=== PATIENT | female | born 1965 | race Caucasian/White ===

== ENCOUNTER 2022-09-27 08:29 | Outpatient (REF) | payer MEDICARE, SELFPAY ==
--- NOTE | ~2022-09-27 | XR_ITS ---
EXAMINATION: XR SHOULDER, RIGHT CLINICAL INFORMATION: Shoulder pain COMPARISON: None available. TECHNIQUE: Three views of the right shoulder. FINDINGS: Mild osteoarthritic changes acromioclavicular joint. Advanced degenerative changes glenohumeral joint with prominent inferior osteophytes and hypertrophic change. Focal ossific/calcific convexity along the central superior aspect of the humeral head. Degenerative changes in the imaged upper thoracic spine. XR/XR shoulder RT min 2V IMPRESSION: Advanced degenerative changes glenohumeral joint . Focal ossific/calcific convexity along the central superior aspect of the humeral head. Additional imaging with CT scan or MRI should be considered for better visualization as these modalities are much more sensitive for detection of fracture or other underlying pathology.
== END 2022-09-27 08:30 | disposition home or self-care (01) ==
LOC: HO.HOSX 08:29
PROVIDERS: Visit Provider Orthopaedic Surgery
DX: M19.011 Primary osteoarthritis, right shoulder (principal)
CPT/HCPCS: 20610; 73030; 99202; J1100

== ENCOUNTER 2022-09-27 10:41 | Outpatient (AMB) | payer MEDICARE, SELFPAY ==
--- NOTE | 2022-09-27 10:45 | A.OFFVIS_ITS ---
Intake Vital Signs 09/27/22 10:55 Height 5 ft 5.5 in Weight 142 lb BMI 23.3 Intake Visit Reasons: SEVERITY OF ILLNESS COORDINATOR- RT Shoulder pain Intake Note: Marylin is a 57 year old right hand dominant female who presents today as a new patient with complaints of right shoulder pain. Patient reports that she has been having pain in the right shoulder since about April, she is active in working out when she felt a pop while working with kettlebells. She was seen with her pcp, who sent her to physical therapy. She has been working with [facility] in [place] for about 4 sessions with no releif. She feels tingling in the right hand, she finds increased pain with reaching, lifting and while sleeping as she sleeps on the right side. She is taking Meloxicam for her pain which helps mildy. Allergies tramadol [From [facility]] Allergy (Intermediate, Unverified 11/15/19 16:23) RASH FRUIT, SKINS Allergy (Intermediate, Uncoded 11/15/19 16:23) THROAT ITCHES HPI SEVERITY OF ILLNESS COORDINATOR- RT Shoulder pain HPI Details Marylin is a 57 year old woman who complains of ~5 months right shoulder pain. She has pain with reach and lifting activities, worse at night. She says she has difficulty sleeping on her right side. She says she was active and exercising at home when she felt a painful popping in her shoulder while lifting Kettlebells. She has done a few sessions of PT, with no relief. She finds mild relief from meloxicam. She has a hx of left shoulder several years ago at an outside clinic. She says her right shoulder symptoms feel similar. She has a hx of left TKA done by me. She says this is doing well, she has some mild pain but this is tolerable. 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 - Review of Systems Const All systems reviewed & are unremarkable except as noted in HPI and below Physical Exam Vital Signs: BMI result Body Mass Index 23.3 Const General: no acute distress, alert and awake Orientation/consciousness: patient oriented x3 HEENT Head: Yes normocephalic and Yes atraumatic Eyes EOM: EOMs intact bilaterally Resp Effort & Inspection: normal respiratory effort and able to speak in complete sentences Cardio Jugular venous distension: no JVD Skin General skin exam: turgor normal Rashes: no rashes Neuro General: patient oriented x3 Extrem Other: Right Shoulder: Pain at 20 degrees ER Limited ER with abduction - empty can - impingement Psych Appearance: grossly normal Affect: normal affect Attitude: cooperative Office Procedures Joint Injection/Drain Joint Injection/Drain Details: Injected 1 mL of Decadron and 3 mL 1% lidocaine and 3 mL of 0.25% Marcaine. Site was prepped using aseptic technique. Patient tolerated the procedure well. Primary Site: right shoulder (GH joint) Approach Used: posterolateral Coding 40507 - Large joint Procedure code (CPT) selection complete Results Reviewed Results Reviewed: 09/27/22 11:26 BUPivacaine MPF 0.25 % [Sensorcaine-MPF 0.25% 10 ML] 10 ml .ROUTE .STK-MED ONE Lidocaine HCl 2 % MPF [Xylocaine 2 % MPF] 5 ml .ROUTE .STK-MED ONE dexAMETHasone sod phosphate [Decadron] 4 mg .ROUTE .STK-MED ONE I personally reviewed relevant radiographs. Moderate GH OA with inferior osteophytes Assessment & Plan Assessment & Plan (1) Osteoarthritis of right shoulder: Code(s): M19.011 - Primary osteoarthritis, right shoulder Plan: This is a 57 year old woman with right shoulder GH OA. She has pain with daily activity, worse with reaching & lifting activities, ROM, and at night. Her motion is limited and she has found no relief from steroid injections, PT, or NSAIDs. I discussed her diagnosis and treatment options. I injected her right GH joint, which she tolerated well. I recommend NSAIDs & PT. I ordered a new course of PT, she can follow up prn. Plan Scribed for Guilherme Calix MD by Usman Diallo, medical coding manager, on 09/27/22 at 11:20 AM, EST. Orders: Orders XR shoulder RT min 2V 09/27/22 M25.519 - Pain in unspecified shoulder PT Evaluation and Treatment 09/27/22 M19.011 - Primary osteoarthritis, right shoulder Coding Level of Care Code New Pt Level 4 (19142) Diagnoses Osteoarthritis of right shoulder M19.011 CPT Codes Coding - 85721 Large joint: 30271 - Large joint ([id number])
[2022-09-27 10:55] VITALS: BMI 23.3
== END 2022-09-27 11:43 | disposition home or self-care (01) ==
PROVIDERS: PCP Internal Medicine; Visit Provider Orthopaedic Surgery
DX: M19.011 Primary osteoarthritis, right shoulder (principal)
CPT/HCPCS: 20610; 99204

== ENCOUNTER 2022-10-15 13:00 | Outpatient (RCR) | payer MEDICARE, SELFPAY | END 2022-10-15 13:49 | disposition home or self-care (01) | LOC: HO.PTCHIC 13:00 | PROVIDERS: PCP Student in an Organized Health Care Education/Training Program; Visit Provider Physician Assistant Medical | DX: M25.511 Pain in right shoulder (principal) | CPT/HCPCS: 97014; 97110; 97140; 97161 ==

== ENCOUNTER 2024-09-27 08:10 | Outpatient (REF) | payer OTHER, SELFPAY ==
--- NOTE | ~2024-09-27 | XR_ITS ---
EXAMINATION: XR KNEE, LEFT CLINICAL INFORMATION: M25.562 - Pain in left knee COMPARISON: 05/26/2015. TECHNIQUE: Three views of the left knee. FINDINGS: No fracture, dislocation, or suspicious bone lesion. There is normal alignment. There is notable patella catherine. 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 Cannot exclude underlying patellar tracking abnormality. Mild tricompartmental compartment joint space narrowing, with small marginal osteophytic spurs. No significant joint effusion. Normal soft tissues. XR/XR knee LT 3V IMPRESSION: 1. No acute bony abnormalities of the left knee. 2. Mild tricompartmental osteoarthritis. 3. Patella catherine with enthesopathic spurring of the tibial tubercle, possibly on the basis of old Lee-Schlatter disease. This is stable from 2016. Electronically signed by: Aquiles Curtis MD 09/27/2024 01:36 PM EDT
--- OUTSIDE RECORDS SUMMARY | 2024-09-28 08:14 | XMS_ITS | Clinical Summary ---
Author Organization [facility] it Address [address] [place] [address] Care Team Providers Care Hydramatic Specialist Name Role Phone Rena Cunningham MD Primary [...] age to complete this topic Care Teams Hydramatic Specialist Relationship Specialty Start Date End Date Rena Cunningham MD [address] [address] PCP - General Internal Medicine 04/11/17
--- OUTSIDE RECORDS SUMMARY | 2024-09-28 08:14 | XMS_ITS | Clinical Summary ---
Author Organization [facility] Address [address] [place] [address] Care Team Providers Care Bill Peddler Name Role Phone Rena Cunningham MD Primary [...] age to complete this topic Care Teams Bill Peddler Relationship Specialty Start Date End Date Rena Cunningham MD [address] [address] PCP - General Internal Medicine 04/11/17
--- OUTSIDE RECORDS SUMMARY | 2024-09-28 08:14 | XMS_ITS | Patient Health Record ---
Author Organization [facility] Address [address] [place] [address] Care Team Providers Care Warehousing Technician Name Role Phone Julissa Atkinson MD, Rena Preston Primary Care Prov ider Unavailable Angel Marroquin Unavailable [phone] Allergies Allergen (clinical drug ingredient) Drug/Non Drug [...] primary osteoarthritis of the ankle and/or foot ([id number]) Primary osteoarthrit is, left ankle and foot (M19.072) Active confirmed Plan Of Treatment Pending Test Test Name Order Date , [id number]/INJECT, JOINT/BURSA 0 06/26/2019 Insurance Providers Payer Name Payer Address Payer Phone Subscriber Number Group Number Insured Name Patient Relationship to Insured Coverage Start Date Coverage End Date [facility] SCO Claims [address] [place] [phone] [id number] Marylin Moss Self - patient is the insured Medical (General) History Medical History History ICD Code Arthritis Back,Hip,and Knee pain Sciatica Surgical History Surgery Date(Month/Year) right knee osteotomy 06/2014
== END 2024-09-27 08:11 | disposition home or self-care (01) ==
LOC: HO.HOSX 08:10
PROVIDERS: Visit Provider Orthopaedic Surgery
DX: M17.12 Unilateral primary osteoarthritis, left knee (principal); M25.562 Pain in left knee; Z79.899 Other long term (current) drug therapy; Z98.890 Other specified postprocedural states
CPT/HCPCS: 73562; 99212

== ENCOUNTER 2024-09-27 13:19 | Outpatient (AMB) | payer MEDICARE, SELFPAY ==
--- NOTE | 2024-09-27 13:22 | MHC.OFFVIS ---
Intake Visit Reasons: New prob-Lt knee pain Intake Note: Marylin is a 59 year old female who presents today as a new patient for left knee pain. Patient states she had an injury on [facility] [place] day of this year where she twisted her knee. She is a previous patient of Dr. José. She has gone to physical therapy but has not gotten any relief. X rays were updated in the office today and she is currently wearing a brace. The patient states that she had similar pain in her left knee approximately 2 years ago. She was evaluated at [facility] by DANIEL Braun. She was given a cortisone injection into her left knee at that time which gave her minimal relief. She has not had a viscosupplementation injection. She wishes to hold off on surgery if at all possible. She has failed the last 3 months of conservative treatment. At this point her left knee pain is interfering with her activities of daily living and her ability to sleep well through the night. Heel Trimmer Required: No Allergies tramadol (From [facility]) Allergy (Intermediate, Unverified 09/27/24 13:27) RASH FRUIT, SKINS Allergy (Intermediate, Uncoded 09/27/24 13:27) THROAT ITCHES Medication List - Last Reconciled 09/27/24 by Izabella Art RN meloxicam 7.5 mg PO DAILY multivitamin 1 tab PO DAILY PFSH Surgical History (Updated 09/27/24 @ 13:29 by Izabella Art RN) History of right shoulder replacement H/O left knee surgery History of arthroscopy of left shoulder Social History (Updated 09/27/22 @ 10:58 by Jazzy Nash CMA) Patient Tobacco Use Status: Never used Tobacco Current occupational status: employed 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 - Physical Exam Const Other: Well-nourished well-developed very friendly female awake alert and oriented x3 in no acute distress Extrem Other: Bilateral lower extremity examination shows good capillary refill, no skin lesions noted, normal sensation light touch Left knee examination shows a minimal effusion, palpable crepitus with range of motion, pain with range of motion, no instability Results Reviewed Results Reviewed: X-rays of the patient's left knee show moderate to severe patellofemoral joint space narrowing, subchondral sclerosis, no acute bony abnormalities MRI report of the patient's left knee shows no evidence of meniscus tearing, no ligamentous injury, severe patellofemoral joint degenerative changes Assessment & Plan Assessment & Plan (1) Osteoarthritis of left knee: Code(s): M17.12 - Unilateral primary osteoarthritis, left knee Category: Medical Plan Ms. Moss presents with left knee pain due to osteoarthritis. I had a lengthy discussion with the patient regarding the treatment options. She wishes to hold off on surgery for as long as possible. I agree with this plan. I will see if her insurance company will cover a viscosupplementation injection, such as Durolane, for her left knee. I will see her back once the injection is available. Feel free to call me at any time should questions regarding her orthopedic management arise. I spent 22 minutes in reviewing the patient's records and imaging studies, seeing the patient and documenting in the medical record. Orders: Orders XR knee LT 3V Today M25.562 - Pain in left knee Coding Level of Care Code Est Pt Level 3 (81947) Complex EM visit Add On G2211 Diagnoses Osteoarthritis of left knee M17.12
--- OUTSIDE RECORDS SUMMARY | 2024-09-27 13:32 | XMS_ITS | Clinical Summary ---
Author Organization [facility] Address [address] [place] [address] Care Team Providers Care Oyster Picker Name Role Phone Rena Cunningham MD Primary Care Prov ider Allergies Active Allergy Reactions Criticality Noted Date Comments Tramadol 04/19/2017 Medications Medication Sig Dispensed Refills Start Date End Date Status traZODone (DESYREL) 50 MG tablet trazodone 25 mg tablet 0 Active gabapentin (NEURONTIN) 300 MG capsule TAKE 2 CAPSULE(S) EVERY DAY BY BY MOUTH AT BEDTIME FOR 30 DAYS. 1 02/22/2018 Active lamoTRIgine (LaMICtal) 150 MG tablet 0 11/20/2019 Active cyclobenzaprine (FLEXERIL) 5 MG tablet TAKE 1 TABLET BY MOUTH AT BEDTIME NEEDED FOR 30 DAYS 0 04/30/2020 Active meloxicam (MOBIC) 15 MG tablet Take 15 mg by mouth daily. 0 04/30/2020 Active diclofenac (VOLTAREN) 50 MG EC tablet diclofenac sodium 50 mg tablet,delayed release BID 0 06/04/2013 Active ibuprofen 800 MG tablet Take 800 mg by mouth every 8 (eight) hours as needed. for pain 0 06/27/2020 Active oxyCODONE HCl ER (OxyCONTIN) 10 MG T12A controlled release tablet OxyContin 10 mg tablet,crush resistant,extended release 0 Active oxyCODONE-acetaminop hen (PERCOCET) 10-325 MG per tablet oxycodone-acetaminop hen 10 mg-325 mg tablet 0 Active tamsulosin (FLOMAX) 0.4 MG CAPS tamsulosin 0.4 mg capsule 0 Active HYDROmorphone (DILAUDID) 2 MG tablet 0 2021 Active GaviLyte-C 240 g solution TAKE 8 OUNCE BY MOUTH DIRECTED 0 04/06/2021 Active Active Problems Problem Noted Date Diagnosed Date Shoulder stiffness, left 05/06/2021 Tear of ulnar collateral ligament of left elbow 09/26/2019 Tear of medial collateral li gament of elbow, left, subsequent encounter 09/26/2019 Primary osteoarthritis of right knee 01/15/2018 Acute pain of right knee 04/19/2017 Immunizations Name Administration Dates Next Due Covid-19 (Pfizer) Dilution Required 02/12/2021,0 07/06/2020,06/12/2020 Covid-19 (Pfizer) Ready To Use 07/13/2021 Family History Medical History Relation Name Comments Heart disease Brother Hypertension Brother Arthritis Mother Hypertension Mother Arthritis Sister Relation Name Status Comments Brother Mother Sister Social History Tobacco Use Types Packs/Day Years Used Date Smoking Tobacco: Never Smokeless Tobacco: Never Alcohol Use Standard Drinks/Week Comments Yes 2 (1 standard drink = 0.6 oz pur e alcohol) Sex and Gender Information Value Date Recorded Sex Assigned at Female 09/20/2019 10:51 AM EDT Gender Identity Not on file Sexual Orientation Not on file Job Start Date Occupation Industry Not on file Not on file Not on file Last Filed Vital Signs Vital Sign Reading Time Taken Comments Blood Pressure - - Pulse - - Temperature - - Respiratory Rate - - Oxygen Saturation - - Inhaled Oxygen Concentration - - Weight 64.9 kg (143 lb) 05/06/2021 1:19 PM EST Height 165.1 cm (5' 5 ) 05/06/2021 1:19 PM EST Body Mass Index 23.8 05/06/2021 1:19 PM EST Plan of Treatment Health Maintenance Due Date Last Done Comments Hepatitis B Vaccines (1 of 3 - 3-dose series) 1965 Hepatitis C Screening 1965 Depression Screening 1977 BMI Counseling 1983 Preventative Health Evaluation 1983 Cervical Cancer Screening (Pap Smear) 1986 Colon Cancer Screening (Colonoscopy) 2010 Breast Cancer Screening (Mammogram) 2015 Shingrix-Zoster Vaccine (1 of 2) 2015 DTap / Tdap / Td (2 - Td or Tdap) 06/02/2022 06/02/2012 COVID-19 Vaccine ( season) 2023 07/13/2021, 02/12/2021, 07/06/2020, Additional history exists Influenza Vaccine (#1) 2024 Pneumococcal Vaccine Aged Out No long er eligible based on patient's age to complete this topic RSV Ped < 20 months Aged Out No longe r eligible based on patient's age to complete this topic Care Teams Oyster Picker Relationship Specialty Start Date End Date Rena Cunningham MD [address] [address] PCP - General Internal Medicine 04/11/17
--- OUTSIDE RECORDS SUMMARY | 2024-09-27 13:32 | XMS_ITS | Patient Health Record ---
Author Organization [facility] Address [address] [place] [address] Care Team Providers Care Development Assistant Name Role Phone Julissa Atkinson MD, Rena Preston Primary Care Prov ider Unavailable Angel Marroquin Unavailable [phone] Allergies Allergen (clinical drug ingredient) Drug/Non Drug Allergy documented on EMR Reaction Allergy Type Onset Date Status tramadol Ultram rash Drug Allergy Active Reason For Referral No Information Medications Medication SIG (Take, Route, Fr equency, Duration) Notes Start Date End Date Status Meloxicam 15 MG 1 tablet Orally Once a day; Duration: 30 day(s) Active TraZODone HCl ER Act chioma Gabapentin 300 MG 1 capsule Orally Onc e a day; Duration: 30 day(s) Active Social History Tobacco Use: Social History Observation Description Date Details (start date - stop date) Never Smoker NA - NA Tobacco Use/Smoking Question Answer Notes Are you a: nonsmoker Additional Findings: Tobacco Non-User Current no n-smoker Alcohol Screen Question Answer Notes Did you have a drink contain ing alcohol in the past year? Yes How often did you have a dri nk containing alcohol in the past year? 2 to 4 times a month (2 points) Points 2 Interpretation Negative Tobacco use other than smoking: Question Answer Notes Are you an other tobacco user? No Problems Problem Type SNOMED Code ICD Code Onset Dates Problem Status W/U Status Risk Notes Problem Localized, primary osteoarthritis of the ankle and/or foot (916809910) Primary osteoarthrit is, left ankle and foot (M19.072) Active confirmed Plan Of Treatment Pending Test Test Name Order Date , [id number]/INJECT, JOINT/BURSA 0 06/26/2019 Insurance Providers Payer Name Payer Address Payer Phone Subscriber Number Group Number Insured Name Patient Relationship to Insured Coverage Start Date Coverage End Date [facility] SCO Claims [address] [place] [id number] Marylin Moss Self - patient is the insured Medical (General) History Medical History History ICD Code Arthritis Back,Hip,and Knee pain Sciatica Surgical History Surgery Date(Month/Year) right knee osteotomy 06/2014
--- OUTSIDE RECORDS SUMMARY | 2024-09-27 13:32 | XMS_ITS | Clinical Summary ---
Author Organization [facility] it Address [address] [place] [address] Care Team Providers Care Photographic Colorist Name Role Phone Rena Cunningham MD Primary Care Provider Surgical History Surgery Date Site/Laterality Comments KNEE SURGERY PROCEDURE:KNEE SURGERY SHOULDER SURGERY PROCEDURE:SHOULDER SURGERY Medical History Medical History Date Comments Arthritis DX:Arthritis Family History Medical History Relation Name Comments Heart disease Brother Hypertension Brother Arthritis Mother Hypertension Mother Arthritis Sister Relation Name Status Comments Brother Mother Sister Social History Tobacco Use Types Packs/Day Years Used Date Smoking Tobacco: Never Smokeless Tobacco: Never Alcohol Use Standard Drinks/Week Comments Yes 2 (1 standard drink = 0.6 oz pur e alcohol) Comments Unknown Sex and Gender Information Value Date Recorded Sex Assigned at Not on file Legal Sex Female 9:07 AM EST Gender Identity Not on file Sexual Orientation Not on file Obstetrics History Last Filed Vital Signs Vital Sign Reading [...] Health Maintenance Due Date Last Done Comments Breast Cancer Screening 1965 DTaP,Tdap,and Td Vaccines (1 - Tdap) 02/17/1984 Hepatitis B Vaccines (1 of 3 - 19+ 3-dose series) 02/17/1984 Cervical Cancer Screening: Pap Smear 1986 Pneumococcal Vaccine: 50+ Years (1 of 1 - PCV) 2015 Zoster Vaccines (1 of 2) 2015 Colorectal Cancer Screening: Colonoscopy 01/31/2022 HIV Screening 01/31/2022 Hepatitis C Screening 01/31/2022 Social Influencers of Health Screening 01/31/2022 COVID-19 Vaccine ( season) 2023 07/13/2021, 02/12/2021, 07/06/2020, Additional history exists Depression Screening 02/29/2024 Influenza Vaccine (#1) 2024 RSV Immunization Adult Patients (1 - 1-dose 75+ series) 02/17/2040 HIB Vaccines Aged Out No longer eligi ble based on patient's age to complete this topic HPV Vaccines Aged Out No longer eligi ble based on patient's age to complete this topic Hepatitis A Vaccines Aged Out No long er eligible based on patient's age to complete this topic IPV Vaccines Aged Out No longer eligi ble based on patient's age to complete this topic MMR Vaccines Aged Out No longer eligi ble based on patient's age to complete this topic Meningococcal ACWY Vaccine Aged Out N o longer eligible based on patient's age to complete this topic Meningococcal B Vaccine Aged Out No l onger eligible based on patient's age to complete this topic RSV Immunization Patients Under 20 months Aged Out No longer eligible based on patient's age to complete this topic Varicella Vaccines Aged Out No longer eligible based on patient's age to complete this topic Care Teams Photographic Colorist Relationship Specialty Start Date End Date Rena Cunningham MD [address] [address] PCP - General Internal Medicine 04/11/17
== END 2024-09-27 13:48 | disposition home or self-care (01) ==
LOC: HO.HOS 13:19
PROVIDERS: PCP Student in an Organized Health Care Education/Training Program; Visit Provider Orthopaedic Surgery
DX: M17.12 Unilateral primary osteoarthritis, left knee (principal)
CPT/HCPCS: 99213; G2211

== ENCOUNTER → 2024-09-27 13:20 | Outpatient (BNV) | payer MEDICARE, SELFPAY | PROVIDERS: Visit Provider Radiology Diagnostic Radiology | DX: M17.12 Unilateral primary osteoarthritis, left knee (principal) | CPT/HCPCS: 73562 ==

== ENCOUNTER 2024-11-20 14:59 | Outpatient (AMB) | payer OTHER, SELFPAY ==
--- OUTSIDE RECORDS SUMMARY | 2024-11-16 11:00 | XMS_ITS | Encounter Summary ---
Author Organization [employer] Address [address] [place] [address] Care Team Providers Care Ic Design Engineer Name Role Phone Estefanía Neri MD Primary Care Provider [phone] Reason for Visit * Reason Comments Consult Pain localized to el bow but can radiate down extremity intermittently * Consultation (Routine) - Closed Specialty Diagnoses / Procedures Referred By Contac t Referred To Contact Orthopedic Surgery / Orthopaedic Surgery Diagnoses Left elbow pain Left shoulder pain Estefanía Neri MD [address] [address] Phone: tel: fax: Nelly Kenny MD [address] [address] Phone: tel: fax: Referral ID Status Reason Start Date Expiration Date V isits Requested Visits Authorized [id number] Closed Specialty Services Required 10/22/2024 10/22/2025 1 1 Encounter Details Date Type Department Care Team ([facility] st Contact Info) Description 11/16/2024 11:00 AM EDT Consult Orthopedic Surgery - [place] 175 [facility] [address] [place] [address] Nelly Kenny MD 230 [place] [address] Left elbow pain; Left shoulder pain Social History Tobacco Use Types Packs/Day Years Used Date Smoking Tobacco: Never Smokeless Tobacco: Never Alcohol Use Standard Drinks/Week Comments Yes 2 (1 standard drink = 0.6 oz pur e alcohol) Comments Unknown Sex and Gender Information Value Date Recorded Sex Assigned at Not on file Legal Sex Female 9:07 AM EST Gender Identity Not on file Sexual Orientation Not on file documented as of this encounter Last Filed Vital Signs Vital Sign Reading Time Taken Comments Blood Pressure - - Pulse - - Temperature - - Respiratory Rate - - Oxygen Saturation - - Inhaled Oxygen Concentration - - Weight 72.6 kg (160 lb) 11/16/2024 11:09 AM EDT Height 165.1 cm (5' 5 ) 11/16/2024 11:09 AM EDT Body Mass Index 26.63 11/16/2024 11:09 AM EDT documented in this encounter Progress Notes * Nelly Kenny MD - 11/16/2024 11:00 AM EDT [facility] Date: 11/16/24 CHIEF COMPLAINT/REASON FOR VISIT: Left elbow injury SUBJECTIVE: Patient is a 59-year-old female who unfortunately fell about 4 weeks ago. Her knee buckled she missed a step and she fell down landing predominantly on the left side. She did see her PCP. She is sentfor therapy. Things are slowly getting better. She has some lingering pain in the left elbow. She does have a history of shoulder arthritis. She has had shoulder surgery on the right in the past. OBJECTIVE: Visit Vitals Ht 1.651 m (65 ) Wt 72.6 kg (160 lb) BMI 26.63 kg/m?? Smoking Status Never BSA 1.8 m?? On exam patient is able to extend both elbows. The left however is just a few degrees shy of full extension. Also with flexion of the left goes to about 125 and the right goes to 135. She is able to pronate and supinate both forearms. She can gently flex and extend both wrist. On the left side she has tenderness to palpation of the olecranon as well as the lateral epicondyle. There is no radiocapitellar crepitance. Varus and valgus force was applied to the elbow without any instability or apprehension. Biceps tendon was palpable. Shoulder range of motion she can go forward flexion about 90. Pure abduction about 70. And with herarm at her side she can internally rotate and put her arm across to her abdomen and then externallyrotate to about 40. XR Elbow 3+ Views Left AP, lateral, oblique of the left elbow was obtained on 11/16/2024. There is some medial joint space narrowing just starting consistent with early arthritis but otherwise the joint space is maintained. There is some peaking of the olecranon tip as well as the coronoid all consistent with early arthritis. Joint spaces maintained. No obvious fractures or lytic lesions. ASSESSMENT: 1. Left elbow pain Ambulatory referral to Orthopedic Surgery XR Elbow 3+ Views Left 2. Left shoulder pain Ambulatory referral to Orthopedic Surgery I reassured the patient I did not see any evidence of fracture or other significant ligamentous injury. I suspect it was just a bad contusion and she still feeling the effects. She does have some early arthritis in the joint but that was there before the fall as well. She should just finish up withtherapy. I suspect it will still be sore for another month or 2. If there are any lingering symptoms thereafter she will follow-up with me on a as needed basis. PLAN: Follow-up as necessary Nelly Kenny MD has a past medical history of Arthritis. has a past surgical history that includes Knee surgery and Shoulder surgery (Right, 03/2024). Home Medications amLODIPine (NORVASC) 5 mg tablet Take 1 tablet (5 mg total) by mouth 1 (one) time each day. diclofenac (VOLTAREN) 75 mg EC tablet TWO TIMES DAILY for 30 days and then as needed gabapentin (NEURONTIN) 300 mg capsule TAKE 1 CAPSULE(S) in the evening as needed for 30 days meloxicam (MOBIC) 7.5 mg tablet Take 1 tablet (7.5 mg total) by mouth 1 (one) time each day. reports that she has never smoked. She has never used smokeless tobacco. She reports current alcohol use of about 2.0 standard drinks of alcohol per week. She reports that she does not use drugs. documented in this encounter Plan of Treatment Upcoming Encounters Date Type Department Care Team (Late st Contact Info) Description 11/22/2024 2:30 PM EDT Treatment [facility] [address] [address] Kade Pagan, ELEANOR 11/26/2024 5:30 PM EDT Treatment [facility] [address] [address] Joshua Reveles, DELI BAKERY CLERK 11/29/2024 2:45 PM EDT Treatment [facility] [address] [address] Adelina Pritchett, PT documented as of this encounter Results * XR Elbow 3+ Views Left (11/16/2024 11:19 AM EDT) Anatomical Region Laterality Modality Upper Extremities, Elbow Left Compute d Radiography Narrative 11/16/2024 10:18 PM EDT AP, lateral, oblique of the left elbow was obtained on 11/16/2024. There is some medial joint space narrowing just starting consistent with early arthritis but otherwise the joint space is maintained. There is some peaking of the olecranon tip as well as the coronoid all consistent with early arthritis. Joint spaces maintained. No obvious fractures or lytic lesions. Nelly Kenny MD IMG XR PROCEDURES Final Resul t documented in this encounter Visit Diagnoses Diagnosis Left elbow pain Pain in joint, upper arm Left shoulder pain Pain in joint, shoulder region documented in this encounter Historical Medications * This list may reflect changes made after this encounter. meloxicam (MOBIC) 7.5 mg tablet Take 1 tablet (7.5 mg total) by mouth 1 (one) time each day. 02/27/2024 gabapentin (NEURONTIN) 300 mg capsule TAKE 1 CAPSULE(S) in the evening as needed for 30 days 02/22/2018 diclofenac (VOLTAREN) 75 mg EC tablet TWO TIMES DAILY for 30 days and then as needed 10/16/2024 amLODIPine (NORVASC) 5 mg tablet Take 1 tablet (5 mg total) by mouth 1 (one) time each day. 10/16/2024 added in this encounter Orders Outpatient Referral Count Last Ordered Date [facility] st Ordered Date AMB REFERRAL TO ORTHOPEDIC SURGERY 1 2024 documented in this encounter Care Teams Ic Design Engineer Relationship Specialty Start Date End Date Estefanía Neri MD [address] [address] PCP - General Internal Medicine 10/22/24 documented as of this encounter
--- OUTSIDE RECORDS SUMMARY | 2024-11-19 15:30 | XMS_ITS | Encounter Summary ---
Author Organization [facility] Address [address] [place] [address] Care Team Providers Care Heat Treat Worker Name Role Phone Estefanía Neri MD Primary Care Provider [phone] Reason for Visit * Consultation (Routine) - Authorized Specialty Diagnoses / Procedures Referred By Calvin guillen Referred To Contact Physical Therapy Diagnoses Pain in left elbow Estefanía Neri MD 3[address] [facility] [address] [place] [address] Phone: tel: fax: Referral ID Status Reason Start Date Expiration Date Visits Requested Visits Authorized [id number] Authorized Specialty Services Required 10/24/2024 10/24/2025 21 21 Encounter Details Date Type Department Care Team (Late st Contact Info) Description 11/19/2024 3:30 PM EDT Treatment [facility] 175 [facility] [address] [place] [phone] Geovanny Pritchett PTA Pain in left elbow (Primary Dx) Social History Tobacco Use Types Packs/Day Years [...] on file documented as of this encounter Progress Notes * Geovanny Pritchett PTA - 11/19/2024 3:30 PM EDT [facility] - Outpatient PHYSICAL THERAPY DAILY TREATMENT NOTE - OP Date: 11/19/2024 Visit Number: [id number] Patient Name: Marylin Moss : 1965 Age: 59 y.o. Gender: female Diagnosis: No diagnosis found. Date of Onset/Surgery: 10/05/2024 Referring Provider: Estefanía Neri MD Insurance: Payor: [facility] MEDICARE / Plan: [employer] ONE CARE / Product Type: *No Product type* / Patient Identified by: Geovanny Pritchett PTA Language: Speaks and understands Bengali as preferred language with no non garment sewing machine operator required Medications: Current Outpatient Medications on File Prior to Visit Medication Sig Dispense Refill amLODIPine (NORVASC) 5 mg tablet Take 1 [...] by mouth 1 (one) time each day. No current facility-administered medications on file prior to visit. Allergies: is allergic to tramadol. Precautions: History of R shoulder replacement. Fall risk: No SUBJECTIVE Subjective Report: doing better but still has some pain Chart Reviewed: Yes Pain: 5/10 left elbow TREATMENT INTERVENTION: Ube 6 Shldr pulleys flexion and abdx 20 Wall slides x10 10 sec holds (L) Pec stretching x3 in true T-band rows and ext x30 blue Open books x30 green Arom left arm flex and ext with sup and pronation Manual over-pressure supination and pronation ASSESSMENT/Response to Treatment Good- some soreness at end range of motion Patient Education: Education provided: hep Education Provided To: Patient utilizing Explanation mode(s) of education Response to Education: Applied Knowledge PLAN POC Development/Review: No Change in the Plan of Care; Participants: Patient Interventions Time Entry: Modalities: Therapeutic procedures: Total Treatment Time: 30 Documentation completed by Geovanny Pritchett PTA documented in this encounter Plan of Treatment Upcoming Encounters Date Type Department Care Team (Late st Contact Info) Description 11/22/2024 2:30 PM EDT Treatment [address] [address] Kade Pagan, FIELD ARTILLERY OPERATIONS MAN 11/26/2024 5:30 PM EDT Treatment [address] [address] Joshua Reveles, FIELD ARTILLERY OPERATIONS MAN 11/29/2024 2:45 PM EDT Treatment [address] [address] Adelina Pritchett, PT documented as of this encounter Visit Diagnoses Diagnosis Pain in left elbow- Primary Pain in joint, upper arm documented in this encounter Care Teams Heat Treat Worker Relationship Specialty Start Date End Date Estefanía Neri MD [address] [address] PCP - General Internal Medicine 10/22/24 documented as of this encounter
--- NOTE | 2024-11-20 15:07 | A.OFFVIS_ITS ---
Vital Signs 11/20/24 15:11 Height 5 ft 5 in Weight 160 lb BMI 26.6 Intake Visit Reasons: Inj- Left Knee Durolane Intake Note: Marylin is a 59 year old female who presents with complaints of progressively worsening left knee pain. She describes her pain as sharp in nature. She has failed the last 3 months of conservative treatment which has included Tylenol, meloxicam, a home exercise program and physical therapy exercises. She does wear a knee brace which gives her only mild relief. She wishes to hold off on total knee replacement surgery if at all possible. She has had cortisone injections in the past which gave her minimal relief. Allergies tramadol (From [facility]) Allergy (Intermediate, Verified 11/20/24 15:12) RASH FRUIT, SKINS Allergy (Intermediate, Uncoded 09/27/24 13:27) THROAT ITCHES Medication List - Last Reconciled 11/20/24 by Ramo José MD acetaminophen 1,000 mg PO TID meloxicam 7.5 mg PO DAILY multivitamin 1 tab PO DAILY PFSH Surgical History (Updated 09/27/24 @ 13:29 by Izabella Art RN) History of right shoulder replacement H/O left knee surgery History of arthroscopy of left shoulder Social History (Updated 09/27/22 @ 10:58 by Jazzy Nash CMA) Patient Tobacco Use Status: Never used Tobacco Current occupational status: employed 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 - Physical Exam Vital Signs: BMI result Body Mass Index 26.6 Const Other: Well-nourished well-developed very friendly female awake alert and oriented x3 in no acute distress Extrem Other: Left knee examination shows a minimal effusion, palpable crepitus with range of motion, pain with range of motion, no instability Office Procedures AMB Joint Injection/Aspiration Joint Injection/Aspiration Primary Site: left knee Prep: site was prepped using aseptic technique Injected: 60 mg of (Durolane viscosupplementation) and 1% plain lidocaine Procedure: The patient tolerated the procedure well Coding 43411 - Large joint Procedure code (CPT) selection complete Results Reviewed Results Reviewed: X-rays of the patient's left knee taken previously show joint space narrowing, subchondral sclerosis, no acute bony abnormalities Assessment & Plan Assessment & Plan (1) Osteoarthritis of left knee: Code(s): M17.12 - Unilateral primary osteoarthritis, left knee Category: Medical Plan Ms. Moss presents with left knee pain due to osteoarthritis. The risks benefits of a left knee Durolane viscosupplementation injection were discussed at length with the patient. The patient wished to proceed. She tolerated the injection well. She will continue with her home exercise program. She will contact me prior to her follow-up appointment in 2-3 months should any questions or concerns arise. Feel free to call me at any time should questions regarding her orthopedic management arise. I spent 21 minutes in reviewing the patient's records and imaging studies, seeing the patient and documenting in the medical record. Orders: Orders AMB Joint Injection/Aspiration Today M17.12 - Unilateral primary osteoarthritis, left knee Coding Level of Care Code Est Pt Level 3 (21728) Complex EM visit Add On G2211 Diagnoses Osteoarthritis of left knee M17.12 CPT Codes Coding - 55284 Large joint: 74465 - Large joint ([id number])
[2024-11-20 15:11] VITALS: BMI 26.6
--- OUTSIDE RECORDS SUMMARY | 2024-11-20 18:02 | XMS_ITS | Clinical Summary ---
Author Organization [facility] Address [address] [place] [address] Care Team Providers Care Enterprise Analyst Name Role Phone Rena Cunningham MD Primary [...] Tdap) 06/02/2022 06/02/2012 COVID-19 Vaccine ( season) 2024 07/13/2021, 02/12/2021, 07/06/2020, Additional history exists Influenza Vaccine (#1) 2024 Pneumococcal Vaccine Aged Out No long er eligible based on patient's age to complete this topic RSV Ped < 20 months Aged Out No longe r eligible based on patient's age to complete this topic Care Teams Enterprise Analyst Relationship Specialty Start Date End Date Rena Cunningham MD [address] [address] PCP - General Internal Medicine 04/11/17
--- OUTSIDE RECORDS SUMMARY | 2024-11-20 18:02 | XMS_ITS | Clinical Summary ---
Author Organization 175 [facility] Address [address] [place] [address] Phone Care Team Providers Care Pmp Certified Project Manager Name Role Phone Estefanía Neri MD Primary Care Provider [phone] Allergies Active Allergy Reactions Criticality Noted Date Comments Tramadol Rash 06/04/2013 Medications amLODIPine (NORVASC) 5 mg tablet Take 1 tablet (5 mg total) by mouth 1 (one) time each day. 10/16/2024 Active diclofenac (VOLTAREN) 75 mg EC tablet TWO TIMES DAILY for 30 days and then as needed 10/16/2024 Active gabapentin (NEURONTIN) 300 mg capsule TAKE 1 CAPSULE(S) in the evening as needed for 30 days 02/22/2018 Active meloxicam (MOBIC) 7.5 mg tablet Take 1 tablet (7.5 mg total) by mouth 1 (one) time each day. 02/27/2024 Active Active Problems Problem Noted Date Diagnosed Date Bipolar disorder ([facility] V24, [facility] V28) 10/29 Cervical radiculopathy 11/16/2024 Degeneration of lumbar intervertebral disc 11/16 Disorder of sacroiliac joint 11/16/2024 Hydronephrosis 11/16/2024 Left elbow pain 11/16/2024 Left shoulder pain 11/16/2024 Cubital tunnel syndrome on right 2022 Acute pain of right knee 04/19/2017 Brachial neuritis 06/04/2013 Overview (11/16/2024): IMPRESSION: PT IS GETTING PT AT [facility], WILL SEE DR FAJARDO AFTER AND MAY NEED INJECITON, PAIN THER KRYSTA ND OFF FOR 2 YEARS.; RECORDED 06/04/2013 2:19PM BY JUANITA MURILLO MD, OFFICE VISIT Depressive disorder 06/04/2013 Overview (11/16/2024): RECORDED 06/04/2013 1:32PM BY EDWIGE COX, OFFICE VISIT Encounters Date Type Department Care Team Description 11/19/2024 3:30 PM EDT Treatment [address] [address] Geovanny Pritchett, QUALITY REVIEW TRAINER Pain in left elbow (Primary Dx) 11/16/2024 11:00 AM EDT Consult Orthopedic Surgery [address] [address] Nelly Kenny MD Left elbow pain; Left shoulder pain 11/12/2024 4:30 PM EDT Treatment [address] [address] Joshua Reveles, QUALITY REVIEW TRAINER Pain in left elbow (Primary Dx) 11/08/2024 1:00 PM EDT Treatment [address] [address] Joshua Reveles, QUALITY REVIEW TRAINER Pain in left elbow (Primary Dx) 11/05/2024 4:30 PM EDT Treatment [address] [address] Joshua Reveles, QUALITY REVIEW TRAINER Pain in left elbow (Primary Dx) 11/02/2024 8:30 AM EDT Evaluation [address] [phone] Adelina Pritchett, PT Pain in left elbow (Primary Dx) from Last 3 Months Surgical History Surgery Date Site/Laterality Comments KNEE SURGERY PROCEDURE:KNEE SURGERY SHOULDER SURGERY 03/31/2024 - 04/27/2024 Right PROCEDURE:SHOULDER SURGERY Medical History Medical History Date [...] Mass Index 26.63 11/16/2024 11:09 AM EDT Plan of Treatment Upcoming Encounters Date Type Department Care Team (Late st Contact Info) Description 11/22/2024 2:30 PM EDT Treatment [facility] [address] [address] Kade Pagan, ELEANOR 11/26/2024 5:30 PM EDT Treatment [address] [address] Joshua Reveles, QUALITY REVIEW TRAINER 11/29/2024 2:45 PM EDT Treatment [address] [address] Adelina Pritchett, PT Health Maintenance Due Date Last Done Comments Hepatitis A Vaccines (1 of 2 - Risk 2-dose series) 02/17/1984 Hepatitis B Vaccines (1 of 3 - 19+ 3-dose series) 02/17/1984 Cervical Cancer Screening: Pap Smear 1986 Pneumococcal Vaccine: 50+ Years (1 of 1 - PCV) 2015 Breast Cancer Screening 01/30/2022 01/31/2020 Cholesterol Screening (Lipid Panel) 01/31/2022 Colorectal Cancer Screening: Colonoscopy 01/31/2022 HIV Screening 01/31/2022 Hepatitis C Screening 01/31/2022 Medicare Annual Wellness Visit 01/31/2022 Social Influencers of Health Screening 01/31/2022 DTaP,Tdap,and Td Vaccines (2 - Td or Tdap) 06/02/2022 06/02/2012 Depression Screening 02/29/2024 Hypertension/CHF/CAD Annual BMP Blood Test 10/20/2024 COVID-19 Vaccine (5 - season) 2024 07/13/2021, 02/12/2021, 07/06/2020, Additional history exists Influenza Vaccine (#1) 2024 RSV Immunization Adult Patients (1 - 1-dose 75+ series) 02/17/2040 Zoster Vaccines Completed 09/22/2024, 06/26/2024 HIB Vaccines Aged Out No longer eligi [...] on patient's age to complete this topic Procedures Procedure Name Priority Date/Time Associated Diagnosis Comments XR ELBOW 3+ VIEWS LEFT Routine 11/16/2024 11:19 AM EDT Left elbow pain from Last 3 Months Results * XR Elbow 3+ Views Left [...] MD IMG XR PROCEDURES Final Resul t from Last 3 Months Insurance [employer] MEDICARE Member Subscriber Plan / Payer (Ef fective 2023-Present) Name:MARYLIN MOSS Relation to Subscriber:Self Name:Marylin Moss Payer ID:[id number] Group ID:[id number] Type:Not on file Address: [facility] [address] [address] Care Teams Pmp Certified Project Manager Relationship Specialty Start Date End Date Estefanía Neri MD [address] [address] PCP - General Internal Medicine 10/22/24
--- OUTSIDE RECORDS SUMMARY | 2024-11-20 18:02 | XMS_ITS | Patient Health Record ---
Author Organization [facility] Address [address] [place] [address] Care Team Providers Care Top Precipitator Operator Helper Name Role Phone Julissa Atkinson MD, Rena Preston Primary Care Prov ider Unavailable Angel Marroquin Unavailable [phone] Allergies Allergen (clinical drug ingredient) Drug/Non Drug [...] primary osteoarthritis of the ankle and/or foot ([id number]) Primary osteoarthrit is, left ankle and foot (M19.072) Active confirmed Plan Of Treatment Pending Test Test Name Order Date , [id number]/INJECT, JOINT/BURSA 0 06/26/2019 Insurance Providers Payer Name Payer Address Payer Phone Subscriber Number Group Number Insured Name Patient Relationship to Insured Coverage Start Date Coverage End Date [facility] [employer] Claims [address] [place] [id number] Marylin Moss Self - patient is the insured Medical (General) History Medical History History ICD Code Arthritis Back,Hip,and Knee pain Sciatica Surgical History Surgery Date(Month/Year) right knee osteotomy 06/2014
== END 2024-11-20 15:33 | disposition home or self-care (01) ==
LOC: HO.HOS 14:59
PROVIDERS: Visit Provider Orthopaedic Surgery
DX: M17.12 Unilateral primary osteoarthritis, left knee (principal)
CPT/HCPCS: 20610; 99213

== ENCOUNTER → 2024-11-20 14:59 | Outpatient (BNVA) | payer OTHER, SELFPAY | PROVIDERS: Visit Provider Orthopaedic Surgery | DX: M17.12 Unilateral primary osteoarthritis, left knee (principal) | CPT/HCPCS: 20610; 99212; J2003; J7318 ==

== ENCOUNTER 2025-01-07 12:36 | Outpatient (AMB) | payer OTHER, SELFPAY ==
--- NOTE | 2025-01-07 11:02 | A.SPINEOV_ITS ---
Vital Signs 01/07/25 13:02 Height 5 ft 5 in Weight 160 lb BMI 26.6 Intake Visit Reasons: LBP Intake Note: Mr. Moss is here today c/o Low back pain. 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 She reports this has been ongoing for about 1 month after moving some heavy boxes between storage units. She does report a history of previous back issues treated by Dr. Goodwin before he retired. She states that the last time she had a significant flare-up of her back pain back in 2016 she had an epidural injection by Dr. Goodwin that sounds like it was able to manage her symptoms up until recently. When describing her pain she states that it starts in her low back shoots into her right posterior buttocks, and then terminates about senior care down her right lateral thigh. She does report some numbness/tingling that will accompany the pain with severe flare-ups. She states that increased physical activity such as house chores and grocery shopping exacerbate her pain up to about a 7/10. She is able to mitigate her symptoms fairly well by resting or sitting down. In addition to rest, she states that she utilizes Tylenol, tramadol, and gabapentin to help control her pain during flare ups. She has been doing physical therapy exercises at home and has been to physical therapy multiple times in the past for this issue. She reports that she has an upcoming appointment with our colleagues in pain management this coming Tuesday. PMH: Hypertension, osteoarthritis. Right shoulder surgery March 2024. Social hx: The patient does not smoke, reports no substance use. Medications: Tylenol, amlodipine, diclofenac, and gabapentin. Allergies: Tramadol, Fruit. Physical exam: On examination the patient has full 5/5 strength of her upper and lower extremities. She does elicit pain to full strength testing of her lower extremities, however is able to do so without much issue. She ambulates well with a non spastic nonantalgic gait. She rises from a seated position without much difficulty, and gets up onto the examination table without issue. Her reflexes are 2+ intact diffusely. (-) bilateral straight leg raise. (-) Conti's. (-) clonus. 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 Mild instability / lithesis at L3-4, L4-5 which would be better evaluated with XR imaging. Radiology report states this is stable and unchanged from MRI done in 2016. Impression: Marylin is a pleasant 59-year-old female comes in today for evaluation of low back pain and shooting pain into her right lower extremity. I believe her pain is most likely result of the micro instability in her lumbar spine secondary to the mild instability seen at L3-4, L4-5. Given this, I do not believe that the mild instability we see on MRI imaging warrants surgical intervention for fixation of the segments. I believe the patient would be much better off being evaluated by our colleagues in pain management to see if they can identify what type of injection she previously had, and manage her conservatively for the time being. She was encouraged to make an appointment for follow up in the future if her symptoms significantly worsen or are not managed well conservatively. Thank you for allowing us to care for your patient. The total time spent with this visit with this patient was 45 minutes reviewing history, physical exam, MRI imaging review, and implementation of treatment plan or further diagnostic testing Bryan Giron MD,PhD [facility] Coding Level of Care Code New Pt Level 4 (20326) Diagnoses Lumbago of lumbar region with sciatica M54.40
[2025-01-07 13:02] VITALS: BMI 26.6
--- OUTSIDE RECORDS SUMMARY | 2025-01-07 14:44 | XMS_ITS | Data Portability ---
Author Organization [facility], Main Office Address [address] [facility] [address] [place] [address] Care Team Providers Care Railway Yard Assistant Name Role Phone RICH FRITZ Seat Installer LESTER RIOS Orthopedic Surgeon WALTER MACHADO Urologist FAIZAN RAYO Orthopedic Surgeon ESTEFANÍA NERI Primary Care Provider SAMI GRIMALDO Orthopedic Surgeon GWEN KENNY Referring Provider [phone] Assessment Encounter Date Assessment Date Assessment LastModified by Organization Details LastModified Time 12/05/2023 12/05/2023 Discussed with patient the signs/symptom s warranted for a return to office visit and/or an ER visit. Patient understood and agreed with the plan. Not available 12/05/2023 11:53:16 12/17/2024 12/17/2024 Discussed with patient the signs/symptom s warranted for a return to office visit and/or an ER visit. Patient understood and agreed with the plan. Not available 12/17/2024 11:43:12 Plan of Treatment Reminders Order Date Submit Date Provider Last Modified By Organization Details Last Modified Time Details Appointments FOLL OW UP 2024 02:45P Chino NERI MD Not available Not available Not available Lab cult ure, urin e 2024 025 ABRIL [facility] (Centralized Electronic Ordering - All Locations), Patient Can Go To The Location Of Their Choice, [id number] 12/18/2024 16:06:56 urin dejah is comp lete , refl ex cult ure 2024 025 ABRIL [facility], [address], [place], [address], 06/28/2024 12:07:13 lipi d lissette l, seru m 2023 024 ABIRL [facility], [address], [place], [address], 06/26/2024 10:07:48 CBC w/ auto diff 2023 024 ABRIL [facility], [address], [place], [address], 06/26/2024 10:07:44 BMP, seru m or plas ma 2023 024 ABRIL [facility], [address], [place], [address], 06/26/2024 10:07:46 TSH, ultr a-se nsit chioma, seru m 2023 024 ABRIL [facility], [address], [place], [address], 06/26/2024 10:07:50 HIV 1 + 2, mean ingf ul use set 2023 024 [facility]), Patient Can Go To The Location Of Their Choice, [id number] 06/26/2024 10:07:49 Referral pain honey geme nt refe rral - >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 Most rece ntly had a flar e up of wors enin g low back pain with bila pastor l scia mary . 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 Rece nt flar e up trig gere d by lift ing heav y boxe s. was gett ing inje ctio ns year s ago and advi sed surg enma back in 2016 , decl ined then . Pt look ing to see spec iali st for surg ical cons ult. 2024 025 [email or web address] [facility], [address], [place], [address], 12/17/2024 12:45:09 orth oped ic surg travis refe rral 2024 025 [email or web address] Kali Meredith MD, [address] [facility], [address], [place], [address], 10/23/2024 15:48:13 orth oped ic surg travis refe rral 2024 025 [email or web address] Kenny MD, [address], [address], [place], [address], 10/17/2024 08:45:34 orth oped ic surg travis refe rral - plea se prin t for cheyanne ent 2024 025 [email or web address] [facility], [address], [address], [place], [address], 06/25/2024 10:34:03 phys ical ther apis t refe rral 2024 025 [email or web address] Not available 06/22/2024 14:14:46 gyne colo gist refe rral 2023 024 [email or web address] Not available 08/22/2024 10:40:19 phys ical ther apis t refe rral - DX: Righ t shou lder pain , ? RTC stra in/t ear eval & any t 2-3x /wk x 4 wks 2023 024 [email or web address] [facility] , [address] [place] [address] , [address], [place], [address], 06/04/2024 09:27:31 orth oped ic surg travis refe rral - hx of melissa re arth riti s. saw [facility] 09/27 3 for same cc. 2023 024 [email or web address] [facility] ([facility]), [address] [place], [address], 01/13/2024 10:32:31 Procedures colo nosc opy scre enin g (PRO C) 2023 024 [email or web address] [facility], [address] [place], [address], 08/27/2024 10:50:04 Surgeries None apple rded . 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 last a MRI in 2015 . note of any wors enin g disc abno rmal itie s. 2024 025 [facility] ([facility]), [address], [place], [address], 12/18/2024 15:08:46 XR, shou lder , 2 or more view - left side 2024 025 ABRIL Not available 10/16/2024 17:03:53 XR, elbo w, 3 or more view - left 2024 025 ABRIL Not available 10/17/2024 18:15:58 XR, cerv ical spin e, 2 or 3 view 2024 025 [email or web address] Not available 11/01/2024 12:53:35 XR, shou lder , 2 or more view - righ t shou lder pain 2023 024 [facility], [address] [place], [address], 12/05/2023 12:52:08 MRI, radhau lder , w/o cont rast - righ t suzi cisneroser . hx of arth riti s. xray reve aled Lar ge bony exos tosi s vers us loos e body in the axil allan port ion of the shou lder 2023 024 [email or web address] [facility], [address] [place], [address], 12/20/2023 08:38:36 Medication Orders taryn pent in 300 mg caps ule 2024 025 [id number], [address] [place], [address], 12/17/2024 14:04:18 dicl ofen ac sodi um 75 mg tabl et,d elay ed rele ase 2024 025 [facility], [address] [place], [address], 10/16/2024 15:56:09 taryn pent in 300 mg caps ule 2024 025 [facility], [address] [place], [address], 10/16/2024 15:56:10 amlo dipi ne 5 mg tabl et 2024 025 [facility], [address] [place], [address], 10/16/2024 15:56:09 dicl ofen ac sodi um 75 mg tabl et,d elay ed rele ase 2024 025 [facility], [address] [place], [address], 10/16/2024 15:33:10 new xica m 7.5 mg tabl et 2023 024 [id number], [address] [facility], [place], [address], 06/22/2024 13:46:10 Patient TargetsNo targets recorded. Patient Instructions Encounter Date Encounter Id Patient Instructions Last Modified By Organization Details Last Modified Time 12/05/2023 [id number] shoulder pain: care instructions Not available 12/05/2023 11:58:51 A healthy lifestyle: care instructions Not available 12/05/2023 11:58:51 rotator cuff injury: care instructions Not available 12/05/2023 11:58:51 rotator cuff: exercises Not available 12/05/2023 11:58:51 shoulder stretches: exercises Not available 12/05/2023 11:58:51 02/24/2024 [id number] bipolar disorder : care instructions Not available 02/24/2024 11:27:13 learning about mood disorders Not available 02/24/2024 11:27:14 HIV testing: car e instructions Not available 02/24/2024 11:27:13 06/22/2024 [id number] bipolar disorder : care instructions Not available 06/22/2024 13:48:51 learning about mood disorders Not available 06/22/2024 13:48:51 10/16/2024 [id number] high blood pressure: care instructions Not available 10/16/2024 15:56:06 learning about high blood pressure Not available 10/16/2024 15:56:06 12/17/2024 [id number] painful urinatio n (dysuria): care instructions Not available 12/17/2024 11:39:21 Reason for Referral Physical Therapist Referral for Pain of right shoulder joint DX: Right shoulder pain, ? RTC strain/tear eval & treat 2-3x/wk x 4 wks Referring Physician: Tiki Bond, Family Medicine, Encounter Date: 12/05/2023 Orthopedic Surgeon Referral for Pain of right shoulder joint hx of severe arthritis. saw [facility] 09/27/2022 for same cc. 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 Referring Physician: Estefanía Neri [facility] Blayne, Encounter Date: 02/24/2024 Orthopedic Surgeon Referral for Pain of knee region please print for patient Referring Physician: Family Blayne Sewell, Encounter Date: 06/22/2024 Physical Therapist Referral for Pain of knee region Referring Physician: Estefanía Neri [facility] Blayne, Encounter Date: 06/22/2024 Orthopedic Surgeon Referral for Pain of knee region Referring Physician: Estefanía Neri [facility] Blayne, Encounter Date: 10/16/2024 Orthopedic Surgeon Referral for Pain of elbow region Referring Physician: Estefanía Neri [facility] Blayne, Encounter Date: 10/16/2024 Pain Management Referral for Chronic low back pain >10years of chronic back pain. Most recently had a flare up of worsening low back pain with bilateral sciatica. Referring Physician: Family Blayne Montelongo, Encounter Date: 12/17/2024 Orthopedic Spine Surgeon Ref erral for Chronic low back pain chronic low back pain x10 years. Recent flare up triggered by lifting heavy boxes. was getting injections years ago and advised surgery back in 2015, declined then. Pt looking to see specialist for surgical consult. Referring Physician: Tiki Bond [facility] Blayne, Encounter Date: 12/17/2024 Results Created Date Observation Date Name Description Value Unit Range Abnormal Flag Note LastModifiedBy Organization Detail LastModifiedTime 06/26/1906/25/2024 CBC WITH DIFFE RENTI AL/PL ATELE T WBC 7.4 x10e3 /uL 3.4-10 .8 normal Not Available [facility] ([facility]) [address] [facility], [place], [address], 06/26/2024 10:07:44 06/26/1906/25/2024 CBC WITH DIFFE RENTI AL/PL ATELE T RBC 4.51 x10e6 /uL 3.77-5 .28 normal Not Available [facility] ([facility]) [address] [place], [address], 06/26/2024 10:07:44 06/26/19 25 06/25/2024 CBC WITH DIFFE RENTI AL/PL ATELE T hemoglobin 14.3 g/dL 11.1-1 5.9 normal Not Available [facility] ([facility]) [address] [place], [address], 06/26/2024 10:07:44 06/26/1906/25/2024 CBC WITH DIFFE RENTI AL/PL ATELE T hematocrit 42.8 % 34.0-4 6.6 normal Not Available [facility] ([facility]) [address] [place], [address], 06/26/2024 10:07:44 06/26/19 25 06/25/2024 CBC WITH DIFFE RENTI AL/PL ATELE T MCV 95 fL 79-97 normal Not Available [facility] ([facility]) [address] [place], [address], 06/26/2024 10:07:44 06/26/19 25 06/25/2024 CBC WITH DIFFE RENTI AL/PL ATELE T MCH 31.7 pg 26.6-3 3.0 normal Not Available [facility] ([facility]) [address] [place], [address], 06/26/2024 10:07:44 06/26/19 25 06/25/2024 CBC WITH DIFFE RENTI AL/PL ATELE T MCHC 33.4 g/dL 31.5-3 5.7 normal Not Available [facility] ([facility]) [address] [place], [address], 06/26/2024 10:07:44 06/26/19 25 06/25/2024 CBC WITH DIFFE RENTI AL/PL ATELE T RDW 12.0 % 11.7-1 5.4 Not Available [facility] ([facility]) [address] [facility], [place], [address], 06/26/2024 10:07:44 06/26/19 25 06/25/2024 CBC WITH DIFFE RENTI AL/PL ATELE T platelets 292 x10e3 /uL 150-45 0 normal Not Available [facility] ([facility]) [address] [facility], [place], [address], 06/26/2024 10:07:44 06/26/19 25 06/25/2024 CBC WITH DIFFE RENTI AL/PL ATELE T neutrophils 56 % not estab. normal Not Available [facility] ([facility]) [address] [facility], [place], [address], 06/26/2024 10:07:44 06/26/19 25 06/25/2024 CBC WITH DIFFE RENTI AL/PL ATELE T lymphs 32 % not estab. normal Not Available [facility] ([facility]) [address] [facility], [place], [address], 06/26/2024 10:07:44 06/26/19 25 06/25/2024 CBC WITH DIFFE RENTI AL/PL ATELE T monocytes 9 % not estab. normal Not Available [facility] ([facility]) [address] [facility], [place], [address], 06/26/2024 10:07:44 06/26/19 25 06/25/2024 CBC WITH DIFFE RENTI AL/PL ATELE T eos 2 % not estab. normal Not Available [facility] ([facility]) [address] [facility], [place], [address], 06/26/2024 10:07:44 06/26/19 25 06/25/2024 CBC WITH DIFFE RENTI AL/PL ATELE T basos 1 % not estab. normal Not Available [facility] ([facility]) [address] [place], [address], 06/26/2024 10:07:44 06/26/19 25 06/25/2024 CBC WITH DIFFE RENTI AL/PL ATELE T immature cells LACEMAKER Not Available [facility] ([facility]) [address] [facility], [place], [address], 06/26/2024 10:07:44 06/26/19 25 06/25/2024 CBC WITH DIFFE RENTI AL/PL ATELE T neutrophils (absolute) 4.2 x10e3 /uL 1.4-7. 0 normal Not Available [facility] ([facility]) [address] [facility], [place], [address], 06/26/2024 10:07:44 06/26/19 25 06/25/2024 CBC WITH DIFFE RENTI AL/PL ATELE T lymphs (absolute) 2.3 x10e3 /uL 0.7-3. 1 normal Not Available [facility] ([facility]) [address] [place], [address], 06/26/2024 10:07:44 06/26/19 25 06/25/2024 CBC WITH DIFFE RENTI AL/PL ATELE T monocytes(ab solute) 0.7 x10e3 /uL 0.1-0. 9 normal Not Available [facility] ([facility]) [address] [place], [address], 06/26/2024 10:07:44 06/26/19 25 06/25/2024 CBC WITH DIFFE RENTI AL/PL ATELE T eos (absolute) 0.1 x10e3 /uL 0.0-0. 4 normal Not Available [facility] ([facility]) [address] [place], [address], 06/26/2024 10:07:44 06/26/19 25 06/25/2024 CBC WITH DIFFE RENTI AL/PL ATELE T baso (absolute) 0.1 x10e3 /uL 0.0-0. 2 normal Not Available [facility] ([facility]) [address] [place], [address], 06/26/2024 10:07:44 06/26/19 25 06/25/2024 CBC WITH DIFFE RENTI AL/PL ATELE T immature granulocytes 0 % not estab. Not Available [facility] ([facility]) [address] [facility], [place], [address], 06/26/2024 10:07:44 06/26/19 25 06/25/2024 CBC WITH DIFFE RENTI AL/PL ATELE T immature grans (abs) 0.0 x10e3 /uL 0.0-0. 1 Not Available [facility] ([facility]) [address] [place], [address], 06/26/2024 10:07:44 06/26/19 25 06/25/2024 CBC WITH DIFFE RENTI AL/PL ATELE T NRBC LACEMAKER Not Available [facility] ([facility]) [address] [place], [address], 06/26/2024 10:07:44 06/26/19 25 06/25/2024 CBC WITH DIFFE RENTI AL/PL ATELE T hematology comments: LACEMAKER Not Available [facility] ([facility]) [address] [place], [address], 06/26/2024 10:07:44 06/26/19 25 06/26/2024 BASIC METAB OLIC PANEL (8) glucose 88 mg/dL 70-99 normal Not Available [facility] ([facility]) [address] [place], [address], 06/26/2024 10:07:46 06/26/19 25 06/26/2024 BASIC METAB OLIC PANEL (8) BUN 18 mg/dL 6-24 normal Not Available [facility] ([facility]) [address] [place], [address], 06/26/2024 10:07:46 06/26/19 25 06/26/2024 BASIC METAB OLIC PANEL (8) creatinine 0.96 mg/dL 0.57-1 .00 normal Not Available [facility] ([facility]) [address] [place], [address], 06/26/2024 10:07:46 06/26/19 25 06/26/2024 BASIC METAB OLIC PANEL (8) eGFR 68 mL/mi n/1.7 3 >59 normal Not Available [facility] ([facility]) [address] [facility] [place], [address], 06/26/2024 10:07:46 06/26/19 25 06/26/2024 BASIC METAB OLIC PANEL (8) BUN/creatini ne ratio 19 9-23 normal Not Available [facility] ([facility]) [address] [facility] [place], [address], 06/26/2024 10:07:46 06/26/19 25 06/26/2024 BASIC METAB OLIC PANEL (8) sodium 139 mmol/ L 134-14 4 normal Not Available [facility] ([facility]) [address] [facility] [place], [address], 06/26/2024 10:07:46 06/26/19 25 06/26/2024 BASIC METAB OLIC PANEL (8) potassium 4.4 mmol/ L 3.5-5. 2 normal Not Available [facility] ([facility]) [address] [facility] [place], [address], 06/26/2024 10:07:46 06/26/19 25 06/26/2024 BASIC METAB OLIC PANEL (8) chloride 100 mmol/ L 96-106 normal Not Available [facility] ([facility]) [address] [facility] [place], [address], 06/26/2024 10:07:46 06/26/19 25 06/26/2024 BASIC METAB OLIC PANEL (8) carbon dioxide, total 20 mmol/ L 20-29 normal Not Available [facility] ([facility]) [address] [place], [address], 06/26/2024 10:07:46 06/26/19 25 06/26/2024 BASIC METAB OLIC PANEL (8) calcium 9.8 mg/dL 8.7-10 .2 normal Not Available [facility] ([facility]) [address] [place], [address], 06/26/2024 10:07:46 06/26/19 25 06/26/2024 LIPID PANEL cholesterol, total 261 mg/dL 100-19 9 above high normal Not Available [facility] ([facility]) [address] [place], [address], 06/26/2024 10:07:48 06/26/19 25 06/26/2024 LIPID PANEL triglyceride s 117 mg/dL 0-149 normal Not Available [facility] ([facility]) [address] [place], [address], 06/26/2024 10:07:48 06/26/19 25 06/26/2024 LIPID PANEL HDL cholesterol 69 mg/dL >39 normal Not Available [facility]) [address] [place], [address], 06/26/2024 10:07:48 06/26/19 25 06/26/2024 LIPID PANEL VLDL cholesterol ankur 20 mg/dL 5-40 Not Available [facility] ([facility]) [address] [place], [address], 06/26/2024 10:07:48 06/26/19 25 06/26/2024 LIPID PANEL LDL chol calc ([facility]) 172 mg/dL 0-99 above high normal Not Available [facility] ([facility]) [address] [place], [address], 06/26/2024 10:07:48 06/26/19 25 06/26/2024 LIPID PANEL LDL calc comment: LACEMAKER Not Available [facility] ([facility]) [address] [facility], [place], [address], 06/26/2024 10:07:48 06/26/19 25 06/26/2024 HIV AB/P2 4 AG WITH REFLE X HIV Ab/P24 Ag screen Non Reacti ve non reacti ve HIV-1 /HIV- 2 antib odies and HIV-1 p24 antig en were NOT detec michael. There is no labor atory evide nce of HIV infec tion. HIV Negat chioma Not Available [facility] ([facility]) [address] [place], [address], 06/26/2024 10:07:49 06/26/19 25 06/26/2024 TSH RFX ON ABNOR MAL TO FREE T4 TSH 2.120 uIU/m L 0.450- 4.500 normal Not Available [facility] ([facility]) [address] [place], [address], 06/26/2024 10:07:50 06/26/19 25 06/27/2024 QUANT IFERO N-TB GOLD PLUS quantiferon incubation Incuba tion perfor med. Not Available [facility] ([facility]) [address] [place], [address], 06/28/2024 08:12:07 06/26/19 25 06/27/2024 QUANT IFERO N-TB GOLD PLUS quantiferon criteria Commen t Quant iFERO N-TB Gold Plus is a quali tativ e indir ect test for M tuber culos is infec tion (incl uding disea se) and is inten ded for use in conju nctio n with risk asses sment , radio graph y, and other medic al and diagn ostic evalu ation s. The Quant iFERO N-TB Gold Plus resul t is deter mined by subtr actin g the Nil value from eithe r TB antig en (Ag) value . The Mitog en tube serve s as a contr ol for the test. Not Available [facility] ([facility]) [address] [place], [address], 06/28/2024 08:12:07 06/26/19 25 06/28/2024 QUANT IFERO N-TB GOLD PLUS quantiferon TB1 Ag value 0.06 IU/mL Not Available [facility]) [address] [place], [address], 06/28/2024 08:12:07 06/26/1906/28/2024 QUANT IFERO N-TB GOLD PLUS quantiferon TB2 Ag value 0.04 IU/mL Not Available [facility]) [address] [place], [address], 06/28/2024 08:12:07 06/26/19 25 06/28/2024 QUANT IFERO N-TB GOLD PLUS quantiferon nil value 0.03 IU/mL Not Available [facility] ([facility]) [address] [place], [address], 06/28/2024 08:12:07 06/26/19 25 06/28/2024 QUANT IFERO N-TB GOLD PLUS quantiferon mitogen value >10.00 IU/mL Not Available [facility] ([facility]) [address] [place], [address], 06/28/2024 08:12:07 06/26/19 25 06/28/2024 QUANT IFERO N-TB GOLD PLUS quantiferon- TB gold plus Negati ve negati ve No respo nse to M tuber culos is antig ens detec michael. Infec tion with M tuber culos is is unlik tamir, but high risk indiv idual s shoul d be consi dered for addit ional testi ng (ATS/ IDSA/ CDC Clini ankur Pract ice Guide lines , 2017) . The refer ence range is an Antig en minus Nil resul t of <0.35 IU/mL . Chemi lumin escen ce immun oassa y metho dolog y Not Available [facility] ([facility]) [address] [facility], [place], [address], 06/28/2024 08:12:07 06/26/19 25 06/25/2024 UA WITH CULTU RE REFLE X specific gravity 1.017 1.005- 1.030 normal Not Available [facility] ([facility]) [address] [facility], [place], [address], 06/28/2024 12:07:13 06/26/19 25 06/25/2024 UA WITH CULTU RE REFLE X pH 6.0 5.0-7. 5 normal Not Available [facility] ([facility]) [address] [facility], [place], [address], 06/28/2024 12:07:13 06/26/19 25 06/25/2024 UA WITH CULTU RE REFLE X urine-color Yellow yellow Not Available [facility] ([facility]) [address] [place], [address], 06/28/2024 12:07:13 06/26/19 25 06/25/2024 UA WITH CULTU RE REFLE X appearance Cloudy clear abnormal Not Available [facility] ([facility]) [address] [place], [address], 06/28/2024 12:07:13 06/26/19 25 06/25/2024 UA WITH CULTU RE REFLE X WBC esterase 3+ negati ve abnormal Not Available [facility] ([facility]) [address] [place], [address], 06/28/2024 12:07:13 06/26/19 25 06/25/2024 UA WITH CULTU RE REFLE X protein Trace negati ve/tra ce Not Available [facility] ([facility]) [address] [facility], [place], [address], 06/28/2024 12:07:13 06/26/19 25 06/25/2024 UA WITH CULTU RE REFLE X glucose Negati ve negati ve Not Available [facility] ([facility]) [address] [facility], [place], [address], 06/28/2024 12:07:13 06/26/19 25 06/25/2024 UA WITH CULTU RE REFLE X ketones Negati ve negati ve Not Available [facility] ([facility]) [address] [place], [address], 06/28/2024 12:07:13 06/26/19 25 06/25/2024 UA WITH CULTU RE REFLE X occult blood Trace negati ve abnormal Not Available [facility] ([facility]) [address] [place], [address], 06/28/2024 12:07:13 06/26/19 25 06/25/2024 UA WITH CULTU RE REFLE X bilirubin Negati ve negati ve Not Available [facility] ([facility]) [address] [place], [address], 06/28/2024 12:07:13 06/26/19 25 06/25/2024 UA WITH CULTU RE REFLE X urobilinogen ,semi-qn 0.2 mg/dL 0.2-1. 0 normal Not Available [facility] ([facility]) [address] [place], [address], 06/28/2024 12:07:13 06/26/19 25 06/25/2024 UA WITH CULTU RE REFLE X nitrite, urine Negati ve negati ve Not Available [facility] ([facility]) [address] [place], [address], 06/28/2024 12:07:13 06/26/19 25 06/25/2024 UA WITH CULTU RE REFLE X microscopic examination See below: Micro scopi c was indic ated and was perfo rmed. Not Available [facility] ([facility]) [address] [facility], [place], [address], 06/28/2024 12:07:13 06/26/19 25 06/26/2024 UA WITH CULTU RE REFLE X WBC >30 /hpf 0 - 5 abnormal Not Available [facility] ([facility]) [address] [facility], [place], [address], 06/28/2024 12:07:13 06/26/19 25 06/26/2024 UA WITH CULTU RE REFLE X RBC 0-2 /hpf 0 - 2 Not Available [facility] ([facility]) [address] [facility], [place], [address], 06/28/2024 12:07:13 06/26/19 25 06/26/2024 UA WITH CULTU RE REFLE X epithelial cells (non renal) None seen /hpf 0 - 10 Not Available [facility] ([facility]) [address] [facility], [place], [address], 06/28/2024 12:07:13 06/26/19 25 06/26/2024 UA WITH CULTU RE REFLE X epithelial cells (renal) LACEMAKER Not Available [facility] ([facility]) [address] [place], [address], 06/28/2024 12:07:13 06/26/19 25 06/26/2024 UA WITH CULTU RE REFLE X casts None seen /lpf none seen Not Available [facility] ([facility]) [address] [place], [address], 06/28/2024 12:07:13 06/26/19 25 06/26/2024 UA WITH CULTU RE REFLE X cast type LACEMAKER Not Available [facility] ([facility]) [address] [place], [address], 06/28/2024 12:07:13 06/26/19 25 06/26/2024 UA WITH CULTU RE REFLE X crystals LACEMAKER Not Available [facility] ([facility]) [address], [place], [address], 06/28/2024 12:07:13 06/26/19 25 06/26/2024 UA WITH CULTU RE REFLE X crystal type LACEMAKER Not Available [facility] ([facility]) [address], [place], [address], 06/28/2024 12:07:13 06/26/19 25 06/26/2024 UA WITH CULTU RE REFLE X mucus threads LACEMAKER Not Available [facility] ([facility]) [address], [place], [address], 06/28/2024 12:07:13 06/26/19 25 06/26/2024 UA WITH CULTU RE REFLE X bacteria None seen none seen/f ew Not Available [facility] ([facility]) [address], [place], [address], 06/28/2024 12:07:13 06/26/19 25 06/26/2024 UA WITH CULTU RE REFLE X yeast LACEMAKER Not Available [facility] ([facility]) [address], [place], [address], 06/28/2024 12:07:13 06/26/19 25 06/26/2024 UA WITH CULTU RE REFLE X trichomonas LACEMAKER Not Available [facility] ([facility]) [address], [place], [address], 06/28/2024 12:07:13 06/26/19 25 06/26/2024 UA WITH CULTU RE REFLE X comment LACEMAKER Not Available [facility] ([facility]) [address], [place], [address], 06/28/2024 12:07:13 06/26/19 25 06/26/2024 UA WITH CULTU RE REFLE X urinalysis reflex Commen t This speci men has refle xed to a Urine Cultu re. Not Available [facility] ([facility]) [address] [facility], [place], [address], 06/28/2024 12:07:13 06/26/19 25 06/28/2024 UA WITH CULTU RE REFLE X urine culture, routine Final report abnormal Not Available [facility] ([facility]) [address] [facility], [place], [address], 06/28/2024 12:07:13 06/26/19 25 06/28/2024 UA WITH CULTU RE REFLE X result 1 Escher ichia coli abnormal Cefaz chidi with an ANJUM <=16 predi cts susce ptibi lity to the oral agent s cefac verena, cefdi bubba, cefpo doxim e, cefpr ozil, cefur oxime , cepha lexin , and lorac arbef when used for thera py of uncom plica michael urina ry tract infec tions due to E. coli, Klebs iella pneum oniae , and Prote us mirab ilis. 10,00 0-25, 000 colon y formi ng units per mL Not Available [facility] ([facility]) [address] [facility], [place], [address], 06/28/2024 12:07:13 06/26/19 25 06/28/2024 UA WITH CULTU RE REFLE X antimicrobia l susceptibili ty Commen t S = Susce ptibl e; I = Inter media te; R = Resis tant P = Posit chioma; N = Negat chioma MICS are expre ssed in micro grams per mL Antib iotic RSLT# 1 RSLT# 2 RSLT# 3 RSLT# 4 Amoxi cilli n/Cla vulan ic Acid S Ampic illin S Cefaz chidi S Cefep tori S Cefox itin S Cefpo doxim e S Ceftr iaxon e S Cipro floxa julia S Ertap enem S Genta micin S Levof loxac in S Merop enem S Nitro furan toin S Piper acill in/Ta zobac baldwin S Tetra cycli ne S Tobra mycin S Trime thopr im/Grover lfa S Not Available [facility] ([facility]) [address] [facility], [place], [address], 06/28/2024 12:07:13 12/18/19 25 12/18/2024 URINE CULTU RE, ROUTI NE urine culture, routine Final report Not Available [facility] ([facility]) [address] [facility], [place], [address], 12/18/2024 16:06:56 12/18/19 25 12/18/2024 URINE CULTU RE, ROUTI NE result 1 COMMEN T Cultu re shows less than 10,00 0 colon y formi ng units of bacte zoya per rock liter of urine . This colon y count is not gener ally consi dered to be clini aracelis signi fican t. Not Available [facility] ([facility]) [address] [facility], [place], [address], 12/18/2024 16:06:56 12/02/19 24 12/02/2023 MAMMO , scree qi, digit al, bilat eral PROCED URE: MM Digita l Mammo Screen ing INDICA TION: Screen ing for breast cancer . No known palpab le abnorm alitie s. COMPAR MARGOTH: Prior mammog sai most recent ly dated 022. TECHNI QUE: Full-f ield digita l CC and MLO 3D tomosy nthesi s images of both breast s were acquir ed. Comput er-aid ed detect ion (CAD) was utiliz ed in the interp retati on of this study. DENSIT Y: The breast tissue is hetero geneou sly dense, which may obscur e small masses . FINDIN GS: No suspic ious masses , suspic ious microc alcifi cation s, or areas of keshawn ectura l distor tion are seen in either breast to sugges t malign amilcar. IMPRES LUDIN: No mammog raphic eviden ce of malign amilcar. RECOMM ENDATI ON: Annual mammog raphic screen ing BI-RAD S: 1 (Negat chioma) Lay letter mailed to kay guillen WSN: [id number] Orderi ng Physic benoit: Willy ta, Taiwo ie Dictat ed By: Bee Zuleta MD Dictat ed Date/T tori: 4:00 pm Review ed By: Bee Zuleta MD Signed By: Bee Zuleta MD Signed Date/T tori: 4:00 pm Transc ribed By: CSB Transc riptio n Date/T tori: 3:59 pm Birads : Kay guillen Class: Outpat ient [email or web address] [facility] (Outpt Imaging) [address], [place], [address], 12/05/2023 09:40:09 12/02/19 24 12/02/2023 MAMMO , scree qi, digit al, bilat eral No observ ation record ed. [facility] [address], [place], [address], 12/02/2023 18:21:45 12/05/19 24 12/05/2023 XR, shoul shannon, 2 or more view Right should er, 2 views Reason : pain. No trauma . COMPAR MARGOTH: None. FINDIN GS: No fractu re or disloc ation. There is a large focus of ossifi cation in the axilla ry portio n of the should er joint that could be a loose body or may be contig uous with the medial humeru s. Normal AC joint and portio ns of the clavic le includ ed on the exam. No calcif icatio n of the rotato r cuff. IMPRES LUDIN: Large bony exosto sis versus loose body in the axilla ry portio n of the should er. Recomm end CT or MRI for furthe r invest igatio n. An action able mandie ware (Claude w) has been commun icated via the [employer] system on 024 12:48 PM, Mandie ware ID [id number]. WSN: [id number] Orderi ng Physic benoit: Tiki Bond Y Dictat ed By: Donell gunn MD, Narayan pineda Dictat ed Date/T tori: 12:48 p Review ed By: Donell gunn MD, Narayan pineda Signed By: Donell gunn MD, Narayan pineda Signed Date/T tori: 12:48 pm Transc ribed By: BERNARDO Transc ribed Date/T tori: 12:47 pm Patien t Class: Outpat ient [facility] (Outpt Imaging) [address] [place], [address], 12/05/2023 15:20:09 12/05/19 24 12/05/2023 XR, shoul shannon, 2 or more view No observ ation record ed. [email or web address] [facility] [address] [place], [address], 12/06/2023 08:35:55 12/27/19 24 12/25/2023 MRI, shoul shannon, w/o contr ast No observ ation record ed. ABRIL Quiles [address] [facility], [place], [address], 12/29/2023 20:33:10 10/17/19 25 10/16/2024 XR, shoul shannon, 2 or more view Left should er, 3 views Reason : acute pain of left should er COMPAR MARGOTH: None. FINDIN GS: No fractu re or disloc ation. Mild glenoh umeral joint space narrow ing and margin al spurri ng. Modera te degene rative change s of the AC joint. The portio n of the clavic le includ ed on the exam is intact . No calcif icatio n of the rotato r cuff. IMPRES LUDIN: Modera te degene rative change s left should er withou t acute fractu re or disloc ation seen. WSN: [id number] Orderi ng Physic benoit: Taiwo Santoyo ie Dictat ed By: Dar Gil MD, V Dictat ed Date/T tori: 5:00 pm Review ed By: Dar Gil MD, V Signed By: Dar Gil MD, V Signed Date/T tori: 5:00 pm Transc ribed By: DICKB Transc ribed Date/T tori: 5:00 pm Patien t Class: Outpat ient [facility] (Outpt Imaging) [address] [place], [address], 10/18/2024 10:26:00 10/18/19 25 10/16/2024 XR, elbow , 3 or more view Elbow Min 3 Views Left, 3 views Reason : pain in left elbow COMPAR MARGOTH: None. FINDIN GS: There is no eviden ce of acute fractu re or disloc ation. Mild osteoa rthrit ic change s with spurri ng. No joint effusi on. IMPRES LUDIN: Mild osteoa rthrit ic change s withou t eviden ce of acute fractu re or disloc ation. WSN: [id number] Orderi ng Physic benoit: Taiwo Santoyo Dictat ed By: Bee Zuleta MD Dictat ed Date/T tori: 6:12 pm Review ed By: Bee Zuleta MD Signed By: Bee Zuleta MD Signed Date/T tori: 6:12 pm Transc ribed By: BERNARDO Transc ribed Date/T tori: 6:11 pm Patien t Class: Outpat ient [facility] (Outpt Imaging) [address] [place], [address], 10/18/2024 10:26:01 10/19/19 25 10/16/2024 XR, cervi ankur spine Cervic al Spine 3 Views or Less Reason : numbne ss and tingli ng of upper extrem ity COMPAR MARGOTH: None. FINDIN GS: No bone lesion s or fractu res. Normal odonto id and C1/2 relati onship . Normal alignm ent with mild disc space narrow ing and margin al osteop hyte format ion at C5-C6, perhap s some mild disc space narrow ing at C6-C7. Sexual Assault Counsellor ior elemen ts are intact and align satisf actori ly. Normal prever tebral soft tissue s and clear lung apices . IMPRES LUDIN: No acute findin gs. Mild cervic al spondy losis C5-C6. WSN: [id number] Orderi ng Physic benoit: Taiwo Santoyo Dictat ed By: Vijaya pineda MD, Loan Boogie Dictat ed Date/T tori: 9:53 am Review ed By: Vijaya pineda MD, Loan Boogie Signed By: Loan Parkinson MD Signed Date/T tori: 9:53 am Transc ribed By: BERNARDO Transc ribed Date/T tori: 9:50 am Patieh t Class: Outpat [facility] (Outpt Imaging) [address] [facility], [place], [address], 10/18/2024 11:37:16 11/17/19 25 11/16/2024 XR, elbow , 3 or more view See Note [facility] , a member of [employer] [facility] Patien t Name: ROSALIE MOSS Date of : 1964 Reason for Exam: LT ELBOW PAIN Exam Date: 2024 [id number] EST Report Status : Final Orderi ng Provid er: HIPOLITO KENNY PCP: TAIWO BELTRAN AP, latera l, obliqu e of the left elbow was obtain ed on 025. There is some medial joint space narrow ing just starti ng consis tent with early arthri tis but otherw ise the joint space is mainta ined. There is some peakin g of the olecra non tip as well as the corono id all consis tent with early arthri tis. Joint spaces mainta ined. No obviou s fractu res or lytic lesion s. [facility] [address] [place], [address], 11/18/2024 07:03:05 12/31/19 25 12/28/2024 MRI, lumba r spine , w/o contr ast No observ ation record ed. [facility] [place] [address] [place], [address], 12/30/2024 20:00:41 Result Notes Documentation Provider Name and Address Organization Details Recorded Time Xr, Shoulder, 2 Or More View : Right shoulder, 2 views Reason: pain. No trauma. COMPARISON: None. FINDINGS: No fracture or dislocation. There is a large focus of ossification in the axillary portion of the shoulder joint that could be a loose body or may be contiguous with the medial humerus. Normal AC joint and portions of the clavicle included on the exam. No calcification of the rotator cuff. IMPRESSION: Large bony exostosis versus loose body in the axillary portion of the shoulder. Recommend CT or MRI for further investigation. An actionable message (Yellow) has been communicated via the [employer] system on 12/05/2023 12:48 PM, Message ID [id number]. WSN: [id number] Ordering Physician: Tiki Bond Dictated By: Jt Martin MD Dictated Date/Time: 12/05/23 12:48 p Reviewed By: Jt Martin MD Signed By: Jt Martin MD Signed Date/Time: 12/05/23 12:48 pm Transcribed By: BERNARDO Transcribed Date/Time: 12/05/23 12:47 pm Patient Class: Outpatient DANIEL MONTELONGO [address] [facility] [address], [place], [address], [facility] 12/05/2023 15:20:09 Xr, Shoulder, 2 Or More View : Left shoulder, 3 views Reason: acute pain of left shoulder COMPARISON: None. FINDINGS: No fracture or dislocation. Mild glenohumeral joint space narrowing and marginal spurring. Moderate degenerative changes of the AC joint. The portion of the clavicle included on the exam is intact. No calcification of the rotator cuff. IMPRESSION: Moderate degenerative changes left shoulder without acute fracture or dislocation seen. WSN: [id number] Ordering Physician: Estefanía Neri Dictated By: Dar Ryan MD, V Dictated Date/Time: 10/16/24 5:00 pm Reviewed By: Dar Ryan MD, V Signed By: Dar Ryan MD, V Signed Date/Time: 10/16/24 5:00 pm Transcribed By: BERNARDO Transcribed Date/Time: 10/16/24 5:00 pm Patient Class: Outpatient ESTEFANÍA NERI MD [address], [address], [facility] 10/17/2024 19:19:39 Xr, Elbow, 3 Or More View : Elbow Min 3 Views Left, 3 views Reason: pain in left elbow COMPARISON: None. FINDINGS: There is no evidence of acute fracture or dislocation. Mild osteoarthritic changes with spurring. No joint effusion. IMPRESSION: Mild osteoarthritic changes without evidence of acute fracture or dislocation. WSN: [id number] Ordering Physician: Estefanía Neri Dictated By: Mildred Zuleta MD Dictated Date/Time: 10/17/24 6:12 pm Reviewed By: Mildred Zuleta MD Signed By: Mildred Zuleta MD Signed Date/Time: 10/17/24 6:12 pm Transcribed By: BERNARDO Transcribed Date/Time: 10/17/24 6:11 pm Patient Class: Outpatient ESTEFANÍA NERI MD [address], [address], [facility] 10/17/2024 19:20:09 Xr, Cervical Spine : Cervical Spine 3 Views or Less Reason: numbness and tingling of upper extremity COMPARISON: None. FINDINGS: No bone lesions or fractures. Normal odontoid and C1/2 relationship. Normal alignment with mild disc space narrowing and marginal osteophyte formation at C5-C6, perhaps some mild disc space narrowing at C6-C7. Posterior elements are intact and align satisfactorily. Normal prevertebral soft tissues and clear lung apices. IMPRESSION: No acute findings. Mild cervical spondylosis C5-C6. WSN: [id number] Ordering Physician: Estefanía Neri Dictated By: Juan Huang MD Dictated Date/Time: 10/18/24 9:53 am Reviewed By: Juan Huang MD Signed By: Juan Huang MD Signed Date/Time: 10/18/24 9:53 am Transcribed By: BERNARDO Transcribed Date/Time: 10/18/24 9:50 am Patient Class: Outpatient ESTEFANÍA NERI MD [address] [address], [place], [address], [facility] 10/18/2024 10:53:50 Xr, Elbow, 3 Or More View : See Note [facility], a member of [facility] Patient Name: JEAN MOSS Date of : 1965 Reason for Exam: LT ELBOW PAIN Exam Date: 11/16/2024 [id number] EST Report Status: Final Ordering Provider: GWEN KENNY PCP: ESTEFANÍA NERI AP, lateral, oblique of the left elbow was obtained on 11/16/2024. There is some medial joint space narrowing just starting consistent with early arthritis but otherwise the joint space is maintained. There is some peaking of the olecranon tip as well as the coronoid all consistent with early arthritis. Joint spaces maintained. No obvious fractures or lytic lesions. ESTEFANÍA NERI MD [address] [address], [place], [address], [facility] 11/18/2024 07:03:05 Problems Name Problem SNOMED Code Status Onset Date Resolution Date Notes Provider Name and Address Organization Details Recorded Time Sacroili ac disorder 502560713 Completed 07/16/2016 Juanita adhikari [facility] 7 13:52:57 Neoplasm of uncertai n behavior of skin 02538582 Completed 07/16/2016 Juanita adhikari [facility] 7 13:52:54 Elevated blood-pr essure reading without diagnosi s of hyperten ludin 112249135 Completed 07/16/2016 Juanita adhikari [facility] 7 13:52:29 Neck pain 18569780 Completed 07/16/2016 Juanita Costa-Sridhar adhikari [facility] 7 13:52:48 Cervical radiculo gume 71794651 Completed 07/16/2016 Juanita Costa-Sridhar mcraenrahul adhikari [facility] 7 13:52:42 Fatigue 28829464 Completed 07/16/2016 Juanita mcraenrahul adhikari [facility] 7 13:52:51 Lumbar sprain 492886771 Completed 07/16/2016 Juanita dahikari [facility] 7 13:51:58 Lumbago with sciatica 192993288 Completed 07/16/2016 ESTEFANÍA NERI MD [address] [address], [place], [address] [place] [address] 4 11:20:35 Arthropa thy of lumbar facet joint 360655581 Completed 07/16/2016 Juanita Costa-Sridhar mcraenrahul adhikari [facility] 7 13:52:33 Degenera tion of lumbar interver tebral disc 05387357 Completed 07/16/2016 Juanita Costa-Sridhar mcraenrahul adhikari [facility] 7 13:52:22 Neoplasm of liver 635665123 Completed 07/16/2016 Juanita Costa-Sridhar centenoorenrahul adhikari [facility] 7 13:53:05 Dysuria 66769861 Completed 07/16/2016 Juanita Costa-Sridhar mcraenrahul adhikari [facility] 7 13:52:40 Chest discomfo rt 637977518 Completed 07/16/2016 Juanita Costa-Sridhar centenoorenrahul adhikari [facility] 7 13:52:19 Abdomina l pain 11669396 Completed 07/16/2016 Juanita Costa-D ilorenzo null, [facility] 7 13:51:55 Hydronep hrosis 66701004 Completed 07/16/2016 Juanita Costa-Sridhar centenoorenzo null, [facility] 7 13:52:35 Impacted cerumen 69218841 Completed 07/16/2016 Juanita Costa-D tarynorenzo null, [facility] 7 13:53:09 Ultrasou nd scan abnormal 951007994 Completed 07/16/2016 Juanita Costa-D tarynorenzo null, [facility] 7 13:51:52 Acute cervical sprain 054210104 Completed 07/16/2016 Juanita Costa-D tarynorenzo null, [facility] 7 13:52:37 Low back pain 332969044 Completed 07/16/2016 Juanita Costa-Sridhar centenoorenzo null, [facility] 7 13:52:10 Bipolar disorder 82655484 Active Juanitadolores Costa-D tarynorenzo null, [facility] 6 17:29:06 Knee pain Completed 07/16/2016 Juanita Costa-D ilorenzo null, [facility] 7 13:52:17 Lumbosac ral radiculo gume 4624735 Completed 07/16/2016 Juanita Costa-D ilorenzo null, [facility] 7 13:52:02 Screenin g for malignan t neoplasm of breast Completed 201009/11/2013 RECORDED 08/29/19 11 2:23PM BY PETRONA COX, OFFICE VISIT Cindy Stanley PA-C [address] [address], [place], [address] [place] [address] 6 12:49:54 Screenin g for malignan t neoplasm of breast Completed 201010/04/2013 RECORDED 08/29/19 11 2:23PM BY PETRONA COX, OFFICE VISIT Cindy Getable-C [address], [facility] [place], [address], [facility] 6 12:49:54 Screenin g for malignan t neoplasm of breast Completed 201010/05/2013 RECORDED 08/29/19 11 2:23PM BY PETRONA COX, OFFICE VISIT Cindy Stanley MN-C [address], [facility] [place], [address], [facility] 6 12:49:54 Screenin g for malignan t neoplasm of colon Completed 201109/11/2013 RECORDED 11/15/19 12 9:48AM BY SARAH GUSTAFSON ON/ADDEN DUM Cindy Blaze.ioC [address], [place], [address], [facility] 6 12:49:54 Low back pain 992790711 Completed 201109/11/2013 IMPRESSI ON: BETTER BUT STILL BOTHERSO ME, PT TO USE MEDS, HEAT SEE PSSP; RECORDED 11/15/19 12 9:48AM BY SARAH GUSTAFSON ON/ADDEN DUM [facility] 7 13:52:10 Nausea [id number] Completed 201109/11/2013 RECORDED 11/15/19 12 9:48AM BY SARAH GUSTAFSON ON/ADDEN DUM Cindy Blaze.ioC [address], [facility] [place], [address], [facility] 6 12:49:54 Enthesop athy [id number] Completed 201109/11/2013 IMPRESSI ON: LEFT ELBOW, ICE HAD RECENT INJECITO N; RECORDED 11/15/19 12 9:48AM BY SARAH GUSTAFSON ON/ADDEN DUM Cindy Stanley MNA [facility] Sleep[facility] [address], [place], [address], [facility] 6 12:49:54 Epidemic vertigo 077348387 Completed 201109/11/2013 IMPRESSI ON: MOST LIKELY CAUSE OF HER DIZZINES S GIVEN THAT SHE HAS A VIRAL URI RIGHT NOW. IF THIS PERSISTS I WOULD CONSIDER CERVICAL DIZZINES S CAUSE WITH HER RECENT NECK ISSUES.; RECORDED 11/15/19 12 9:48AM BY SARAH GUSTAFSON ON/ADDEN DUM Cindy Stanley PA-C [address], [place], [address], [facility] 6 12:49:54 Screenin g for malignan t neoplasm of colon Completed 201110/04/2013 RECORDED 11/15/19 12 9:48AM BY SAARH GUSTAFSON ON/ADDEN DUM Cindy Stanley PA-C [address], [place], [address], [facility] 6 12:49:54 Low back pain 855411085 Completed 201110/04/2013 IMPRESSI ON: BETTER BUT STILL BOTHERSO ME, PT TO USE MEDS, HEAT SEE PSSP; RECORDED 11/15/19 12 9:48AM BY SARAH GUSTAFSON ON/ADDEN DUM [facility] 7 13:52:10 Nausea [id number] Completed 201110/04/2013 RECORDED 11/15/19 12 9:48AM BY KWAN GUSTAFSONATI ON/ADDEN DUM Cindy Stanley PA-C [address], [place], [address], [facility] 6 12:49:54 Enthesop athy [id number] Completed 201110/04/2013 IMPRESSI ON: LEFT ELBOW, ICE HAD RECENT INJECITO N; RECORDED 11/15/19 12 9:48AM BY SARAH GUSTAFSON ON/ADDEN DUM Cindy [employer] PA-C [address], [place], [address], [facility] 6 12:49:54 Epidemic vertigo 428715758 Completed 201110/04/2013 IMPRESSI ON: MOST LIKELY CAUSE OF HER DIZZINES S GIVEN THAT SHE HAS A VIRAL URI RIGHT NOW. IF THIS PERSISTS I WOULD CONSIDER CERVICAL DIZZINES S CAUSE WITH HER RECENT NECK ISSUES.; RECORDED 11/15/19 12 9:48AM BY SARAH GUSTAFSON ON/ADDEN DUM Cindy [employer] PA-C [address], [place], [address], [facility] 6 12:49:54 Screenin g for malignan t neoplasm of colon Completed 201110/05/2013 RECORDED 11/15/19 12 9:48AM BY SARAH GUSTAFSON ON/ADDEN DUM Cindy Getable-C [address], [place], [address], [facility] 6 12:49:54 Low back pain 574366745 Completed 201110/05/2013 IMPRESSI ON: BETTER BUT STILL BOTHERSO ME, PT TO USE MEDS, HEAT SEE PSSP; RECORDED 11/15/19 12 9:48AM BY SARAH GUSTAFSON ON/ADDEN DUM [facility] 7 13:52:10 Nausea [id number] Completed 201110/05/2013 RECORDED 11/15/19 12 9:48AM BY SARAH GUSTAFSON ON/ADDEN DUM Cindy [employer] PA-C [address], [place], [address], [facility] 6 12:49:54 Enthesop athy [id number] Completed 201110/05/2013 IMPRESSI ON: LEFT ELBOW, ICE HAD RECENT INJECITO N; RECORDED 11/15/19 12 9:48AM BY SARAH GUSTAFSON ON/ADDEN DUM Cindy Stanley PA-C [address], [place], [address], [facility] 6 12:49:54 Epidemic vertigo 514638997 Completed 201110/05/2013 IMPRESSI ON: MOST LIKELY CAUSE OF HER DIZZINES S GIVEN THAT SHE HAS A VIRAL URI RIGHT NOW. IF THIS PERSISTS I WOULD CONSIDER CERVICAL DIZZINES S CAUSE WITH HER RECENT NECK ISSUES.; RECORDED 11/15/19 12 9:48AM BY SARAH GUSTAFSON ON/ADDEN DUM Cindy Stanley PA-C [address], [place], [address], [facility] 6 12:49:54 Acute pharyngi tis 643851598 Completed 201109/11/2013 RECORDED 01/14/20 12 2:39PM BY SARAH GUSTAFSON ON/ADDEN DUM Cindy Stanley PA-C [address] [facility] [address], [place], [address], [facility] 6 12:49:54 Acute upper respirat ory infectio n 23271263 Completed 201109/11/2013 RECORDED 01/14/20 12 2:39PM BY SARAH GUSTAFSON ON/ADDEN DUM Cindy Stanley PA-C [address], [place], [address], [facility] 6 12:49:54 Acute pharyngi tis 770176997 Completed 201110/04/2013 RECORDED 01/14/20 12 2:39PM BY SARAH GUSTAFSON ON/ADDEN DUM Cindy Stanley PA-C [address], [place], [address], [facility] 6 12:49:54 Acute upper respirat ory infectio n 66903901 Completed 201110/04/2013 RECORDED 01/14/20 12 2:39PM BY KWAN GUSTAFSONATI ON/ADDEN DUM Cindy Stanley PA-C [address], [place], [address], [facility] 6 12:49:54 Acute pharyngi tis [id number] Completed 201110/05/2013 RECORDED 01/14/20 12 2:39PM BY KWAN GUSTAFSONATI ON/ADDEN DUM Cindy Stanley PA-C [address], [place], [address], [facility] 6 12:49:54 Acute upper respirat ory infectio n [id number] Completed 201110/05/2013 RECORDED 01/14/20 12 2:39PM BY SARAH GUSTAFSON ON/ADDEN DUM Cindy Stanley PA-C [address], [place], [address], [facility] 6 12:49:54 Adult health examinat ion Completed 201209/11/2013 IMPRESSI ON: PAP IS DUE BUT DOES NOT WANT TODAY, WILL DO AT FOLLOWUP 11/10, IS EXERCISI GN EATING BETTER LOST WEIGHT; RECORDED 07/05/19 13 11:00AM BY KARINA HOLLAND MA, SARAH ON/ADDEN DUM Cindy Stanley PA-C [address], [place], [address], [facility] 6 12:49:54 Screenin g for malignan t neoplasm of cervix Completed 201209/11/2013 RECORDED 07/05/19 13 11:00AM BY KARINA HOLLAND MA, ANNOTATI ON/ADDEN DUM Cindy Stanley PA-C [address], [place], [address], [facility] 6 12:49:54 Menopaus al symptom [id number] Completed 201209/11/2013 IMPRESSI ON: MOST LIKELY PERIMENO PASUAL, CHECK LABS; RECORDED 07/05/19 13 11:00AM BY KARINA HOLLAND MA, SARAH ON/ADDEN DUM Cindy Stanley PA-C [address], [place], [address], [facility] 6 12:49:54 Administ ration of diphther ia and tetanus vaccine Completed 201209/11/2013 RECORDED 07/05/19 13 11:00AM BY KARINA HOLLAND MA, SARAH ON/ADDEN DUM Cindybarbara Stanley PA-C [address], [place], [address], [facility] 6 12:49:54 Adult health examinat ion Completed 201210/04/2013 IMPRESSI ON: PAP IS DUE BUT DOES NOT WANT TODAY, WILL DO AT FOLLOWUP 11/10, IS EXERCISI GN EATING BETTER LOST WEIGHT; RECORDED 07/05/19 13 11:00AM BY KARINA HOLLAND MA, SARAH ON/ADDEN DUM Cindybarbara Stanley PA-C [address], [place], [address], [facility] 6 12:49:54 Screenin g for malignan t neoplasm of cervix Completed 201210/04/2013 RECORDED 07/05/19 13 11:00AM BY KARINA HOLLAND MA, KWANATI ON/ADDEN DUM Cindy Jaden PA-C [address], [place], [address], [facility] 6 12:49:54 Menopaus al symptom [id number] Completed 201210/04/2013 IMPRESSI ON: MOST LIKELY PERIMENO PASUAL, CHECK LABS; RECORDED 07/05/19 13 11:00AM BY KARINA HOLLAND MA, ANNOTATI ON/ADDEN DUM Cindy Jaden PA-C [address], [place], [address], [facility] 6 12:49:54 Administ ration of diphther ia and tetanus vaccine Completed 201210/04/2013 RECORDED 07/05/19 13 11:00AM BY KARINA HOLLAND MA, ANNOTATI ON/ADDEN DUM Cindy Jaden PA-C [address], [place], [address], [facility] 6 12:49:54 Adult health examinat ion Completed 201210/05/2013 IMPRESSI ON: PAP IS DUE BUT DOES NOT WANT TODAY, WILL DO AT FOLLOWUP 11/10, IS EXERCISI GN EATING BETTER LOST WEIGHT; RECORDED 07/05/19 13 11:00AM BY KARINA HOLLAND MA, SARAH ON/ADDEN DUM Cindy Jaden PA-C [address], [place], [address], [facility] 6 12:49:54 Screenin g for malignan t neoplasm of cervix Completed 201210/05/2013 RECORDED 07/05/19 13 11:00AM BY KARINA HOLLAND MA, SARAH ON/ADDEN DUM Cindy Jaden SANCHEZ-C [address], [place], [address], [facility] 6 12:49:54 Menopaus al symptom [id number] Completed 201210/05/2013 IMPRESSI ON: MOST LIKELY PERIMENO PASUAL, CHECK LABS; RECORDED 07/05/19 13 11:00AM BY KARINA HOLLAND MA, ANNOTMIGUEL ON/ADDEN DUM Cindy Jaden SANCHEZ-C [address], [place], [address], [facility] 6 12:49:54 Administ ration of diphther ia and tetanus vaccine Completed 201210/05/2013 RECORDED 07/05/19 13 11:00AM BY KARINA HOLLAND MA, ANNOTATI ON/DEQUAN TAYLA Cindybarbara Stanley PA-C [address] [facility] [address], [place], [address], [facility] 6 12:49:54 Generali zed anxiety disorder [id number] Completed 201307/16/2016 RECORDED 06/05/19 14 1:32PM BY PETRONA COX, OFFICE VISIT Juanita adhikari [facility] 7 13:53:13 Backache [id number] Completed 201309/05/2019 IMPRESSI ON: ACUTE L LOWER BACK PAIN STARTING APPROX 3 WEEKS AGO, ? LUMBAR STRAIN VS SACROILI ITIS LIKELY SECONDAR Y TO SNOW SHOVELIN G AND WORK DUTIES (FREQ LIFTING) . PROVIDED WITH PT INFO FROM [facility] RE SACROILI ITIS. ADVISED RE ACTIVITY MODIFICA TION, INTERMIT TENT HEAT/ICE , CONTINUE NSAID AND PRN PAIN MED AND MUSCLE RELAXER. SHE IS AWARE OF POSSIBLE S/E INCLUDIN G SEDATION , GI EFFECTS AND DEPENDEN CE. REQ SHE CALL IN TWO WEEKS WITH UPDATE, IF LITTLE IMPROVEM ENT MAY SEND FOR COURSE OF PT.; RECORDED 06/05/19 14 1:44PM BY PETRONA COX, OFFICE VISIT Juanita adhikari [facility] 0 14:07:31 Depressi ve disorder [id number] Completed 201307/16/2016 RECORDED 06/05/19 14 1:32PM BY PETRONA COX, OFFICE VISIT Juanita adhikari [facility] 7 13:52:27 Pure hypercho lesterol emia [id number] Completed 201307/16/2016 RECORDED 06/05/19 14 1:32PM BY PETRONA COX, OFFICE VISIT Juanita adhikari, [facility] 7 13:52:06 Muscle, ligament and fascia disorder s 991191384 Completed 201307/16/2016 IMPRESSI ON: NEW PROBLEM PT TO SET UP PT; RECORDED 06/05/19 14 1:32PM BY PETRONA COX, OFFICE VISIT Juanita adhikari [facility] 7 13:52:13 Single major depressi ve episode Completed 201307/16/2016 RECORDED 06/05/19 14 1:32PM BY PETRONA COX, OFFICE VISIT Juanita adhikari [facility] 7 13:52:24 Osteoart hritis [id number] Completed 201302/24/2024 ESTEFANÍA NERI MD [address] [facility] [address], [facility] [place], [address], [facility] 4 11:20:39 Brachial neuritis [id number] Completed 201307/16/2016 IMPRESSI ON: PT IS GETTING PT AT [facility], WILL SEE DR FAJARDO AFTER AND MAY NEED INJECITO N, PAIN THER KRYSTA ND OFF FOR 2 YEARS.; RECORDED 06/05/19 14 2:19PM BY JUANITA Nelson MD, OFFICE VISIT Juanita adhikari [facility] 7 13:52:45 Costal chondrit is [id number] Completed 201607/16/2016 Juanita adhikari [facility] 7 13:53:03 Chronic neck pain 42863625493 07 Active 2017 currentl y stable ESTEFANÍA NERI MD [address], [facility] [place], [address], [facility] 4 11:20:07 Polyp of colon 12446211 Active 2017 Juanita adhikari [facility] 8 14:35:49 SARS-CoV -2 Completed 202010/31/2020 Juanita Renan thormiriamrahul null, [facility] 1 11:18:53 History of calculus of kidney 910380534 Active 2020 Juanita LawChuy thormiriamrahul null, [facility] 1 14:59:31 Pain of left shoulder joint 58802799305 659185 Completed 202002/24/2024 ESTEFANÍA NERI MD [address], [place], [address], [facility] 4 11:19:18 Lumbago with sciatica 094163919 Completed 202102/24/2024 ESTEFANÍA NERI MD [address], [place], [address], [facility] 4 11:20:35 Pain of right shoulder joint 97909645138 233948 Active 2022 Girma Stanley PA-C [address] [facility] [address], [place], [address], [facility] 3 14:42:12 Problem Notes None recorded. Procedures Surgical History Date Name Laterality Status Provider Name and Address Organization Details Recorded Time 12/02/19 24 Most Recent Mammogram completed Shannon Dwyer [facility] 12/05/2023 09:40:07 02/17/20 21 acromioplasty of shoulder completed Yeimy Rinaldi [facility] 02/24/2021 15:32:40 01/31/20 20 Mammogram screening completed Yeimy Rinaldi [facility] 02/08/2020 15:19:42 08/31/19 19 Mini-Cog Test completed Petrona Cox MA [facility] 08/30/2018 13:08:31 08/27/19 18 Orthopedic Surgery completed Loretta Hidalgo [facility] 09/06/2017 15:17:27 09/25/19 17 Date of Last Colonoscopy completed Petrona Cox MA [facility] 07/18/2017 14:10:30 09/25/19 17 Colonoscopy completed Marcela Alberto CHLOE [facility] 09/29/2016 15:16:39 06/29/19 16 Orthopedic Surgery completed Petrona Cox MA [facility] 07/16/2015 10:54:21 Dxa bone density farhan vrt fx completed Karina jansen MA [facility] 07/16/2016 13:38:15 Orthopedic Surgery completed Petrona Cox MA [facility] 12/24/2021 10:28:24 Imaging Results None recorded. Procedure Notes None recorded. Medical Equipment None Reported. Allergies Allergen ID Allergen Name Allergen Category Reaction Reaction Severity Criticality Documentation Date Start Date Code Code System Note Provider Name and Address Organization Details Recorded Time 3570 Ultram medicatio n rash Not available Not available 09/11/20132013 09853 6 RxNorm CHLOE Alvarez [facility] 5 11:37:48 Medications Name Sig Start Date Stop Date Status Note LastModified by Organization Details LastModified Time carisopro dol 350 mg tablet Take 1 tablet twice a day by oral route as directed for 30 days. active Not Available Not Available No t Available cyclobenz aprine 10 mg tablet TAKE 1 TABLET BY MOUTH EVERY DAY NEEDED FOR SPASM, CAUTION DROWSINE SS FOR 8 DAYS. 12/24 completed Not Available Not Available Not Available lamotrigi ne 150 mg tablet TAKE 1 TABLET BY MOUTH EVERY DAY AT NIGHT 10/31 completed Not Available Not Available Not Available prednison e 10 mg tablet Take 5 tablets every day by oral route for 12 days. 05/30 completed Not Available Not Available Not Available tizanidin e 2 mg tablet Take 1 tablet every 8 hours by oral route as needed for 30 days. 07/18 completed Not Available Not Available Not Available trazodone 50 mg tablet Take 0.5 tablets every day by oral route for 18 days. 10/13 completed Not Available Not Available Not Available aspirin 325 mg tablet TAKE 1 TABLET BY MOUTH EVERY DAY FOR 14 DAYS 06/22 completed Not Available Not Available Not Available ibuprofen 800 mg tablet TAKE 1 TABLET BY MOUTH EVERY 8 HOURS NEEDED FOR PAIN 10/31 completed Not Available Not Available Not Available valacyclo vir 1 gram tablet TAKE 1 TABLET EVERY 8 HOURS BY ORAL ROUTE WITH MEALS FOR 7 DAYS. 08/19 completed Not Available Not Available Not Available meloxicam 15 mg tablet TAKE 1 TABLET BY MOUTH EVERY DAY 10/31 completed Not Available Not Available Not Available naltrexon e 50 mg tablet 07/14 completed Not Available Not Available Not Available prednison e 20 mg tablet TAKE 2 TABLETS BY MOUTH EVERY DAY IN THE MORNING FOR 5 DAYS 04/05 completed Not Available Not Available Not Available Tubersol 5 tub. unit/0.1 mL intraderm al injection solution Inject 0.1 mL every day by intrader mal route for 1 day. 03/30 completed Not Available Not Available Not Available gabapenti n 400 mg capsule Take 1 capsule twice a day by oral route as directed for 30 days. 05/26 completed Girma, ryan increase d pt's med to 400mg in a.m. and afternoo n, (then 600mg @ bedtime, on separate script) Ins will only 6 tabs daily. Not Available Not Available Not Available olanzapin e 5 mg tablet Take 1 tablet every day by oral route as directed for 30 days. 08/30 completed Not Available Not Available Not Available olanzapin e 10 mg tablet 06/08 completed Not Available Not Available Not Available meclizine 12.5 mg tablet THREE TIMES DAILY, NEEDED 06/27 completed RECORDED 07/05/19 12 4:01PM BY DANIEL NIEVES, MEDICATI ON AUTO-GABRIEL CTIVATIO N;CAUTIO N DROWSINE SS Not Available Not Available Not Available amlodipin e 5 mg tablet TAKE 1 TABLET BY MOUTH EVERY DAY active Not Available Not Available No t Available sulfameth oxazole 800 mg-trimet hoprim 160 mg tablet Take 1 tablet twice a day by oral route for 7 days. 07/12 completed Not Available Not Available Not Available olanzapin e 2.5 mg tablet Take 1 tablet every day by oral route as directed for 30 days. 11/27 completed Not Available Not Available Not Available olanzapin e 7.5 mg tablet 06/08 completed Not Available Not Available Not Available acetamino phen 500 mg tablet TAKE 2 TABLETS BY MOUTH 3 TIMES A DAY active Not Available Not Available No t Available amoxicill in 500 mg tablet TAKE 1 TABLET BY MOUTH EVERY 8 HOURS WITH FOOD 10/31 completed Not Available Not Available Not Available lamotrigi ne 25 mg tablet Take 1 tablet twice a day by oral route. 03/30 completed Not Available Not Available Not Available meloxicam 7.5 mg tablet TAKE 1 TABLET BY MOUTH EVERY DAY 06/22 completed Not Available Not Available Not Available oxycodone -acetamin ophen 5 mg-325 mg tablet Take 2 tablets every day by oral route as directed for 5 days. 05/26 completed Not Available Not Available Not Available hydromorp yumiko 2 mg tablet Take by oral route for 5 days. 05/06 completed Not Available Not Available Not Available oxycodone -acetamin ophen 10 mg-325 mg tablet active Not Available Not Available Not Available tamsulosi n 0.4 mg capsule active Not Available Not Available Not Available trazodone 100 mg tablet Take 1 tablet every day by oral route at bedtime. 11/11 completed Not Available Not Available Not Available naproxen sodium 550 mg tablet Take 1 tablet twice a day by oral route as directed for 10 days. 05/26 completed Not Available Not Available Not Available dexametha sone 4 mg tablet Take 1 tablet by oral route for 4 days. 03/10 completed Not Available Not Available Not Available buspirone 10 mg tablet 1 po qd 05/26 completed Not Available Not Available Not Available docusate sodium 100 mg capsule TAKE 1 CAPSULE BY MOUTH EVERY DAY NEEDED 06/22 completed Not Available Not Available Not Available gabapenti n 300 mg capsule TAKE 1 CAPSULE( S) in the evening as needed for 30 days 2024 active Not Available Not Available Not Avai lable diclofena c sodium 75 mg tablet,de layed release TAKE 1 TABLET TWO TIMES DAILY FOR 30 DAYS AND THEN NEEDED active Not Available Not Available No t Available hydroxyzi ne HCl 25 mg tablet TAKE 1 TABLET BY MOUTH EVERY DAY AT BEDTIME FOR 5 DAYS 08/19 completed Not Available Not Available Not Available codeine 10 mg-guaife nesin 100 mg/5 mL oral liquid Take 10 mL every 4 hours by oral route as needed. 08/30 completed Not Available Not Available Not Available diclofena c sodium 50 mg tablet,de layed release BID 2013 active RECORDED 06/05/19 14 2:08PM BY JUANITA Nelson MD, OFFICE VISIT; Not Available Not Available Not Available gabapenti n 100 mg capsule TAKE 1 CAPSULE BY MOUTH EVERYDAY AT BEDTIME active Not Available Not Available No t Available ibuprofen 600 mg tablet TAKE 1 TABLET BY MOUTH 3 TIMES DAILY (WITH MEALS) FOR 20 DAYS. 08/19 completed Not Available Not Available Not Available methylpre dnisolone 4 mg tablets in a dose pack TAKE 6 TABLETS ON DAY 1 DIRECTED ON PACKAGE AND DECREASE BY 1 TAB EACH DAY FOR A TOTAL OF 6 DAYS 10/16 completed Not Available Not Available Not Available albuterol sulfate HFA 90 mcg/actua tion aerosol inhaler Inhale 2 puffs every 4 hours by inhalati on route as needed. 09/04 completed Not Available Not Available Not Available lamotrigi ne 100 mg tablet Take 1 mg every day by oral route as directed for 30 days. 03/10 completed Not Available Not Available Not Available naproxen 500 mg tablet Take 1 tablet twice a day by oral route for 15 days. 07/16 completed Not Available Not Available Not Available oxycodone 5 mg tablet TAKE 1 TABLET BY MOUTH EVERY 4 HOURS NEEDED 06/22 completed Not Available Not Available Not Available Benadryl 25 mg capsule Take 1 capsule by oral route. 09/04 completed Not Available Not Available Not Available codeine-g uaifenesi n oral syrup Q 4 HOURS PRN 11/22 completed RECORDED 01/14/20 12 2:39PM BY DANIEL NIEVES, MEDICATI ON AUTO-GABRIEL CTIVATIO N; Not Available Not Available Not Available cyclobenz aprine 5 mg tablet TAKE 1 TABLET BY MOUTH AT BEDTIME NEEDED FOR 30 DAYS 10/31 completed Not Available Not Available Not Available nitrofura ntoin monohydra te/macroc rystals 100 mg capsule TAKE 1 CAPSULE BY MOUTH EVERY 12 HOURS FOR 7 DAYS 04/30 completed Not Available Not Available Not Available calcium 1 tablet daily active Not Available Not Available No t Available naproxen sodium TWO TIMES DAILY, NEEDED 03/17 completed RECORDED 03/17/19 13 1:11PM BY MARGARITA JIMENEZ MA, OFFICE VISIT; Not Available Not Available Not Available multivita min 1 tablet daily GNC total active Not Available Not Available No t Available Soma 250 mg tablet Take 1 tablet as needed by oral route at bedtime for 30 days. 06/08 completed Not Available Not Available Not Available GaviLyte- N 420 gram oral solution 11/11 completed Not Available Not Available Not Available Gavilyte- C 240 gram-22.7 2 gram-6.72 gram-5.84 gram oral solution TAKE 8 OUNCE BY MOUTH DIRECTED 05/06 completed Not Available Not Available Not Available OxyContin 10 mg tablet,cr ush resistant ,extended release active Not Available Not Available Not Available Vitals Date Recorded Body height Body mass index (BMI) Body weight Heart rate Oxygen saturation Oxygen saturation in Arterial blood by Pulse oximetry Respiratory rate Body temperature Systolic And Diastolic Systolic And Diastolic Provider Name and Address Organization Details Last Updated DateTime 5 165.74 cm 26.4 kg/m2 00375.7 8 g 91 /min 99 % 99 % 18 /min 98.2 [degF] 142/82 mm[Hg] 142/81 mm[Hg] ESTEFANÍA NERI MD [address] [facility] [address], [facility] [place], [address], [facility] 5 13:51:30 Date Recorded Body height Body mass index (BMI) Body weight Oxygen saturation Oxygen saturation in Arterial blood by Pulse oximetry Heart rate Body temperature Systolic And Diastolic Systolic And Diastolic Provider Name and Address Organization Details Last Updated DateTime 5 165.74 cm 27.3 kg/m2 97837.4 4 g 99 % 99 % 93 /min 98.5 [degF] 143/89 mm[Hg] 164/87 mm[Hg] Petrona Cox MA [facility] 5 15:32:43 Date Recorded Pain severity - 0-10 verbal numeric rating [Score] - Reported Body temperature Body height Body mass index (BMI) Body weight Heart rate Oxygen saturation Oxygen saturation in Arterial blood by Pulse oximetry Systolic And Diastolic Provider Name and Address Organization Details Last Updated DateTime 4 6 97.6 [degF] 165.74 cm 26.6 kg/m2 58324.3 7 g 81 /min 98 % 98 % 158/83 mm[Hg] Karina hernandez MA [facility] 4 11:33:10 Date Recorded Body height Body mass index (BMI) Body weight Heart rate Oxygen saturation Oxygen saturation in Arterial blood by Pulse oximetry Body temperature Systolic And Diastolic Provider Name and Address Organization Details Last Updated DateTime 5 165.74 cm 26.9 kg/m2 15801.5 6 g 107 /min 97 % 97 % 98 [degF] 120/72 mm[Hg] El[facility]ohn[facility] 5 11:10:54 Date Recorded Systolic And Diastolic Provider Name and Address Organization Details Last Updated DateTime 02/24/2024 130/82 mm[Hg] ESTEFANÍA NERI MD [address], [place], [address], [facility] 02/24/2024 11:29:19 Date Recorded Body height Body mass index (BMI) Body weight Heart rate Oxygen saturation Oxygen saturation in Arterial blood by Pulse oximetry Body temperature Systolic And Diastolic Provider Name and Address Organization Details Last Updated DateTime 4 165.74 cm 26.8 kg/m2 50351.9 6 g 100 /min 98 % 98 % 97.6 [degF] 136/83 mm[Hg] Mere Bass MA [facility] 4 11:04:08 Social History Question Answer Notes LastModified by Organizat ion Details LastModified Time Tobacco Smoking Status Never Smoker Marcela adhikari [facility] 02/08/2014 15:06:40 Do You Have An Advance Directive? Yes HCP Signed On 07/16/16 [email or web address] Information not available 12/24/2021 Is Blood Transfusion Acceptable In An Emergency? Yes Information not available 04/18/2015 What Is Your Level Of Caffeine Consumption? Occasional [place] Information not available 02/24/2024 How Much Tobacco Do You Chew? None Information not available 07/16/2016 In The 14 Days Before Symptom Onset, Have You Had Close Contact With A Person Who Is Under Investigation For COVID-19 While That Person Was Ill? No [email or web address] Information not available 12/24/2021 What Type Of Diet Are You Following? REGULAR Information not available 07/16/2016 Which Illicit Or Recreational Drugs Have You Used? None Information not available 07/16/2016 Live Alone Or With Others? Alone Information not available 02/24/2024 Do You Take Precautions To Prevent Distracted Driving? Yes [email or web address] Information not available 04/18/2015 How Often Do You Need To Have Someone Help You When You Read Instructions, Pamphlets, Or Other Written Material From Your Doctor Or Pharmacy? Never Information not available 12/24/2021 Have You Served In The ? No Information not available 07/16/2016 Have You Or Anyone In Your Household Had Any Of The Following Symptoms In The Last 14 Days: Sore Throat, Cough, Chills, Body Aches For Unknown Reasons, Shortness Of Breath For Unknown Reasons, Loss Of Smell, Loss Of Taste, Fever At Or Greater Than 100 Degrees Fahrenheit? No Information not available 09/05/2019 Are You Or Anyone In Your Household A Health Care Provider Or Emergency Responder? No [email or web address] Information not available 09/05/2019 To The Best Of Your Knowledge Have You Been In Close Proximity To Any Individual Who Tested Positive For COVID-19? No [email or web address] Information not available 09/05/2019 Have You Recently Traveled To A COVID-19 High Risk Area Or Gathering In The Last 10 Days? No [email or web address] Information not available 03/10/2020 What Was The Date Of Your Most Recent Tobacco Screening? 02/24/2024 Information not available 02/24/2024 How Many Children Do You Have? 0 [email or web address] Information not available 12/24/2021 Do You Use Protection During Sex? No Information not available 07/16/2016 What Is Your Relationship Status? [email or web address] Information not available 12/24/2021 Do You Use Your Seat Belt Or Car Seat Routinely? Yes [email or web address] Information not available 12/24/2021 Seat Belts Used Routinely Yes [email or web address] Information not available 12/24/2021 Are You Sexually Active? No [email or web address] Information not available 12/24/2021 Smoke Alarm In Home Yes [email or web address] Information not available 12/24/2021 Do You Have Smoke And Carbon Monoxide Detectors In Your Home? Yes [email or web address] Information not available 12/24/2021 At What Age Did You Start Smoking Tobacco? 0 Information not available 07/16/2016 Are You Passively Exposed To Smoke? No Information not available 07/16/2016 How Much Tobacco Do You Smoke? No Information not available 07/16/2016 Do You Use Sunscreen Routinely? No [email or web address] Information not available 12/24/2021 How Many Years Have You Smoked Tobacco? 0 Information not available 07/16/2016 Sex: Unknown Functional Status Question Answer Note LastModified by Organizat ion Details LastModified Time Do you use any illicit or recreational drugs? No Information not available 12/05/2023 Do you or have you ever used any other forms of tobacco or nicotine? No [email or web address] Information not available 12/24/2021 What is your level of alcohol consumption? Moderate [email or web address] Information not available 12/24/2021 Do you or have you ever used smokeless tobacco? Never used smokeless tobacco [email or web address] Information not available 09/05/2019 Are you currently employed? No Unemployed Information not available 02/24/2024 Are you able to walk independently without assistance or assistive devices? YESWOREST [email or web address] Information not available 12/24/2021 Are you able to care for yourself independently? Yes Information not available 03/29/2014 Do you or have you ever used e-cigarettes or vape? Never used electronic cigarettes Information not available 12/24/2021 What is your exercise level? Occasional Information not available 02/24/2024 Mental Status None recorded. Family History Relationship Description Onset Age of this Age Resolved Age Notes LastModified by Organization Details LastModified Time Mother Dementia [email or web address] Not avail able 05/23/2015 11:00:02 Mother Hypertensive disorder [email or web address] Not available 11:00:02 Mother Polyp of colon [email or web address] Not available 12/24 10:17:26 Mother Osteoporosis [email or web address] Not a vailable 05/23/2015 11:00:02 Mother Hypercholest erolemia [email or web address] Not available 11:00:02 Father Dementia duniaaheem Not avail able 05/23/2015 11:00:02 Medical History Condition Response Arthritis Y Allergies Y Gynecological History Statement/Question Response Colposcopy Date of Last Pap Smear Date of Last Colonoscopy 09/24/2016 Most Recent Mammogram 12/02/2023 Obstetrics History GPAL:G 0 P 0 0 0 0 Immunizations Vaccine Type Date Status Note Provider Nam e and Address Organization Details Recorded Time COVID-19, mRNA, LNP-S, PF, 30 mcg/0.3 mL dose 06/13/19 21 completed CHLOE Cash [facility] 10/31/2020 11:05:38 COVID-19, mRNA, LNP-S, PF, 30 mcg/0.3 mL dose 07/07/19 21 completed [facility]LOE Cash [facility] 10/31/2020 11:06:30 COVID-19, mRNA, LNP-S, PF, 30 mcg/0.3 mL dose 02/13/20 21 completed [facility]LOE Arnett [facility] 10/13/2021 09:30:50 COVID-19, mRNA, LNP-S, PF, 30 mcg/0.3 mL dose, cathie-sucrose 07/14/19 22 completed CHLOE Cash [facility] 12/24/2021 10:18:01 zoster recombinant 06/27/19 25 completed Not Available [facility] 12/17/2024 10:58:19 zoster recombinant 09/23/19 25 completed Not Available [facility] 12/17/2024 10:58:19 Influenza, split virus, quadrivalent, PF 07/17/19 17 cancelled patient objection Not Available [facility] 03/17/2019 02:22:07 Tdap 06/03/19 13 completed Not Available [facility] 09/11/2013 13:42:23 Past Encounters Encounter ID Performer Location Encounter Start Date Encounter Closed Date Diagnosis/Indication Diagnosis SNOMED-CT Code Diagnosis ICD10 Code Diagnosis IMO Codes Diagnosis Note [id number] [facility] [address] [place] [address] 08/28/2010 00:00:00 [id number] [facility] [facility] [address] [place] [address] 03/12/2011 00:00:00 [id number] [facility] [facility] [address] [place] [address] 04/09/2011 00:00:00 [id number] [facility] [facility] [address] [place] [address] 06/18/2011 00:00:00 [id number] [facility] [facility] [address] [place] [address] 11/15/2011 00:00:00 [id number] [facility] [facility] [address] [place] [address] 01/14/2012 00:00:00 [id number] [facility] [facility] [address] [place] [address] 03/17/2012 00:00:00 [id number] [facility] [facility] [address] [place] [address] 06/02/2012 00:00:00 [id number] [facility] [facility] [address] [place] [address] 08/04/2012 00:00:00 [id number] [facility] [facility] [address] [place] [address] 04/24/2013 00:00:00 [id number] [facility] [facility] [address] [facility] [place] [address] 06/04/2013 00:00:00 [id number] Christiano Carlos [facility] Main Office [address] [facility] [address] [place] [address] 02/08/2014 14:44:31 02/08/2014 15:37:35 Sacroiliac disorder [id number] if not improving she will contact [facility] who she has seen before [id number] Ender Zaman [facility] Main Office [address] [address] [place] [address] 03/29/2014 12:57:07 03/29/2014 13:31:15 Neoplasm of uncertain behavior of skin 82974745 Developed new skin lesion 7 months ago, she keeps picking at it and it bleeds then scabs. She is becoming concerned as it is getting larger. Will refer to derm for further eval. Osteoarthritis 728896103 P atient with hx bilateral knee surgeries, having some right knee pain, she requests referral to orthopedic s. Elevated blood-pressure reading without diagnosis of hypertension 081363866 Repeat BP WNL, will have this rechecked at her PE in May [id number] Juanita hogan MD Main Office [address] [place] [address] [place] [address] 01/03/2015 14:00:29 01/03/2015 15:07:07 Neck pain 72004564 M54.2 pain is quite disruptive , and she is taking way too much motrin, limit motrin to 600mg at a time for for n ot take a break from it and try meds below, stop lifting heavy boxes Cervical radiculopathy 46265910 M54.12 Fatigue 53277010 R53.83 [id number] Cindy Stanley PA-C Main Office [address] [address] [place] [address] 02/07/2015 13:27:05 02/07/2015 14:18:31 Lumbar sprain 668338723 S33.9XXA Lumbago with sciatica 20 8523080 M54.40 New onset low back issues. Pt. has knee and neck degenerati ve problems. Will do lumbar spine XRAys ./ PT. has catracho with PSS in February. Treat with Medrol dosepack and after with Naprosym BID. Pt. still has muscle relaxants at home. [id number] Cindy Stanley PA-C Main Office [address] [facility] [address] [place] [address] 03/12/2015 13:53:19 03/12/2015 14:54:01 Arthropathy of lumbar facet joint 766833057 M46.96 Degenerati on of lumbar intervertebral disc 17582399 M51.36 Pt. has catracho next week with Dr. Maxwell. Schedule MRI at [facility]. Ibuprofen 800 mg TID with food . Oxycodone 5-325 mg PRN. MOist heat applicatio ns. Note for work to release her until next week. [id number] Juanita hogan MD Main Office [address] [facility] [address] [place] [address] 04/18/2015 13:15:52 04/18/2015 14:44:15 Adult health examination 442852116 Z00.00 Dysuria 87897099 R30.0 Screening for malignant neoplasm of colon 262978915 Z12.11 Chest discomfort 8036141 09 R07.89 Abdominal pain 17164953 R10.9 pt with a lot fo discomfort , bilateral flanks but diffuse, referred pain, hx fo chills and low grade fever here, normal urine dip, ? intraabdom inal infectious process needs eval and CT of abdomena nd pelvis for clarificat ion today, to ER. [id number] Juanita hogan MD Main Office [address] [facility] [address] [place] [address] 05/01/2015 08:44:24 05/01/2015 10:03:28 Backache 307284250 M54.9 on meds and in care Hydronephrosis 58113952 N13.30 seen on bedside US in ER, will repeat to look for resolution , they thought a kidney stone had passed Impacted cerumen 1549452 6 H61.23 cleaned out without problems Screening procedure 2012 5006 Z13.9 [id number] Cindy Stanley PA-C Main Office [address] [facility] [address] [place] [address] 05/23/2015 10:51:47 05/23/2015 11:46:03 Acute cervical sprain 828512596 S13.4XXA Acute neck sprain due to fall. Tension headache. Start Ibuprofen 800 mg TID with food, Cyclobenza tomi 10 mg BID for 5-7 days, moist heat and massage. Referral to PT at [facility] for 4 weeks. F/u as needed. [id number] Juanita hogan MD Main Office [address] [facility] [address] [place] [address] 07/16/2015 10:43:39 07/16/2015 11:29:32 Neck pain 84858499 M54.2 a bit better after PT, she needs more since still with neck pain, she will setup when she can afford the copay, pt is currently on crutches for recent knee surgerya dn has chronic back pain, unable to work due to these issues. 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 it includes a lot of lifting, twisting, bending. Bipolar disorder 7169005 4 F31.9 pt is depressed, many health issues, she needs to see a prescriber for ehr meds for depression due to bipolar diagnosis, I will ask Amanda the therapist who owrks out of our office to help with this, pts therapist said she could not get her seen for meds before 11/13. [id number] Juanita hogan MD Main Office [address] [facility] [address] [place] [address] 08/25/2015 15:06:17 08/25/2015 15:40:26 Bipolar disorder 65113396 F31.9 just saw psychiatry today and was placed on lamictal, she will taper upward. Knee pain 78199132 M25.[address] Calix, he removed a screw and has had pain since, not a new issue, there for weeks Low back pain 651656243 M54.5 injections helped but cannot get for awhile now [id number] Cindy Stanley PA-C Main Office [address] [address] [place] [address] 10/22/2015 10:45:53 10/22/2015 11:41:14 Lumbosacral radiculopathy 0804821 M54.17 Acute flare of lumbar radiculopa thy . Will start Prednisone taper and muscle relaxants. Followed by a week or so of NSAIDs, F/u with Dr. Maxwell. Elevated blood-pressure reading without diagnosis of hypertension 581560616 R03.0 Discontinu e or significan tly lower caffeine intake. Lower sodium. Test BP at home and returnin 10 days for f/u. [id number] Cindy Stanley PA-C Main Office [address] [address] [place] [address] 11/04/2015 13:33:14 11/04/2015 14:49:08 Elevated blood-pressure reading without diagnosis of hypertension 389044400 R03.0 Continue no caffeine and low sodium diet. test BP at home daily and return as scheduled at the end of the month with PCP with BP readings to determine if medication addition is needed. [id number] Juanita hogan MD Main Office [address] [address] [place] [address] 11/28/2015 14:53:54 11/28/2015 15:43:10 Low back pain 064158545 M54.5 injections helped but cannot get one in 01/[address] Goodwin she will call Dr Goodwin and ask if she can do PT. refilled soma today [id number] Cindy Stanley PA-C Main Office [address] [address] [place] [address] 06/08/2016 10:56:39 06/08/2016 11:26:40 Bipolar disorder 48890984 F31.9 Generalize d anxiety disorder 69141513 F41.1 Insomnia 476469071 G47.0 0 INsomnia secondary to uncontroll ed bipolar d/o and discontinu ation of all the meds. Pt. is advised to immediatel y reinitiate all her meds including sleeping aids/Trazo done and schedule sooner catracho for this or next week with psych. [id number] Juanitadolores hogan MD Main Office [address] [facility] [address] [facility] [address] 07/16/2016 13:19:39 07/16/2016 14:16:48 Adult health examination 022361952 Z00.00 pt is very overdue for pap, will consider doing it here next time. Immunization refused 275 739149 Z28.21 does not want flu shot Screening for malignant neoplasm of colon 554716515 Z12.11 needs first one pt will arrange Bipolar disorder 8444936 4 F31.9 sees psychiatry and she tok herself off meds for now, feels well for a month, will discuss with them Fatigue 57693509 R53.83 refer to sleep medicine for sleep apnea eval [id number] Juanita hogan MD Main Office [address] [place] [address] 11/11/2016 13:49:16 11/11/2016 14:33:34 Neck pain 00514538 M54.2 flare of neck pain, very uncomforta ble, did PT in the past, will tx as below with gabapentin , muscle relaxer and refer to pain management , ? candidate for TENS unit ro injection? Cervical radiculopathy 64141235 M54.12 see above [id number] Juanita hogan MD Main Office [address] [facility] 207 [place] [address] 03/24/2017 13:38:56 03/24/2017 14:33:13 Backache 109080690 M54.9 fell last night on ice, tender to palpation, will xray to rule out compressio n fracture Bipolar disorder 8553084 4 F31.9 not on meds Neck pain 46863830 M54.2 acute n chronic, heat, muscle relaxers, will see pain management back, argenis sk if needs a neurosurge on, is so will refer to Dr Narvaez [id number] Juanita hogan MD Main Office [address] [place] [address] 03/30/2017 13:28:12 03/30/2017 13:47:37 Tuberculosis screening 578694202 Z11.1 [id number] Juanita hogan MD Main Office [address] [facility] [address] [place] [address] 03/31/2017 14:08:44 03/31/2017 14:37:08 Cervical radiculopathy 70674423 M54.12 much worse after fall, left arm pain, no weakness, treat with prednisone , continue gabapentin adn muscle relaxer Bipolar disorder 8117132 4 F31.9 on meds by psychiatry [id number] Juanita hogan MD Main Office [address] [facility] [address] [place] [address] 04/01/2017 13:01:57 04/01/2017 13:36:43 [id number] Cindy Stanley PA-C Main Office [address] [facility] [address] [place] [address] 04/08/2017 09:50:29 04/08/2017 10:59:01 Neck pain 81875220 M54.2 acute on chronic neck pain exacerbate d by fall 2 weeks ago. Pain is radiating to the L. arm now. POssibly some nerve impingemen t. Pt. is seeing [facility] pain management on . In the mean time I asked her to try to increase Gabapentin 100 mg 4 po in am from 3 , 3 po at lunch and supper. She was given Tinazidine to take at HS by PCP on Mar 24. I will start her on prednisone taper and have xrays done. If pain persists , she might need to have MRI of the neck. Pain in right knee 10744 29470 97003 M25.561 secondary to fall. XRay to r/o fracture. recommend to apply ice 10 minutes every 2-4 hrs today. TID patrick. XRAy ordered. Fall due t o slipping on ice or snow 570655756 W00.0XXD [id number] Cindy Stanley PA-C Main Office [address] [facility] [address] [place] [address] 05/30/2017 14:34:35 05/30/2017 15:23:31 Hand pain 73105291 M79.642 Cervical radiculopathy 76390267 M54.12 [facility] results of the C-spine MRI. In the mean time , will start Prednisone and after will take Meloxicam 15 mg daily. Will try to increase Gabapentin to 500 mg total per day in 2 divided doses and if tolerated in 1 week go to 300 mg BID. [id number] Girma Stanley PA-C Main Office [address] [address] [place] [address] 07/14/2017 11:28:05 07/14/2017 12:18:09 Pain of right ankle joint 5594222517 7817713 M25.571 and edema - ? sprain vs fx - check xray - if + will send to ortho, meanwhile - will give aircast and send to PT - also rec prn tyl, cont rice, rec alphabet stretch [id number] Juanita hogan MD Main Office [address] [address] [place] [address] 07/18/2017 14:03:45 07/18/2017 14:40:31 Adult health examination 417696552 Z00.00 pr refuses pap, she does not want one here either, rest of screening is utd Chronic neck pain 850635 7807 107 M54.2 better, gabapentin helps, Sprain of ankle 71315369 S93.411S right ankle sprain, start PT continue using it, ROM Bipolar disorder 9659448 4 F31.9 on meds by psychiatry , continue [id number] Juanita hogan MD Main Office [address] [address] [place] [address] 10/12/2017 08:39:12 10/12/2017 19:16:17 [id number] Girma Stanley PA-C Main Office [address] [place] [address] [place] [address] 10/18/2017 12:56:56 10/18/2017 13:55:41 Backache 270990183 M54.10 seen at ER then C - rev note will add PT - she was in PT for her knee, advised her to go to same place - maybe do both advised pt to hold anaprox while on pred - is high risk for gi ulcer (no gi upset curr) - rather take tyl 500mg 2 tabs 3x/day - when pred is done, then can resume anaprox rec. increase gabapentin to 400mg am, 400mg afternoon, 600mg hs (was 300 prior) Dr. Goodwin retired - had epidural injxns in past - pending see Dr. Oglesby 10.4 Knee pain 63139851 M25.5 61 G89.29 s/p R knee arthroscop y by Dr. Rayo - but he does not do partial knee replacemen t - so has pending eval c neos (Dr. Gómez) 10.30 Chronic neck pain 434185 1542 107 M54.2 last seen by [facility] 4.18 - was d/c'd - better [id number] Junaita hogan MD Main Office [address] [facility] 207 [place] [address] 05/26/2018 15:10:48 05/26/2018 15:59:17 Pain in left knee 9957275407 62877 M25.562 secondary to injury , ? dislocatio n. Pt. will have XRay done. Compressio n, ice and antiinflam matory.If continues with swelling and pain , will refer to ortho for complete eval. Sprain of interphalangeal joint of finger 81192728 S63.630A Ice, immobilize and take NSAIDs as discussed. [id number] Wali Champagne MD Main Office [address] [address] 08/21/2018 16:12:51 08/21/2018 16:48:33 Acute bronchitis 19901137 J20.9 Cough 45435166 R05 [id number] Juanita hogan MD Main Office [address] [address] 08/30/2018 12:55:25 08/30/2018 13:42:37 Adult health examination 600818945 Z00.00 pr refuses pap, she does not want one here either, rest of screening to be done, will set up mammogram Screening for malignant neoplasm of breast 606370279 Z12.39 pt will arrange Hypercholesterolemia 136 28991 E78.00 Hand pain 15271766 M79.6 42 left first finger with tender lump, came on suddenly when she opened a jar Backache 317738320 M54.9 john gabapentin as needed [id number] Maik Goldman MD Main Office [address] [facility] [address] [place] [address] 03/27/2019 13:18:02 03/27/2019 13:28:51 Tuberculosis screening 121899672 Z11.1 [id number] Juanita hogan MD Main Office [address] [facility] [address] [place] [address] 03/30/2019 12:35:47 03/30/2019 13:32:06 Injury of great toe 326776471 S99.922A needs xrays, 10 weeks ago, minimal flexion Unintentio nal weight loss 649091231 R63.4 initially from stress from loss of , now eating better, maintainin g Pain of joint of hand 20 1331579 M25.542 better after OT Accidental ly struck by or against person or object in sports 404610550 W22.8XXA [id number] Maik Goldman MD [facility] [address] [address] [place] [address] 08/23/2019 13:14:26 08/23/2019 15:31:25 Cough 66652267 R05 cont otc meds (prn tyl, robitussin ) as dir, cont self-isola tion - reviewed guidelines and advised pt to check our website and will send to portal advised pt only to go to ER if significan t sob where may need to be admitted, o/w avoid going to hospital if at all possible Dyspnea 346705870 R06.00 rec prn alb Counseling 780632754 Z71 .9 Health advice, education or counseling done for COVID 19 Exposure t o viral disease 8635302977 99503 Z03.818 Diarrhea 67832632 R19.7 rec stay hydrated, rec brat diet [id number] Juanita hogan MD Main Office [address] [facility] [address] [place] [address] 09/05/2019 13:25:41 09/05/2019 14:32:49 Adult health examination 902687792 Z00.00 pr refuses pap, she does not want one here either, rest of screening to be done, pt to set upset up mammogram Bipolar disorder 6817950 4 F31.9 on meds by psychiatry , continue, mood doing pretty well despite loss of mother in law who lived with her Chronic neck pain 550028 9151 107 M54.2 better, gabapentin helps, Inadequate immune status 829186454 Z28.3 check labs for new job Disorder o f tendon of biceps 529523166 M67.929 concern for tear or rupture of left biceps tendon. pt has ortho appt next week with doc below, ice, [id number] Juanita hogan MD Telehe[facility] h [address] [facility] 207 [facility] [address] 03/10/2020 13:00:32 03/11/2020 13:25:43 Dysuria 65007034 R30.0 pt with dysuria, hx of kidney stones, I will have pt give a clean catch urine sample today and start empiric abx today, call if any fever, vomiting or worsening and pt will see urology for eval to see if recurrent kidney stone Blood in urine 00485593 R31.9 uti vs kidney stone, treat for UTI and refer to urology SARS-CoV-2 599708679 U07 .1 dx in 02/16, over 14 days and feels better, no fever, will get pt a return to work note, no repeat covid test needed and explained to pt, cleared for work History of calculus of kidney 402632032 Z87.442 ? recurrence , has seen urology in our building in the past [id number] Maik Goldman MD Main Office [address] [place] [address] 04/30/2020 15:20:52 04/30/2020 16:39:36 Myofascial pain 740104634 M79.10 rec. meloxicam qd, could use prn tyl, rec. moist heat prn, gentle stretching /massage (lee inside L shoulder blade), and prn m relaxer hs Pain of le ft shoulder joint 6995031249 8590855 M25.512 believe d/t combinatio n of both myofascial pain/spasm as well as RTC strain - will get ortho eval, see below [id number] Juanita hogan MD Main Office [address] [facility] [address] [facility] [place] [address] 10/31/2020 10:51:00 10/31/2020 11:44:19 Adult health examination 686250207 Z00.00 pr refuses pap, mammogram is utd overdue for colonoscop y she will arrange. 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 Screening for malignant neoplasm of colon 545300208 Z12.11 due for repeat due to polyps pt will arrange Osteoarthritis 857936961 M19.90 Bipolar disorder 5413941 4 F31.9 off of meds and she feels her mood is quite stable. PT is not followed by a counselor or psychiatri , feels stable and feels she does not need it. She had been in therapy at [facility] but her therapist changed over about 5 times, doing well without, knows to restart therapy and med provider if any early signs that her mood is not doing well. 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 Insomnia 674707206 G47.0 0 [id number] Juanita hogan MD Main Office [address] [facility] [address] [facility] [place] [address] 05/06/2021 09:35:17 05/06/2021 10:14:32 Insomnia 576042413 G47.00 trazodone work, uses as needed and doing meditation as well Pain of le ft shoulder joint 1150346536 9003461 M25.512 surgery 02/17, she is in PT gaining ROM Glenoid labrum tear 2022 05365 S43.432D surgery as above Bipolar disorder 3252270 4 F31.9 not on meds, mood is stable, doing meditation and spiritual work, able to work when she returns in 06/19 [id number] Joana Perales MD Main Office [address] [facility] [address] [facility] [place] [address] 10/13/2021 09:29:28 10/13/2021 10:10:50 Lumbago with sciatica 294567555 M54.40 Begin medrol dose pack as directed , muscle relaxants at HS, heat applicatio ns 10 minutes 2-3 times daily, back stretches BID. PT referral if pain persists. 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 no concerns, able to drive. refuses flu shot gets covid boosters. Osteoarthritis 402375173 M19.90 achy at times, tylenol Screening for malignant neoplasm of colon 314224245 Z12.11 due for repeat due to polyps pt will arrange Pain of ri ght shoulder joint 0862575539 5008820 M25.511 does not interfere with driving, will see ortho if not improving [id number] ESTEFANÍA NERI MD Main Office [address] [facility] [address] [place] [address] 04/05/2022 10:26:09 04/05/2022 11:00:33 Post-herpetic polyneuropathy 67944963 B02.23 - resent shingles infection treated however patient is still having a lot pain- started on gabapentin for 7 days- RTC if no improvemen t Herpes zoster 2216837 B0 2.9 - no new vesicles present- pt counselled on getting the vaccinatio n once the rash resolves- pt treated with valacyclov ir and prednisone [id number] Maik Goldman MD Main Office [address] [facility] 207 [place] [address] 08/19/2022 13:41:33 08/19/2022 14:41:36 Pain of right shoulder joint 5204685581 4654343 M25.511 suspicious for RTC strain/tea r - will get PT at pt request, pending see ortho 7.17.23 - no need for referral, pt declines xray at this time, trial of meloxicam - could use prn tyl as well [id number] Maik Goldman MD Main Office [address] [facility] [address] [place] [address] 10/13/2022 11:22:59 10/13/2022 13:12:15 Pain of right shoulder joint 7013725567 2256486 M25.511 suspicious for RTC strain/tea r - will get PT at pt request, pending see ortho 7.17.23 - no need for referral, pt declines xray at this time, trial of meloxicam - could use prn tyl as well 8.23 - seen by ortho - no sig help c benjamin injxn, had 7 sessions of PT, and also had xray that rec mri for further eval --- so will get mri to help coordinate her care / which will assist her in getting a new ortho in [place] - will attempt to get PT notes to help get mri get covered by her ins co [id number] Wali Champagne MD Main Office [address] [place] [address] 12/05/2023 11:08:06 12/05/2023 12:00:34 Influenza vaccination declined [id number] Z28.21 Pain of ri ght shoulder joint [id number] 4753964 M25.511 x2 months-wor sening right shoulder pain after moving furniture- limited ROM, localized sharp/burn ing pain-suspi cious for RTC strain/tea r-was following with [facility]; looking to see [facility]-xray was ordered which rec. MRI [id number] ESTEFANÍA NERI MD Main Office [address] [place] [address] 02/24/2024 10:47:09 02/24/2024 11:49:34 Adult health examination [id number] Z00.00 Health Maintenanc e FemaleA) Patient was counseled on healthy diet, exercise and nutrition due to BMI 26.8 B) ScreeningL ast Mammogram: start at age 50 stop at 74Date: 12/02/2023 Result: BIRADS-1Ne xt: 11/2024 Last Pap smear: start at age 21 to age 65Date: Results : ???Next: declines Last Colonoscop y: start at age 45-75Date: 7/20/2017R esult: tubular adenomaNex t: 3 years Last DEXA scan:Date: due at 65Result: ??? C) Vaccines:I nfluenza: declinesTd AP: 06/02/2012 -> orderedZos ter: orderedPCV 20: orderedCOV ID: 06/12/2020, 07/06/2020, 02/12/2021 , 07/13/2021 D) Routine blood work orderedE) Updated patient's history RTC in one year for annual exam or sooner if any acute complaints Bipolar disorder [id number] 4 F31.9 - pt did have treatment in the past however is not currently following anyone Screening for malignant neoplasm of cervix 952176217 Z12.4 - pt refuses Screening for malignant neoplasm of colon 859044896 Z12.11 Fatigue 00126474 R53.83 Hyperlipidemia 68638640 E78.5 HIV screening 917149971 Z11.4 Requires a tetanus booster 275949744 Z28.39 Administra tion of pneumococcal vaccine 01328927 Z23 Varicella vaccination 68 526313 Z23 Influenza vaccination declined 018181832 Z28.21 Pain of ri ght shoulder joint 1120772494 6903138 M25.511 - for shoulder replacemen t- c/w meloxicam 7.5mg QD as needed Numbness o f upper limb 227907982 R20.0 - located on the rigth wrist medial side -> ulnar distributi on (palm face up)- pt does have a history of cervical radiculopa thy therefore symptoms could be coming from there- pt would like to wait until she shoulder surgery before exploring possible cause in the neck- for next visit: EMG and x-ray of cervical spine Elevated blood-pressure reading without diagnosis of hypertension 018104025 R03.0 - BP today is 136/83 and on repeat 130/82- pt blood pressure could be elevated due to pain- RTC in 4 months for a recheck [id number] ESTEFANÍA NERI MD Main Office [address] [facility] [address] [facility] [place] [address] 06/22/2024 13:26:09 06/22/2024 13:56:56 Bipolar disorder 04687667 F31.9 - pt did have treatment in the past however is not currently following anyone Pain of ri ght shoulder joint [id number] 2466477 M25.511 - s/p shoulder replacemen t Elevated blood-pressure reading without diagnosis of hypertension 735858901 R03.0 - this is patient second visit elevated BP but she remains in pain- pt was told that at next visit if her BP is high we will need to start medicine- BP today is 142/82 and on repeat 142/81 Pain of knee region 1003 998293 M25.562 57158793 - started in April after patient twisted her knee- pt does have an appoitment with [facility] on July 19 therefore will hold imaging- concerned that there may be a tear- ordered diclofenac 75mg BID for 14 days an then as needed> pt advised to take medication with food- pt referred to physical therapy Cloudy urine 6392928 R82 .90 9010715 - will check UA [id number] ESTEFANÍA NERI MD Main Office [address] [place] [address] 10/16/2024 15:17:08 10/16/2024 15:59:18 Pain of knee region 5355599866 M25.562 62935947 - pt has been following with ortho -> last seen on 08/09, recommende d conservati ve treatment and physical therapy, no surgery at this time- started patient back on diclofenac 75mg BID as needed> pt advised to take medication with food> pt aware not to take any other NSAIDs- referred patient for a second opinion- has completed physical therapy Essential hypertension 62343705 I10 72125 - elevated- BP today was 164/87 and on repeat 143*89- patient is in pain therefore likely reason for elevated BP- however that being said patient as now had a total of 3 visits with elevated BP therefore will treat- started patient on amlodipine 5mg> did not chose FLORENTIN/ARB as patient is currently NSAIDs for pain- RTC in 3 months Pt counselled on:-Dietar y Approaches to Stop Hypertensi on (DASH) is an eating plan rich in fruits, vegetables , whole grains, fish, poultry, nuts, legumes, and low-fat dairy. These foods are high in rodrigues nutrients such as potassium, magnesium, calcium, fiber, and protein.-A dvised continued adherence to medication s and low salt diet - extensive counsellin g done regarding dietary habits.-En couraged regular aerobic exercise 30 min for 4-5 x week.-BP monitoring at home advised to bring log at every visit-Side -effects of high BP can cause Stroke, Heart attack and even d/w pt-D/w pt when to call 911 or reach out to Health care provider:> Think you are having a reaction to a medicine you are taking.>Huang ve headaches that keep coming back (recurring ).>Feel dizzy.>Hav e swelling in your ankles.>Huang ve trouble with your vision. Pain of elbow region 743 99185 M25.522 276242 - pain occurred after fall- also affected shoulder- decreased ROM- ordered x-ray of the elbow- patient referred to orthopedic s surgeon requested- for pain patient given diclofenac 75mg BID as needed and gabapentin 300mg as needed nightly> pt advised to take medication with food> pt aware not to take any other NSAIDs> pt aware not to take tylenol PM with gabapentin Pain of le ft shoulder region 1236551893 M25.512 11099375 - pain occurred after fall- also affected elbow- decreased ROM- ordered x-ray of the left shoulder- patient referred to orthopedic s surgeon requested- for pain patient given diclofenac 75mg BID as needed and gabapentin 300mg as needed nightly> pt advised to take medication with food> pt aware not to take any other NSAIDs> pt aware not to take tylenol PM with gabapentin Paresthesi a of upper limb 29561154 R20.0 R20.2 0679610023 - due to dull like pain going from shoulder all the way to wrist considerin g possibly that patient may injury higher at the level of the cervical neck> possible inflammati on of nerve causing radiating pain down the left arm- ordered x-ray of cervical pain- for pain patient given gabapentin 300mg as needed nightly> pt aware not to take tylenol PM with gabapentin History of fall 80673693 9 Z91.81 5565588 - affecting left shoulder, elbow and wrist> however pain worse at the shoulder and elbow [id number] Wali Champagne MD Main Office [address] [address] 12/17/2024 10:55:22 12/17/2024 11:43:34 Dysuria 31570276 R30.0 74111 pt notes of dysuria since this morning-no fever, chills, hematuria, pelvic pain-denie s of any associated symptoms-w ill order urine culture Chronic low back pain 27 8050593 M54.42 M54.41 G89.29 50745701 x10 years-was seeing [facility] and getting epidural injections for relief 10yrs ago>was advised by surgeon to have surgery, at the time pt declined-o n 12/01, pt was moving heavy boxes and a flare up of her low back pain reoccurred -with radiating neuropathy down bilateral legs-no red flag symptoms-h as been taking gabapentin for relief-sterling l refer to pain management per pt request-wi ll get an updated MRI of the lumbar spine and refer back to ortho Health Concerns Section Related Observation LastModified by Organization Detai ls LastModified Time None Recorded Concern Status LastModified by Organization Details LastModified Time None Recorded Advance Directives Directive Y: HCP signed on 07/16/16 Payers Insurance Date Sequence Insurance Name Policy Number Policy Rain Covered Member ID Rain Member ID Guarantor Name 06/22/2024 1 [employer] [facility] - DOS PRIOR TO 2022 - DUAL ELIGIBLE (MEDICARE REPLACEMENT/A DVANTAGE - HMO) Jean Moss [id number] Jean Moss 12/17/2024 2 [place] [employer] Jean Moss [id number] Jean Moss 01/03/2025 1 [facility] - DOS ON OR AFTER 2022 - DUAL ELIGIBLE - SNF OPTIONS AND ONE CARE (MEDICARE REPLACEMENT/A DVANTAGE - HMO) Jean Moss [id number] Jean Moss 06/22/2024 2 [place] [id number] Jean Moss [id number] Jean Moss 06/22/2024 1 [place] [employer] Jean Moss [id number] Jean Moss 06/22/2024 1 [place] [employer] [facility] [employer] (HMO) [id number] Jean Moss [id number] Jean Moss 01/03/2025 1 [place] Jean Moss [id number] Jean Moss Notes Date Note Type Note Provider Name and Address Organization Details Recorded Time 12/05/19 24 text/htm l Musculoskeletal PainReported by PatientHPIFor quality, patient reportsachingandsharp. For severity, patient reportsworsening. For location, patient reportspain is not radiating. For duration, patient reportspresent for 1-6 months. For timing, patient reportsintermittent. For context, patient reportsoveruseandunusual activity. For aggravating factors, patient reportsmovement/positioning. For associated symptoms, patient reportsno fever,no weak limbs,no tingling, andno numbness of the legs/feet.ROS as noted in the HPI Jean is a 58yr old F who presents for right shoulder pain x2 months. Reports she was seeing [facility] last year. 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 Reports of having increased right shoulder pain after moving furniture in her home about 2 months ago. Has limited ROM in the right shoulder and a sharp/burning sensation localized to the shoulder. Denies of any radiating pain, tingling, or muscle weakness. Has tried OTC ibuprofen, tylenol, ice, and lidocaine patches. DANIEL MONTELONGO [address] [address], [place], [address], [facility] 12/06/2023 20:18:06 02/24/20 24 text/htm l Generic HPI TemplateReported by Patient Jean Moss is a 59 year old F who presented to the clinic for the annual exam. Pt denies any emergency room visits or hospitalization during this time. Will be having shoulder replacement in Mar 2024. Complaints: right sided shoulder pain and numbness on the right wrist medial side Is not using ASA.OTC/Herbal supplements use: MMV and calcium Gynecologic HistoryPatient's last menstrual period was around 51No spottingSexually active: noContraception: menopauseDenies cyst, stds, fibroids, abnormal pap smears Obstetric HistoryGravida: 0Para: 0AB: 0Complications: Drug use: neverEtoh use: occasionaltobacco use: neverspf/derm: Dental: has been over a yearEye: does not see but reports no problems (has the start of cataract)Diet: regularActivity: none ESTEFANÍA NERI MD [address] [facility] [address], [place], [address], [facility] 02/24/2024 12:24:44 06/23/19 25 text/htm l Musculoskeletal PainReported by PatientHPIFor quality, patient reportsaching. For location, patient reportsleft knee. For severity, patient reportssame. For duration, patient reportspresent for 1-6 months. For timing, patient reportsconstant. For context, patient reportsunusual activity. For associated symptoms, patient reportsno fever,no weak limbs,no tingling, andno numbness of the legs/feet. For adl (activities of daily living), patient reportsimprove with medication. Jean Moss is a 59 year old F who presented to the clinic for follow-up on her chronic condition. Pt recently underwent right sided shoulder surgery. Pt is having left sided knee pain. Patient reports this is a chronic issue, present for one month. Pt mentions that on May 14 she was walking when she twisted her knee. - Swelling. Worse going up and down stairs, getting up from prolonged sitting. Has been taking OTC pain meds, mild relief. Previous PT. No previous injections.Doesn't use assisted devices. ESTEFANÍA NERI MD [address], [address], [facility] 06/22/2024 15:02:27 10/17/19 25 text/htm l Musculoskeletal PainReported by PatientHPIFor quality, patient reportsaching. For location, patient reportsleft knee. For severity, patient reportssame. For duration, patient reportspresent for 1-6 months. For timing, patient reportsconstant. For context, patient reportsunusual activity. For associated symptoms, patient reportsno fever,no weak limbs,no tingling, andno numbness of the legs/feet. For adl (activities of daily living), patient reportsimprove with medication.Pt is having left sided knee pain. Patient reports this is a chronic issue, present for two months. Pt mentions that on May 14 she was walking when she twisted her knee. - Swelling. Worse going up and down stairs, getting up from prolonged sitting. Has been taking OTC pain meds, mild relief. Previous PT. No previous injections. Patient does buckle over and has fallen due to her left knee. Doesn't use assisted devices. Jean Moss is a 59 year old F who presented to the clinic for follow-up on her blood pressure. Patient today is continues to complain of left sided knee pain and new left shoulder and elbow pain. Left shoulder and elbow pain: Patient tripped down two stairs on October 05 and her left shoulder, elbow and wrist. Most pain located at the elbow however has decreased ROM in shoulder and elbow. Pain radiates all the way to the wrist and dull in quality. Certain movements will cause sharp pain when rotating/twisting the arm. Has been taking tylenol PM and aleve 200mg TID. Used to see Dr. Kenny for her elbow in the past and is requesting to see them again. ESTEFANÍA NERI MD [address] [address], [place], [address], [facility] 10/16/2024 17:01:21 12/18/19 25 text/htm l Musculoskeletal PainReported by PatientHPIFor location, patient reportspain radiating to the legs bilateral. For quality, patient reportsachingandsharp. For associated symptoms, patient reportstinglingandnumbness of the legs/feetbut reportsno feverandno weak limbs. For severity, patient reportssame. For timing, patient reportsintermittent. For context, patient reportsoveruse. For alleviating factors, patient reportsrest. For aggravating factors, patient reportsmovement/positioning,be nding over, andtwisting. For adl (activities of daily living), patient reportsimprove with medication. For duration, (3 weeks).ROS as noted in the HPI Jean is a 59yr old F who presents for bilateral low back pain. Hx of lumbar pain. Pt reports she was moving heavy boxes on 12/01 and immediately noticed bilateral low back pain with radiating neuropathy to bilateral legs. Pt reports she has a hx of chronic lumbar pain, was seeing ortho and getting epidural injections 10yrs ago. Was advised to get surgery for a bulging disc- at the time pt declined. Has been taking gabapentin for relief. DANIEL MONTELONGO [address] [facility] [address], [place], [address], [facility] 12/17/2024 12:20:50 OBGyn Episode No OBEpisode recorded.
--- OUTSIDE RECORDS SUMMARY | 2025-01-07 14:44 | XMS_ITS | Data Portability ---
Author Organization DANIEL Weber [facility] Address [address] [place] [address] Care Team Providers Care Form Setter Steel Forms Name Role Phone RORYNATALIE CONTEHE Primary Care Provider Assessment No assessment recorded. Plan of Treatment Reminders Order Date Submit Date Provider Last Modified By Organization Details Last Modified Time Details Appointments None recorded. Lab None recorded. Referral None recorded. Procedures None recorded. Surgeries None recorded. Imaging None recorded. Medication Orders valacyclovi r 1 gram tablet 2022 023 [email or web address] [facility]/Pharmacy #[id number], [address] [place], [address], 17:51:26 prednisone 20 mg tablet 2022 023 ABRIL [facility]/Pharmacy #[id number], [address] [place], [address], 17:51:23 Patient TargetsNo targets recorded. Patient Instructions Encounter Date Encounter Id Patient Instructions Last Modified By Organization Details Last Modified Time 03/19/2022 [id number] hives: care instructions [email or web address] Not available 03/19/2022 17:51:21 Shingles (herpes zoster) causes pain and a blistered rash. The rash can appear anywhere on the body but will be on only one side of the body, the left or right. It will be in a band, a strip, or a small area. The pain can be very severe. Shingles can also cause tingling or itching in the area of the rash. The blisters scab over after a few days and heal in 2 to 4 weeks. Medicines can help you feel better and may help prevent more serious problems caused by shingles. Shingles is caused by the same virus that causes chickenpox. When you have chickenpox, the virus gets into your nerve roots and stays there (becomes dormant) long after you get over the chickenpox. If the virus becomes active again, it can cause shingles. How can you care for yourself at home? Take your medicines exactly as prescribed. Call your doctor or nurse advice line if you think you are having a problem with your medicine. Antiviral medicine helps you get better faster and may help prevent later problems. Try not to scratch or pick at the blisters. They will crust over and fall off on their own if you leave them alone. Put cool, wet cloths on the area to relieve pain and itching. You can also use calamine lotion. Try not to use so much lotion that it cakes and is hard to get off. Put cornstarch or baking soda on the sores to help dry them out so they heal faster. Do not use thick ointment, such as petroleum jelly, on the sores. This will keep them from drying and healing. To help remove loose crusts, soak them in tap water. This can help decrease oozing, and dry and soothe the skin. Take an tigm-hqu-qbkgfjy pain medicine, such as acetaminophen (Tylenol), ibuprofen (Advil, Motrin), or naproxen (Aleve). Read and follow all instructions on the label. Avoid close contact with people until the blisters have healed. It is very important for you to avoid contact with anyone who has never had chickenpox or the chickenpox vaccine. Young babies and anyone who is or has a hard time fighting infection (such as someone with HIV, diabetes, or cancer) is especially at risk. [email or web address] Not available 03/19/2022 17:51:20 Reason for Referral None Reported. Problems Name Problem SNOMED Code Status Onset Date Resolution Date Notes Provider Name and Address Organization Details Recorded Time Arthritis 7923163 Active 023 DANIEL Broussard [facility] 03/19/2022 17:18:28 Problem Notes None recorded. Procedures Surgical History Date Name Laterality Status Provider Name and Address Organization Details Recorded Time Shoulder joint surgery completed Lisa [facility] 03/19/2022 17:18:55 operative procedure on knee completed Lisa Cotto PA - [facility] 03/19/2022 17:19:05 Imaging Results None recorded. Procedure Notes None recorded. Medical Equipment None Reported. Allergies Allergen ID Allergen Name Allergen Category Reaction Reaction Severity Criticality Documentation Date Start Date Code Code System Note Provider Name and Address Organization Details Recorded Time 759928 tramadol medicatio n rash Not available low 03/19/2022 54252 RxNorm Lisa adhikari PA - [facility] 3 17:17:34 Medications Name Sig Start Date Stop Date Status Note LastModified by Organization Details LastModified Time cyclobenzap rine 10 mg tablet TAKE 1 TABLET BY MOUTH EVERY DAY NEEDED FOR SPASM, CAUTION DROWSINES S FOR 8 DAYS. 03/19 completed Not Available Not Available Not Available valacyclovi r 1 gram tablet Take 1 tablet every 8 hours by oral route with meals for 7 days. 2022 active Not Available Not Available Not Avai lable prednisone 20 mg tablet Take 2 tablets every day by oral route in the morning for 5 days. 2022 active Not Available Not Available Not Avai lable ibuprofen 600 mg tablet TAKE 1 TABLET BY MOUTH 3 TIMES DAILY (WITH MEALS) FOR 20 DAYS. active Not Available Not Available No t Available methylpredn isolone 4 mg tablets in a dose pack TAKE 6 TABLETS ON DAY 1 DIRECTED ON PACKAGE AND DECREASE BY 1 TAB EACH DAY FOR A TOTAL OF 6 DAYS 03/19 completed Not Available Not Available Not Available Tylenol active Not Available Not Avail able Not Available Gavilyte-C 240 gram-22.72 gram-6.72 gram-5.84 gram oral solution TAKE 8 OUNCE BY MOUTH DIRECTED 03/19 completed Not Available Not Available Not Available Vitals Date Recorded Body height Body mass index (BMI) Body weight Oxygen saturation Oxygen saturation in Arterial blood by Pulse oximetry Heart rate Respiratory rate Body temperature Systolic And Diastolic Provider Name and Address Organization Details Last Updated DateTime 3 165.1 cm 24.6 kg/m2 96651.6 7 g 99 % 99 % 94 /min 20 /min 98.6 [degF] 166/83 mm[Hg] Lisa Cotto PA - [facility] 17:20:01 Social History Question Answer Notes LastModified by [employer] Details LastModified Time Tobacco Smoking Status Never Smoker Lisa Kirti null, PA - [facility] 03/19/2022 17:18:38 Have You Had Direct Contact, Or Contact During Intimacy, With Monkeypox Rash, Scabs, Or Body Fluids From A Person With Monkeypox? No Information not available 03/19/2022 Have You Recently Traveled Abroad? No Information not available 03/19/2022 Sex: Unknown Functional Status Question Answer Note LastModified by [employer] Details LastModified Time How many times per week do you consume alcohol? 1-2 times per week Information not available 03/19/2022 Do you use any illicit or recreational drugs? No Information not available 03/19/2022 Do you or have you ever used any other forms of tobacco or nicotine? No Information not available 03/19/2022 What is your level of alcohol consumption? Occasional Information not available 03/19/2022 Mental Status None recorded. Family History Relationship Description Onset Age of this Age Resolved Age Notes LastModified by Organization Details LastModified Time Father No current problems or disability Not available 03/19 17:18:31 Mother No current problems or disability Not available 03/19 17:18:31 Medical History No medical history recorded. Gynecological HistoryNo gynecological history recorded. Obstetrics History GPAL:G 0 P 0 0 0 0 Immunizations Vaccine Type Date Status Note Provider Nam e and Address Organization Details Recorded Time COVID-19, mRNA, LNP-S, PF, 30 mcg/0.3 mL dose 02/12/2021 completed Lisa [place] null, PA - [facility] 03/19/2022 17:17:25 COVID-19, mRNA, LNP-S, PF, 30 mcg/0.3 mL dose 07/06/2020 completed Lisa [place] null, PA - [facility] 03/19/2022 17:17:25 COVID-19, mRNA, LNP-S, PF, 30 mcg/0.3 mL dose 06/12/2020 completed Lisa [place] null, PA - [facility] 03/19/2022 17:17:25 COVID-19, mRNA, LNP-S, PF, 30 mcg/0.3 mL dose, cathie-sucrose 07/13/2021 completed Lisa [place] null, PA - [facility] 03/19/2022 17:17:25 Tdap 06/02/2012 completed Lisa Kirti null, PA - [facility] 03/19/2022 17:17:25 Past Encounters Encounter ID Performer Location Encounter Start Date Encounter Closed Date Diagnosis/Indication Diagnosis SNOMED-CT Code Diagnosis ICD10 Code Diagnosis IMO Codes Diagnosis [place] [id number] [place] [address] [address] 03/19/2022 16:01:50 03/19/2022 17:54:35 Herpes zoster 4970848 B02.9 Health Concerns Section Related Observation LastModified by Organization Detai ls LastModified Time None Recorded Concern Status LastModified by Organization Details LastModified Time None Recorded Advance Directives Directive None Recorded Payers Insurance Date Sequence Insurance Name Policy Number Policy Rain Covered Member ID Rain Member ID Guarantor Name 03/26/2022 1 [facility] PRIOR TO 05/29/2022 (MEDICARE REPLACEMENT/ADV ANTAGE - HMO) Marylin Moss [id number] Marylin Moss 03/26/2022 1 [place] [employer] Marylin Moss [id number] Marylin Moss Notes Date Note Type Note Provider Name and Address Organization Details Recorded Time 03/19/2022 text/html UC Rash/Skin LesionReported by Patientvesicular rash x 10 days starting left side of neck and coming anteriorly left shoulder left upper chest. itchy , burning and painful also. Flynn Fosetr NP [address] [place], [address], PA - [facility] 03/19/2022 17:52:58 OBGyn Episode No OBEpisode recorded.
--- OUTSIDE RECORDS SUMMARY | 2025-01-07 14:44 | XMS_ITS | Clinical Summary ---
Author Organization [address] [place] [address] Address [address] [place] [address] Phone Care Team Providers Care Spiral Binder Name Role Phone Estefanía Neri MD Primary Care Provider Allergies Active Allergy Reactions Criticality Noted Date [...] Problem Noted Date Diagnosed Date Bipolar disorder ([facility] V24, [facility] V28) 10/29 Cervical radiculopathy 11/16/2024 Degeneration of lumbar intervertebral disc 11/16 Disorder of sacroiliac joint 11/16/2024 Hydronephrosis 11/16/2024 Left elbow pain 11/16/2024 Left shoulder pain 11/16/2024 Cubital tunnel syndrome on right 2022 Acute pain of right knee 04/19/2017 Brachial neuritis 06/04/2013 Overview (11/16/2024): IMPRESSION: PT IS GETTING PT AT [facility], WILL SEE DR FAJARDO AFTER AND MAY NEED INJECITON, PAIN THER KRYSTA ND OFF FOR 2 YEARS.; RECORDED 06/04/2013 2:19PM BY JUANITA MURILLO MD, OFFICE VISIT Depressive disorder 06/04/2013 Overview (11/16/2024): RECORDED 06/04/2013 1:32PM BY EDWIGE COX, OFFICE VISIT Encounters Date Type Department Care Team Description 11/26/2024 5:30 PM EDT Treatment [address] [address] Joshua Reveles, ICT SUPPORT ENGINEER Pain in left elbow (Primary Dx) 11/19/2024 3:30 PM EDT Treatment [address] [address] Geovanny Pritchett, ICT SUPPORT ENGINEER Pain in left elbow (Primary Dx) 11/16/2024 11:00 AM EDT Consult Orthopedic Surgery [address] [address] Nelly Kenny MD Left elbow pain; Left shoulder pain 11/12/2024 4:30 PM EDT Treatment [address] [address] Joshua Reveles, ICT SUPPORT ENGINEER Pain in left elbow (Primary Dx) 11/08/2024 1:00 PM EDT Treatment [address] [address] Joshua Reveles, ICT SUPPORT ENGINEER Pain in left elbow (Primary Dx) 11/05/2024 4:30 PM EDT Treatment [address] [address] Joshua Reveles, ICT SUPPORT ENGINEER Pain in left elbow (Primary Dx) 11/02/2024 8:30 AM EDT Evaluation [address] [phone] Adelina Pritchett, PT Pain in left elbow [...] 11/16/2024 11:09 AM EDT Plan of Treatment Health Maintenance Due Date Last Done Comments Colorectal Cancer Screening: Colonoscopy 1965 Hepatitis A Vaccines (1 of 2 - Risk 2-dose series) 02/17/1984 Hepatitis B Vaccines (1 of 3 - 19+ 3-dose series) 02/17/1984 Cervical Cancer Screening: Pap Smear 1986 Pneumococcal Vaccine: 50+ Years (1 of 1 - PCV) 2015 RSV Immunization Adult Patients (1 - Risk 50-74 years 1-dose series) 2015 Breast Cancer Screening 01/30/2022 01/31/2020 Cholesterol Screening (Lipid Panel) 01/31/2022 HIV Screening 01/31/2022 Hepatitis C Screening 01/31/2022 Medicare Annual Wellness Visit 01/31/2022 Social Influencers of Health Screening 01/31/2022 DTaP,Tdap,and Td Vaccines (2 - Td or Tdap) 06/02/2022 06/02/2012 Depression Screening 02/29/2024 Hypertension/CHF/CAD Annual BMP Blood Test 10/20/2024 COVID-19 Vaccine ( season) 2024 07/13/2021, 02/12/2021, 07/06/2020, Additional history exists Influenza Vaccine (#1) 2024 Zoster Vaccines Completed 09/22/2024, 06/26/2024 HIB Vaccines [...] Resul t from Last 3 Months Insurance MEDICARE Care Teams Spiral Binder Relationship Specialty Start Date End Date Estefanía Neri MD [address] [address] PCP - General Internal Medicine 10/22/24
--- OUTSIDE RECORDS SUMMARY | 2025-01-07 14:44 | XMS_ITS | Clinical Summary ---
Author Organization [facility] Address [address] [place] [address] Care Team Providers Care Logistical Engineer Name Role Phone Rena Cunningham MD Primary [...] age to complete this topic Care Teams Logistical Engineer Relationship Specialty Start Date End Date Rena Cunningham MD [address] [address] PCP - General Internal Medicine 04/11/17
== END 2025-01-07 13:34 | disposition home or self-care (01) ==
LOC: HO.HNS 12:36
PROVIDERS: PCP Student in an Organized Health Care Education/Training Program; Visit Provider Physician Assistant
DX: M54.40 Lumbago with sciatica, unspecified side (principal)
CPT/HCPCS: 99204

== ENCOUNTER → 2025-01-07 12:36 | Outpatient (BNVA) | payer OTHER, SELFPAY | PROVIDERS: PCP Student in an Organized Health Care Education/Training Program; Visit Provider Physician Assistant | DX: M54.41 Lumbago with sciatica, right side (principal) | CPT/HCPCS: 99202 ==

== ENCOUNTER 2025-01-11 14:36 | Outpatient (AMB) | payer OTHER, SELFPAY ==
--- NOTE | 2025-01-11 14:57 | A.OFFVIS_ITS ---
Vital Signs 01/11/25 15:00 01/11/25 15:01 Height 5 ft 5 in 5 ft 5 in Weight 163 lb 6 oz 163 lb 6 oz BMI 27.2 27.2 BP 130/75 Blood Pressure Location Lt brachial Position Sitting Pulse 89 Pulse Source Pulse Oximeter Pulse Oximetry (%) 100 Oxygen Delivery Method Room Air Intake Visit Reasons: CHRONIC BILATERAL LOW BACK PAIN Intake Note: Pain today 09/06 Environmental Safety Specialist Required: No Accompanied by: Self / Same As Patient Allergies tramadol (From ULTRA) Allergy (Intermediate, Verified 01/11/25 15:00) RASH FRUIT, SKINS Allergy (Intermediate, Uncoded 09/27/24 13:27) THROAT ITCHES HPI Comments Details: The patient is a 59-year-old female presenting with chronic back pain and sciatica. The back pain has been persistent and worsened after moving heavy boxes on December 01, leading to severe shooting pain down the right leg. The pain is described as burning and affects the right buttock and lateral thigh, but does not extend below the knee. The patient has a history of osteoarthritis and underwent right shoulder replacement surgery in March. She has been managing her pain with gabapentin, Tylenol, and diclofenac sodium, which provide relief when resting. She is allergic to tramadol and has declined back surgery in the past, opting instead for epidural injections in 2015. The patient reports that increased physical activity exacerbates her pain, raising it to a level of 7, while rest alleviates it. She has a history of constipation, which she associates with her back injury, and has been using a stool softener with limited success. She denies any history of gastrointestinal problems and is not diabetic. - Onset: Pain began after moving heavy boxes on December 01. - Quality: Described as severe, shooting, throbbing, pulsing, dull, hurting, stabbing, aching, sharp and burning. - Location: Right buttock and lateral thigh, not extending below the knee. - Exacerbating factors: Physical activities such as chores, lifting, twisting and shopping. - Relieving factors: Rest and medication; partial relief with gabapentin, NSAIDs, Tylenol, cyclobenzaprine. - Interference: Affects sleep and daily activities. - Affect: Pain impacts sleep and daily activities. - Analgesia: Currently using gabapentin, Tylenol, and diclofenac sodium. - Adverse Effects: Allergic to tramadol. - Activities of Daily Living: Pain exacerbated by chores and shopping, relieved by rest. - Aberrant Drug Related Behaviors: None reported. 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 - Gastrointestinal: Reports constipation, denies gastrointestinal problems. - Neurological: Denies leg pain on the left side during physical examination. Denies bladder or bowel dysfunction or saddle anesthesia. All systems reviewed & are unremarkable except as noted in HPI and below Physical Exam Vital Signs: Last Vital Signs Pulse 89 01/11/25 15:01 BP 130/75 01/11/25 15:01 Pulse Ox 100 01/11/25 15:01 Oxygen Delivery Method Room Air 01/11/25 15:01 BMI result Body Mass Index 27.2 General: Appears afebrile. Alert and oriented. Mood and affect appropriate. Follows and participates in conversation appropriately. Respiratory effort is unlabored. No cough. Able to transition from sit to stand unassisted. Ambulates with normal heel strike and toe off on the left, increased back and leg pain on the right with heel/toe standing. General: Yes no CVA tenderness Back/Spine/Pelvis Other: Limited lumbar ROM due to pain. Lumbar flexion and bending forward reproduces moderate pain, lumbar extension reproduces mild to moderate pain. Demonstrates 5/5 strength of quadriceps bilaterally as well as flexion/dorsiflexion of bilateral feet against resistance. 2+ pedal pulses bilaterally. Straight leg rise with dorsiflexion positive on the right. +2 patellar and achilles reflexes bilaterally. Facet loading test positive bilaterally. Girma?s, Pelvic compression and Stinchfield tests are negative bilaterally. No groin pain with I/E hip rotations. Valsalva maneuver negative. Back: no CVA tenderness Cervical Spine: cervical ROM normal, cervical muscular tenderness, No Cervical spine scars present and No Cervical spine tenderness Thoracic/Lumbar Spine: thoracic and lumbar spine normal to inspection, No Thoracic/lumbar spine scar(s), Lasegue's sign positive on the right and localized, pain with thoraco-lumbar ROM, thoraco-lumbar ROM limited, No thoracic spinal tenderness and lumbar spinal tenderness at L4 and at L5 Sacroiliac joints: bilaterally nontender Results Reviewed Results Reviewed: Pending lumbar MRI report from [facility] [place] Assessment & Plan Assessment & Plan (1) Lumbago of lumbar region with sciatica: Code(s): M54.40 - Lumbago with sciatica, unspecified side Category: Medical (2) Lumbosacral spondylosis: Code(s): M47.817 - Spondylosis without myelopathy or radiculopathy, lumbosacral region Category: Medical (3) Acute exacerbation of chronic low back pain: Code(s): M54.50 - Low back pain, unspecified; G89.29 - Other chronic pain Category: Medical Plan The plan includes initiating physical therapy as the first step in managing the patient's acute on chronic back pain and sciatica. If physical therapy does not alleviate symptoms, the next step would be to consider epidural steroid injections for radicular pain and diagnostic injections for axial low back pain. The patient will be provided with a Medrol pack to manage acute pain exacerbations, and she is advised to follow up after completing physical therapy. If symptoms persist post-therapy, further evaluation for injections or other interventions will be conducted. All questions and concerns have been answered and patient agreed with the john atment plan. Follow up after PT and sooner as needed. Patient was informed and verbally consented to the use of an ambient scribe for clinic note documentation during this visit. Orders: Orders PT Evaluation and Treatment 01/11/25 G89.29 - Other chronic pain, M47.817 - Spondylosis without myelopathy or radiculopathy, lumbosacral region, M54.40 - Lumbago with sciatica, unspecified side, M54.50 - Low back pain, unspecified Medications: New methylprednisolone (Medrol (Tyrone)) PO PER PKG DIR 21 ea 0RF M47.817 - Spondylosis without myelopathy or radiculopathy, lumbosacral region, M54.40 - Anu mbago with sciatica, unspecified side bisacodyl (Laxative (bisacodyl)) 5 mg PO BEDTIME 30 tabs 0RF constipation 30 days K59.00 - Constipation, unspecified Coding Level of Care Code New Pt Level 4 (30406) Diagnoses Lumbago of lumbar region with sciatica M54.40 Lumbosacral spondylosis M47.817 Acute exacerbation of chronic low back pain M54.50; G89.29
[2025-01-11 15:00] VITALS: BMI 27.2
[2025-01-11 15:01] VITALS: BP 130/75; PULSE 89; O2SAT 100; BMI 27.2
--- OUTSIDE RECORDS SUMMARY | 2025-01-11 21:43 | XMS_ITS | Clinical Summary ---
Author Organization [facility] Address [address] [place] [address] Care Team Providers Care Nematology Teacher Name Role Phone Rena Cunningham MD Primary [...] age to complete this topic Care Teams Nematology Teacher Relationship Specialty Start Date End Date Rena Cunningham MD [address] [address] PCP - General Internal Medicine 04/11/17
--- OUTSIDE RECORDS SUMMARY | 2025-01-11 21:43 | XMS_ITS | Clinical Summary ---
Author Organization [address] [place] [address] Address [address] [place] [address] Phone Care Team Providers Care General Office Worker Name Role Phone Estefanía Neri MD [...] Problem Noted Date Diagnosed Date Bipolar disorder ([facility] V24, [facility] V28) 10/29 Cervical radiculopathy 11/16/2024 Degeneration of lumbar intervertebral disc 11/16 Disorder of sacroiliac joint 11/16/2024 Hydronephrosis 11/16/2024 Left elbow pain 11/16/2024 Left shoulder pain 11/16/2024 Cubital tunnel syndrome on right 2022 Acute pain of right knee 04/19/2017 Brachial neuritis 06/04/2013 Overview (11/16/2024): IMPRESSION: PT IS GETTING PT AT [facility], WILL SEE DR FAJARDO AFTER AND MAY NEED INJECITON, PAIN THER KRYSTA ND OFF FOR 2 YEARS.; RECORDED 06/04/2013 2:19PM BY JUANITA UMRILLO MD, OFFICE VISIT Depressive disorder 06/04/2013 Overview (11/16/2024): RECORDED 06/04/2013 1:32PM BY EDWIGE COX, OFFICE VISIT Encounters Date Type Department Care Team Description 11/26/2024 5:30 PM EDT Treatment [address] [address] Joshua Reveles, MEAT HOSTESS Pain in left elbow (Primary Dx) 11/19/2024 3:30 PM EDT Treatment [address] [address] Geovanny Pritchett, MEAT HOSTESS Pain in left elbow (Primary Dx) 11/16/2024 11:00 AM EDT Consult Orthopedic Surgery [address] [address] Nelly Kenny MD Left elbow pain; Left shoulder pain 11/12/2024 4:30 PM EDT Treatment [address] [address] Joshua Reveles, MEAT HOSTESS Pain in left elbow (Primary Dx) 11/08/2024 1:00 PM EDT Treatment [address] [address] Joshua Reveles, MEAT HOSTESS Pain in left elbow (Primary Dx) 11/05/2024 4:30 PM EDT Treatment [address] [address] Joshua Reveles, MEAT HOSTESS Pain in left elbow (Primary Dx) 11/02/2024 8:30 AM EDT Evaluation [address] [phone] Adelina Pritchett, PT Pain in left elbow [...] Last 3 Months Insurance MEDICARE Care Teams General Office Worker Relationship Specialty Start Date End Date Estefanía Neri MD [address] [address] PCP - General Internal Medicine 10/22/24
--- OUTSIDE RECORDS SUMMARY | 2025-01-11 21:44 | XMS_ITS | Patient Health Record ---
Author [facility] Address [address] [place] [address] Care Team Providers Care Oil Paint Shader Name Role Phone Julissa Atkinson MD, Rena Preston Primary Care Prov ider Unavailable Angel Leos Unavailable [phone] Allergies Allergen (clinical drug ingredient) Drug/Non Drug [...] primary osteoarthritis of the ankle and/or foot ([id number]) Primary osteoarthrit is, left ankle and foot (M19.072) Active confirmed Plan Of Treatment Pending Test Test Name Order Date , [id number]/INJECT, JOINT/BURSA 0 06/26/2019 Insurance Providers Payer Name Payer Address Payer Phone Subscriber Number Group Number Insured Name Patient Relationship to Insured Coverage Start Date Coverage End Date [facility] [employer] Claims [address] [place] [phone] [id number] Marylin Moss Self - patient is the insured Medical (General) History Medical History History ICD Code Arthritis Back,Hip,and Knee pain Sciatica Surgical History Surgery Date(Month/Year) right knee osteotomy 06/2014
--- OUTSIDE RECORDS SUMMARY | 2025-01-11 21:44 | XMS_ITS | Data Portability ---
Author Organization [facility], Main Office Address [address] [place] [address] Care Team Providers Care Winder Tender Name Role Phone RICH FRITZ Last Scourer LESTER RIOS Orthopedic Surgeon WALTER MACHADO Urologist FAIZAN RAYO Orthopedic Surgeon ESTEFANÍA NERI Primary Care Provider SAMI GRIMALDO Orthopedic Surgeon GWEN KENNY Referring Provider Assessment Encounter Date Assessment Date Assessment LastModified [...] Lab cult ure, urin e 2024 025 CARLOS [facility] (Centralized Electronic Ordering - All Locations), Patient Can Go To The Location Of Their Choice, [id number] 12/18/2024 16:06:56 urin dejah is comp lete , refl ex cult ure 2024 025 CARLOS [facility], [address], [place], [address], 06/28/2024 12:07:13 lipi d lissette l, seru m 2023 024 CARLOS [facility], [address], [place], [address], 06/26/2024 10:07:48 CBC w/ auto diff 2023 024 CARLOS [facility], [address], [place], [address], 06/26/2024 10:07:44 BMP, seru m or plas ma 2023 024 CARLOS [facility], [address], [place], [address], 06/26/2024 10:07:46 TSH, ultr a-se nsit chioma, seru m 2023 024 CARLOS [facility], [address], [place], [address], 06/26/2024 10:07:50 HIV 1 + 2, mean ingf ul use set 2023 024 [facility] Patient Can Go To The Location Of Their Choice, [id number] 06/26/2024 10:07:49 Referral pain honey geme nt refe rral - >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 Most rece ntly had a flar e up of wors enin g low back pain with bila pastor l scia mary . 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 Rece nt flar e up trig gere d by lift ing heav y boxe s. was gett ing inje ctio ns year s ago and advi sed surg enma back in 2016 , decl ined then . Pt look ing to see spec iali st for surg ical cons ult. 2024 025 [email or web address] [facility], [address], [place], [address], 12/17/2024 12:45:09 orth oped ic surg travis refe rral 2024 025 [email or web address] Kali Meredith MD, [address] [facility], [address], [place], [address], 10/23/2024 15:48:13 orth oped ic surg travis refe rral 2024 025 [email or web address] Kenny MD, [address], [address], [place], [address], 10/17/2024 08:45:34 orth oped ic surg travis refe rral - plea se prin t for cheyanne ent 2024 025 [email or web address] [facility], [address], [address], [place], [address], 06/25/2024 10:34:03 phys ical ther apis t refe rral 2024 025 [email or web address] Not available 06/22/2024 14:14:46 gyne colo gist refe rral 2023 024 [email or web address] Not available 08/22/2024 10:40:19 phys ical ther apis t refe rral - DX: Righ t shou lder pain , ? RTC stra in/t ear eval & any t 2-3x /wk x 4 wks 2023 024 [email or web address] [facility] , [address] [place] [address] , [address], [place], [address], 06/04/2024 09:27:31 orth oped ic surg travis refe rral - hx of melissa re arth riti s. saw [facility] 09/27 3 for same cc. 2023 024 bobbi [facility] ([facility]), [address] [place], [address], 01/13/2024 10:32:31 Procedures colo nosc opy scre enin g (PRO C) 2023 024 [email or web address] [facility], [address] [place], [address], 08/27/2024 10:50:04 Surgeries None apple rded . 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 last a MRI in 2015 . note of any wors enin g disc abno rmal itie s. 2024 025 [email or web address] [facility] ([facility]), [address], [place], [address], 12/18/2024 15:08:46 XR, shou lder , 2 or more view - left side 2024 025 CARLOS Not available 10/16/2024 17:03:53 XR, elbo w, 3 or more view - left 2024 025 CARLOS Not available 10/17/2024 18:15:58 XR, cerv ical spin e, 2 or 3 view 2024 025 [email or web address] Not available 11/01/2024 12:53:35 XR, shou lder , 2 or more view - righ t shou lder pain 2023 024 [facility], [address] [place], [address], 12/05/2023 12:52:08 MRI, radhau lder , w/o cont rast - righ t suzi cisneroser . hx of arth riti s. xray reve aled Lar ge bony exos tosi s vers us loos e body in the axil allan port ion of the shou lder 2023 024 bobbi [facility], [address] [place], [address], 12/20/2023 08:38:36 Medication Orders taryn pent in 300 mg caps ule 2024 025 [id number], [address] [place], [address], 12/17/2024 14:04:18 dicl ofen ac sodi um 75 mg tabl et,d elay ed rele ase 2024 025 [id number], [address] [place], [address], 10/16/2024 15:56:09 taryn pent in 300 mg caps ule 2024 025 [id number], [address] [place], [address], 10/16/2024 15:56:10 amlo dipi ne 5 mg tabl et 2024 025 [id number], [address] [place], [address], 10/16/2024 15:56:09 dicl ofen ac sodi um 75 mg tabl et,d elay ed rele ase 2024 025 [id number], [address] [place], [address], 10/16/2024 15:33:10 new xica m 7.5 mg tabl et 2023 024 [id number], [address], [place], [address], 06/22/2024 13:46:10 Patient TargetsNo targets recorded. Patient Instructions Encounter Date Encounter Id Patient Instructions Last Modified By Organization Details Last Modified Time 12/05/2023 [id number] shoulder pain: care instructions Not available 12/05/2023 11:58:51 A healthy lifestyle: care instructions Not available 12/05/2023 11:58:51 rotator cuff injury: care instructions Not available 12/05/2023 11:58:51 rotator cuff: exercises Not available 12/05/2023 11:58:51 shoulder stretches: exercises Not available 12/05/2023 11:58:51 02/24/2024 [id number] bipolar disorder : care instructions Not available 02/24/2024 11:27:13 learning about mood disorders Not available 02/24/2024 11:27:14 HIV testing: car e instructions Not available 02/24/2024 11:27:13 06/22/2024 [id number] bipolar disorder : care instructions Not available 06/22/2024 13:48:51 learning about mood disorders Not available 06/22/2024 13:48:51 10/16/2024 [id number] high blood pressure: care instructions Not available 10/16/2024 15:56:06 learning about high blood pressure Not available 10/16/2024 15:56:06 12/17/2024 [id number] painful urinatio n (dysuria): care instructions Not available 12/17/2024 11:39:21 Reason for Referral Physical Therapist Referral for Pain of right shoulder joint DX: Right shoulder pain, ? RTC strain/tear eval & treat 2-3x/wk x 4 wks Referring Physician: Tiki Bond, Family Medicine, Encounter Date: 12/05/2023 Orthopedic Surgeon Referral for Pain of right shoulder joint hx of severe arthritis. saw [facility] 09/27/2022 for same cc. Referring Physician: Family Blayne Montelongo, Encounter Date: 12/05/2023 Exchange Underwriting Consultant Referral for Sc reening for malignant neoplasm of cervix Referring Physician: Estefanía Neri [facility] Blayne, Encounter Date: 02/24/2024 Orthopedic Surgeon Referral for Pain of knee region please print for patient Referring Physician: Family Blayne Sewell, Encounter Date: 06/22/2024 Physical Therapist Referral for Pain of knee region Referring Physician: Estefanía Neri [facility] Blayne, Encounter Date: 06/22/2024 Orthopedic Surgeon Referral for Pain of knee region Referring Physician: Estefanía Neri [facility] Blayne, Encounter Date: 10/16/2024 Orthopedic Surgeon Referral for Pain of elbow region Referring Physician: Estefanía Neri [facility] Blayne, Encounter Date: 10/16/2024 Pain Management Referral [...] for surgical consult. Referring Physician: Tiki Bond [facility] Blayne, Encounter Date: 12/17/2024 Results Created Date Observation Date Name Description Value Unit Range Abnormal Flag Note LastModifiedBy Organization Detail LastModifiedTime 06/26/1906/25/2024 CBC WITH DIFFE RENTI AL/PL ATELE T WBC 7.4 x10e3 /uL 3.4-10 .8 normal Not Available [facility] ([facility]) [address], [place], [address], 06/26/2024 10:07:44 06/26/1906/25/2024 CBC WITH DIFFE RENTI AL/PL ATELE T RBC 4.51 x10e6 /uL 3.77-5 .28 normal Not Available [facility] ([facility]) [address] [place], [address], 06/26/2024 10:07:44 06/26/19 25 06/25/2024 CBC WITH DIFFE RENTI AL/PL ATELE T hemoglobin 14.3 g/dL 11.1-1 5.9 normal Not Available [facility] ([facility]) [address] [place], [address], 06/26/2024 10:07:44 06/26/1906/25/2024 CBC WITH DIFFE RENTI AL/PL ATELE T hematocrit 42.8 % 34.0-4 6.6 normal Not Available [facility] ([facility]) [address] [place], [address], 06/26/2024 10:07:44 06/26/19 25 06/25/2024 CBC WITH DIFFE RENTI AL/PL ATELE T MCV 95 fL 79-97 normal Not Available [facility] ([facility]) [address] [place], [address], 06/26/2024 10:07:44 06/26/19 25 06/25/2024 CBC WITH DIFFE RENTI AL/PL ATELE T MCH 31.7 pg 26.6-3 3.0 normal Not Available [facility] ([facility]) [address] [place], [address], 06/26/2024 10:07:44 06/26/19 25 06/25/2024 CBC WITH DIFFE RENTI AL/PL ATELE T MCHC 33.4 g/dL 31.5-3 5.7 normal Not Available [facility] ([facility]) [address] [place], [address], 06/26/2024 10:07:44 06/26/19 25 06/25/2024 CBC WITH DIFFE RENTI AL/PL ATELE T RDW 12.0 % 11.7-1 5.4 Not Available [facility] ([facility]) [address] [facility], [place], [address], 06/26/2024 10:07:44 06/26/19 25 06/25/2024 CBC WITH DIFFE RENTI AL/PL ATELE T platelets 292 x10e3 /uL 150-45 0 normal Not Available [facility] ([facility]) [address] [facility], [place], [address], 06/26/2024 10:07:44 06/26/19 25 06/25/2024 CBC WITH DIFFE RENTI AL/PL ATELE T neutrophils 56 % not estab. normal Not Available [facility] ([facility]) [address] [facility], [place], [address], 06/26/2024 10:07:44 06/26/19 25 06/25/2024 CBC WITH DIFFE RENTI AL/PL ATELE T lymphs 32 % not estab. normal Not Available [facility] ([facility]) [address] [facility], [place], [address], 06/26/2024 10:07:44 06/26/19 25 06/25/2024 CBC WITH DIFFE RENTI AL/PL ATELE T monocytes 9 % not estab. normal Not Available [facility] ([facility]) [address] [facility], [place], [address], 06/26/2024 10:07:44 06/26/19 25 06/25/2024 CBC WITH DIFFE RENTI AL/PL ATELE T eos 2 % not estab. normal Not Available [facility] ([facility]) [address], [place], [address], 06/26/2024 10:07:44 06/26/19 25 06/25/2024 CBC WITH DIFFE RENTI AL/PL ATELE T basos 1 % not estab. normal Not Available [facility] ([facility]) [address] [place], [address], 06/26/2024 10:07:44 06/26/19 25 06/25/2024 CBC WITH DIFFE RENTI AL/PL ATELE T immature cells SIDE SAWYER Not Available [facility] ([facility]) [address] [facility], [place], [address], 06/26/2024 10:07:44 06/26/19 25 06/25/2024 CBC WITH DIFFE RENTI AL/PL ATELE T neutrophils (absolute) 4.2 x10e3 /uL 1.4-7. 0 normal Not Available [facility] ([facility]) [address] [facility], [place], [address], 06/26/2024 10:07:44 06/26/19 25 06/25/2024 CBC WITH DIFFE RENTI AL/PL ATELE T lymphs (absolute) 2.3 x10e3 /uL 0.7-3. 1 normal Not Available [facility] ([facility]) [address] [place], [address], 06/26/2024 10:07:44 06/26/19 25 06/25/2024 CBC WITH DIFFE RENTI AL/PL ATELE T monocytes(ab solute) 0.7 x10e3 /uL 0.1-0. 9 normal Not Available [facility] ([facility]) [address] [place], [address], 06/26/2024 10:07:44 06/26/19 25 06/25/2024 CBC WITH DIFFE RENTI AL/PL ATELE T eos (absolute) 0.1 x10e3 /uL 0.0-0. 4 normal Not Available [facility] ([facility]) [address] [place], [address], 06/26/2024 10:07:44 06/26/19 25 06/25/2024 CBC WITH DIFFE RENTI AL/PL ATELE T baso (absolute) 0.1 x10e3 /uL 0.0-0. 2 normal Not Available [facility] ([facility]) [address] [place], [address], 06/26/2024 10:07:44 06/26/19 25 06/25/2024 CBC WITH DIFFE RENTI AL/PL ATELE T immature granulocytes 0 % not estab. Not Available [facility] ([facility]) [address] [facility], [place], [address], 06/26/2024 10:07:44 06/26/19 25 06/25/2024 CBC WITH DIFFE RENTI AL/PL ATELE T immature grans (abs) 0.0 x10e3 /uL 0.0-0. 1 Not Available [facility] ([facility]) [address] [place], [address], 06/26/2024 10:07:44 06/26/19 25 06/25/2024 CBC WITH DIFFE RENTI AL/PL ATELE T NRBC SIDE SAWYER Not Available [facility] ([facility]) [address] [place], [address], 06/26/2024 10:07:44 06/26/19 25 06/25/2024 CBC WITH DIFFE RENTI AL/PL ATELE T hematology comments: SIDE SAWYER Not Available [facility] ([facility]) [address] [place], [address], 06/26/2024 10:07:44 06/26/19 25 06/26/2024 BASIC METAB OLIC PANEL (8) glucose 88 mg/dL 70-99 normal Not Available [facility] ([facility]) [address] [place], [address], 06/26/2024 10:07:46 06/26/19 25 06/26/2024 BASIC METAB OLIC PANEL (8) BUN 18 mg/dL 6-24 normal Not Available [facility] ([facility]) [address] [place], [address], 06/26/2024 10:07:46 06/26/19 25 06/26/2024 BASIC METAB OLIC PANEL (8) creatinine 0.96 mg/dL 0.57-1 .00 normal Not Available [facility] ([facility]) [address] [place], [address], 06/26/2024 10:07:46 06/26/19 25 06/26/2024 BASIC METAB OLIC PANEL (8) eGFR 68 mL/mi n/1.7 3 >59 normal Not Available [facility] ([facility]) [address] [facility] [place], [address], 06/26/2024 10:07:46 06/26/19 25 06/26/2024 BASIC METAB OLIC PANEL (8) BUN/creatini ne ratio 19 9-23 normal Not Available [facility] ([facility]) [address] [facility] [place], [address], 06/26/2024 10:07:46 06/26/19 25 06/26/2024 BASIC METAB OLIC PANEL (8) sodium 139 mmol/ L 134-14 4 normal Not Available [facility] ([facility]) [address] [facility] [place], [address], 06/26/2024 10:07:46 06/26/19 25 06/26/2024 BASIC METAB OLIC PANEL (8) potassium 4.4 mmol/ L 3.5-5. 2 normal Not Available [facility] ([facility]) [address] [facility] [place], [address], 06/26/2024 10:07:46 06/26/19 25 06/26/2024 BASIC METAB OLIC PANEL (8) chloride 100 mmol/ L 96-106 normal Not Available [facility] ([facility]) [address] [facility] [place], [address], 06/26/2024 10:07:46 06/26/19 25 06/26/2024 BASIC METAB OLIC PANEL (8) carbon dioxide, total 20 mmol/ L 20-29 normal Not Available [facility] ([facility]) [address] [place], [address], 06/26/2024 10:07:46 06/26/19 25 06/26/2024 BASIC METAB OLIC PANEL (8) calcium 9.8 mg/dL 8.7-10 .2 normal Not Available [facility] ([facility]) [address] [place], [address], 06/26/2024 10:07:46 06/26/19 25 06/26/2024 LIPID PANEL cholesterol, total 261 mg/dL 100-19 9 above high normal Not Available [facility] ([facility]) [address] [place], [address], 06/26/2024 10:07:48 06/26/19 25 06/26/2024 LIPID PANEL triglyceride s 117 mg/dL 0-149 normal Not Available [facility] ([facility]) [address] [place], [address], 06/26/2024 10:07:48 06/26/19 25 06/26/2024 LIPID PANEL HDL cholesterol 69 mg/dL >39 normal Not Available [facility]) [address] [place], [address], 06/26/2024 10:07:48 06/26/19 25 06/26/2024 LIPID PANEL VLDL cholesterol ankur 20 mg/dL 5-40 Not Available [facility] ([facility]) [address] [place], [address], 06/26/2024 10:07:48 06/26/19 25 06/26/2024 LIPID PANEL LDL chol calc ([facility]) 172 mg/dL 0-99 above high normal Not Available [facility] ([facility]) [address] [place], [address], 06/26/2024 10:07:48 06/26/19 25 06/26/2024 LIPID PANEL LDL calc comment: SIDE SAWYER Not Available [facility] ([facility]) [address] [facility], [place], [address], 06/26/2024 10:07:48 06/26/19 25 06/26/2024 HIV AB/P2 4 AG WITH REFLE X HIV Ab/P24 Ag screen Non Reacti ve non reacti ve HIV-1 /HIV- 2 antib odies and HIV-1 p24 antig en were NOT detec michael. There is no labor atory evide nce of HIV infec tion. HIV Negat chioma Not Available [facility] ([facility]) [address] [place], [address], 06/26/2024 10:07:49 06/26/19 25 06/26/2024 TSH RFX ON ABNOR MAL TO FREE T4 TSH 2.120 uIU/m L 0.450- 4.500 normal Not Available [facility] ([facility]) [address] [place], [address], 06/26/2024 10:07:50 06/26/19 25 06/27/2024 QUANT IFERO N-TB GOLD PLUS quantiferon incubation Incuba tion perfor med. Not Available [facility] ([facility]) [address] [place], [address], 06/28/2024 08:12:07 06/26/19 25 06/27/2024 QUANT IFERO [...] ol for the test. Not Available [facility] ([facility]) [address] [place], [address], 06/28/2024 08:12:07 06/26/19 25 06/28/2024 QUANT IFERO N-TB GOLD PLUS quantiferon TB1 Ag value 0.06 IU/mL Not Available [facility] ([facility]) [address] [place], [address], 06/28/2024 08:12:07 06/26/1906/28/2024 QUANT IFERO N-TB GOLD PLUS quantiferon TB2 Ag value 0.04 IU/mL Not Available [facility] ([facility]) [address] [place], [address], 06/28/2024 08:12:07 06/26/19 25 06/28/2024 QUANT IFERO N-TB GOLD PLUS quantiferon nil value 0.03 IU/mL Not Available [facility] ([facility]) [address] [place], [address], 06/28/2024 08:12:07 06/26/19 25 06/28/2024 QUANT IFERO N-TB GOLD PLUS quantiferon mitogen value >10.00 IU/mL Not Available [facility] ([facility]) [address] [place], [address], 06/28/2024 08:12:07 06/26/19 25 06/28/2024 QUANT IFERO [...] y metho dolog y Not Available [facility] ([facility]) [address] [facility], [place], [address], 06/28/2024 08:12:07 06/26/19 25 06/25/2024 UA WITH CULTU RE REFLE X specific gravity 1.017 1.005- 1.030 normal Not Available [facility] ([facility]) [address] [facility], [place], [address], 06/28/2024 12:07:13 06/26/19 25 06/25/2024 UA WITH CULTU RE REFLE X pH 6.0 5.0-7. 5 normal Not Available [facility] ([facility]) [address] [facility], [place], [address], 06/28/2024 12:07:13 06/26/19 25 06/25/2024 UA WITH CULTU RE REFLE X urine-color Yellow yellow Not Available [facility] ([facility]) [address] [place], [address], 06/28/2024 12:07:13 06/26/19 25 06/25/2024 UA WITH CULTU RE REFLE X appearance Cloudy clear abnormal Not Available [facility] ([facility]) [address] [place], [address], 06/28/2024 12:07:13 06/26/19 25 06/25/2024 UA WITH CULTU RE REFLE X WBC esterase 3+ negati ve abnormal Not Available [facility] ([facility]) [address] [place], [address], 06/28/2024 12:07:13 06/26/19 25 06/25/2024 UA WITH CULTU RE REFLE X protein Trace negati ve/tra ce Not Available [facility] ([facility]) [address] [facility], [place], [address], 06/28/2024 12:07:13 06/26/19 25 06/25/2024 UA WITH CULTU RE REFLE X glucose Negati ve negati ve Not Available [facility] ([facility]) [address] [facility], [place], [address], 06/28/2024 12:07:13 06/26/19 25 06/25/2024 UA WITH CULTU RE REFLE X ketones Negati ve negati ve Not Available [facility] ([facility]) [address] [place], [address], 06/28/2024 12:07:13 06/26/19 25 06/25/2024 UA WITH CULTU RE REFLE X occult blood Trace negati ve abnormal Not Available [facility] ([facility]) [address] [place], [address], 06/28/2024 12:07:13 06/26/19 25 06/25/2024 UA WITH CULTU RE REFLE X bilirubin Negati ve negati ve Not Available [facility] ([facility]) [address] [place], [address], 06/28/2024 12:07:13 06/26/19 25 06/25/2024 UA WITH CULTU RE REFLE X urobilinogen ,semi-qn 0.2 mg/dL 0.2-1. 0 normal Not Available [facility] ([facility]) [address] [place], [address], 06/28/2024 12:07:13 06/26/19 25 06/25/2024 UA WITH CULTU RE REFLE X nitrite, urine Negati ve negati ve Not Available [facility] ([facility]) [address] [place], [address], 06/28/2024 12:07:13 06/26/19 25 06/25/2024 UA WITH CULTU RE REFLE X microscopic examination See below: Micro scopi c was indic ated and was perfo rmed. Not Available [facility] ([facility]) [address] [facility], [place], [address], 06/28/2024 12:07:13 06/26/19 25 06/26/2024 UA WITH CULTU RE REFLE X WBC >30 /hpf 0 - 5 abnormal Not Available [facility] ([facility]) [address] [facility], [place], [address], 06/28/2024 12:07:13 06/26/19 25 06/26/2024 UA WITH CULTU RE REFLE X RBC 0-2 /hpf 0 - 2 Not Available [facility] ([facility]) [address] [facility], [place], [address], 06/28/2024 12:07:13 06/26/19 25 06/26/2024 UA WITH CULTU RE REFLE X epithelial cells (non renal) None seen /hpf 0 - 10 Not Available [facility] ([facility]) [address] [facility], [place], [address], 06/28/2024 12:07:13 06/26/19 25 06/26/2024 UA WITH CULTU RE REFLE X epithelial cells (renal) SIDE SAWYER Not Available [facility] ([facility]) [address] [place], [address], 06/28/2024 12:07:13 06/26/19 25 06/26/2024 UA WITH CULTU RE REFLE X casts None seen /lpf none seen Not Available [facility] ([facility]) [address] [place], [address], 06/28/2024 12:07:13 06/26/19 25 06/26/2024 UA WITH CULTU RE REFLE X cast type SIDE SAWYER Not Available [facility] ([facility]) [address] [place], [address], 06/28/2024 12:07:13 06/26/19 25 06/26/2024 UA WITH CULTU RE REFLE X crystals SIDE SAWYER Not Available [facility] ([facility]) [address], [place], [address], 06/28/2024 12:07:13 06/26/19 25 06/26/2024 UA WITH CULTU RE REFLE X crystal type SIDE SAWYER Not Available [facility] ([facility]) [address], [place], [address], 06/28/2024 12:07:13 06/26/19 25 06/26/2024 UA WITH CULTU RE REFLE X mucus threads SIDE SAWYER Not Available [facility] ([facility]) [address], [place], [address], 06/28/2024 12:07:13 06/26/19 25 06/26/2024 UA WITH CULTU RE REFLE X bacteria None seen none seen/f ew Not Available [facility] ([facility]) [address], [place], [address], 06/28/2024 12:07:13 06/26/19 25 06/26/2024 UA WITH CULTU RE REFLE X yeast SIDE SAWYER Not Available [facility] ([facility]) [address], [place], [address], 06/28/2024 12:07:13 06/26/19 25 06/26/2024 UA WITH CULTU RE REFLE X trichomonas SIDE SAWYER Not Available [facility] ([facility]) [address], [place], [address], 06/28/2024 12:07:13 06/26/19 25 06/26/2024 UA WITH CULTU RE REFLE X comment SIDE SAWYER Not Available [facility] ([facility]) [address], [place], [address], 06/28/2024 12:07:13 06/26/19 25 06/26/2024 UA WITH CULTU RE REFLE X urinalysis reflex Commen t This speci men has refle xed to a Urine Cultu re. Not Available [facility] ([facility]) [address] [facility], [place], [address], 06/28/2024 12:07:13 06/26/19 25 06/28/2024 UA WITH CULTU RE REFLE X urine culture, routine Final report abnormal Not Available [facility] ([facility]) [address] [facility], [place], [address], 06/28/2024 12:07:13 06/26/19 25 06/28/2024 UA WITH [...] ng units per mL Not Available [facility] ([facility]) [address] [facility], [place], [address], 06/28/2024 12:07:13 06/26/19 25 06/28/2024 UA WITH [...] thopr im/Grover lfa S Not Available [facility] ([facility]) [address] [facility], [place], [address], 06/28/2024 12:07:13 12/18/19 25 12/18/2024 URINE CULTU RE, ROUTI NE urine culture, routine Final report Not Available [facility] ([facility]) [address] [facility], [place], [address], 12/18/2024 16:06:56 12/18/19 25 12/18/2024 URINE CULTU RE, ROUTI NE result 1 COMMEN T Cultu re shows less than 10,00 0 colon y formi ng units of bacte zoya per rock liter of urine . This colon y count is not gener ally consi dered to be clini aracelis signi fican t. Not Available [facility] ([facility]) [address] [facility], [place], [address], 12/18/2024 16:06:56 12/02/19 24 12/02/2023 MAMMO , [...] Lay letter mailed to kay guillen WSN: [id number] Orderi ng Physic benoit: Willy ta, Taiwo ie Dictat ed By: Bee Zuleta MD Dictat ed Date/T tori: 4:00 pm Review ed By: Bee Zuleta MD Signed By: Bee Zuleta MD Signed Date/T tori: 4:00 pm Transc ribed By: CSB Transc riptio n Date/T tori: 3:59 pm Birads : Kay guillen Class: Outpat ient [email or web address] [facility] (Outpt Imaging) [address], [place], [address], 12/05/2023 09:40:09 12/02/19 24 12/02/2023 MAMMO , scree qi, digit al, bilat eral No observ ation record ed. [facility] [address], [place], [address], 12/02/2023 18:21:45 12/05/19 24 12/05/2023 XR, shoul [...] w) has been commun icated via the ASSET4 Action able [email or web address] gs system on 024 12:48 PM, Mandie ware ID [id number]. WSN: [id number] Orderi ng Physic benoit: Tiki Bond Y Dictat ed By: Donell gunn MD, Narayan pineda Dictat ed Date/T tori: 12:48 p Review ed By: Donell gunn MD, Narayan pineda Signed By: Donell gunn MD, Narayan pineda Signed Date/T tori: 12:48 pm Transc ribed By: BERNARDO Transc ribed Date/T tori: 12:47 pm Patien t Class: Outpat ient [facility] (Outpt Imaging) [address] [place], [address], 12/05/2023 15:20:09 12/05/19 24 12/05/2023 XR, shoul shannon, 2 or more view No observ ation record ed. [email or web address] [facility] [address] [place], [address], 12/06/2023 08:35:55 12/27/19 24 12/25/2023 MRI, shoul shannon, w/o contr ast No observ ation record ed. CARLOS Quiles [address] [facility], [place], [address], 12/29/2023 20:33:10 10/17/19 25 10/16/2024 XR, shoul [...] fractu re or disloc ation seen. WSN: [id number] Orderi ng Physic benoit: Taiwo Santoyo ie Dictat ed By: Dar Gil MD, V Dictat ed Date/T tori: 5:00 pm Review ed By: Dar Gil MD, V Signed By: Dar Gil MD, V Signed Date/T tori: 5:00 pm Transc ribed By: DICKB Transc ribed Date/T tori: 5:00 pm Patien t Class: Outpat ient [facility] (Outpt Imaging) [address] [place], [address], 10/18/2024 10:26:00 10/18/19 25 10/16/2024 XR, elbow [...] acute fractu re or disloc ation. WSN: [id number] Orderi ng Physic benoit: Taiwo Santoyo Dictat ed By: Bee Zuleta MD Dictat ed Date/T tori: 6:12 pm Review ed By: Bee Zuleta MD Signed By: Bee Zuleta MD Signed Date/T tori: 6:12 pm Transc ribed By: BERNARDO Transc ribed Date/T tori: 6:11 pm Patien t Class: Outpat ient [facility] (Outpt Imaging) [address] [place], [address], 10/18/2024 10:26:01 10/19/19 25 10/16/2024 XR, cervi [...] mild disc space narrow ing at C6-C7. [employer] Vice President ior elemen ts are intact and align satisf actori ly. Normal prever tebral soft tissue s and clear lung apices . IMPRES LUDIN: No acute findin gs. Mild cervic al spondy losis C5-C6. WSN: [id number] Orderi ng Physic benoit: Taiwo Santoyo Dictat ed By: Vijaya pineda MD, Loan Boogie Dictat ed Date/T tori: 9:53 am Review ed By: Vijaya pineda MD, Loan Boogie Signed By: Loan Parkinson MD Signed Date/T tori: 9:53 am Transc ribed By: BERNARDO Transc ribed Date/T tori: 9:50 am Patieh t Class: Outpat [facility] (Outpt Imaging) [address] [facility], [place], [address], 10/18/2024 11:37:16 11/17/19 25 11/16/2024 XR, elbow , 3 or more view See Note [facility] , a member of [facility] Patien t Name: ROSALIE MOSS Date of : 1964 Reason for Exam: LT ELBOW PAIN Exam Date: 2024 [id number] EST Report Status : Final Orderi ng [...] [facility] U/S Dept [address] [place], [address], 11/18/2024 07:03:05 12/31/19 25 12/28/2024 MRI, lumba r spine , w/o contr ast No observ ation record ed. [facility] [address] [address] [place], [address], 12/30/2024 20:00:41 Result Notes Documentation Provider Name [...] message (Yellow) has been communicated via the [email or web address] system on 12/05/2023 12:48 PM, Message ID [id number]. WSN: [id number] Ordering Physician: Tiki Bond Dictated By: Jt Martin MD Dictated Date/Time: 12/05/23 12:48 p Reviewed By: Jt Martin MD Signed By: Jt Martin MD Signed Date/Time: 12/05/23 12:48 pm Transcribed By: BERNARDO Transcribed Date/Time: 12/05/23 12:47 pm Patient Class: Outpatient DANIEL MONTELONGO [address] [facility] [address], [place], [address], [facility] 12/05/2023 15:20:09 Xr, Shoulder, 2 Or More [...] without acute fracture or dislocation seen. WSN: [id number] Ordering Physician: Estefanía Neri Dictated By: Dar Ryan MD, V Dictated Date/Time: 10/16/24 5:00 pm Reviewed By: Dar Ryan MD, V Signed By: Dar Ryan MD, V Signed Date/Time: 10/16/24 5:00 pm Transcribed By: BERNARDO Transcribed Date/Time: 10/16/24 5:00 pm Patient Class: Outpatient ESTEFANÍA NERI MD [address], [address], [facility] 10/17/2024 19:19:39 Xr, Elbow, 3 Or More View : Elbow Min 3 Views Left, 3 views Reason: pain in left elbow COMPARISON: None. FINDINGS: There is no evidence of acute fracture or dislocation. Mild osteoarthritic changes with spurring. No joint effusion. IMPRESSION: Mild osteoarthritic changes without evidence of acute fracture or dislocation. WSN: [id number] Ordering Physician: Estefanía Neri Dictated By: Mildred Zuleta MD Dictated Date/Time: 10/17/24 6:12 pm Reviewed By: Mildred Zuleta MD Signed By: Mildred Zuleta MD Signed Date/Time: 10/17/24 6:12 pm Transcribed By: BERNARDO Transcribed Date/Time: 10/17/24 6:11 pm Patient Class: Outpatient ESTEFANÍA NERI MD [address], [address], [facility] 10/17/2024 19:20:09 Xr, Cervical Spine : Cervical [...] acute findings. Mild cervical spondylosis C5-C6. WSN: [id number] Ordering Physician: Estefanía Neri Dictated By: Juan Huang MD Dictated Date/Time: 10/18/24 9:53 am Reviewed By: Juan Huang MD Signed By: Juan Huang MD Signed Date/Time: 10/18/24 9:53 am Transcribed By: BERNARDO Transcribed Date/Time: 10/18/24 9:50 am Patient Class: Outpatient ESTEFANÍA NERI MD [address] [address], [place], [address], [facility] 10/18/2024 10:53:50 Xr, Elbow, 3 Or More View : See Note [facility], a member of [facility] Patient Name: JEAN MOSS Date of : 1965 Reason for Exam: LT ELBOW PAIN Exam Date: 11/16/2024 [id number] EST Report Status: Final Ordering Provider: GWEN [...] or lytic lesions. ESTEFANÍA NERI MD [address] [address], [place], [address], [facility] 11/18/2024 07:03:05 Problems Name Problem SNOMED Code Status Onset Date Resolution Date Notes Provider Name and Address Organization Details Recorded Time Sacroili ac disorder 278447914 Completed 07/16/[address] [facility] 7 13:52:57 Neoplasm of uncertai n behavior of skin 84298180 Completed 07/16/[address] [facility] 7 13:52:54 Elevated blood-pr essure reading without diagnosi s of hyperten ludin 680634567 Completed 07/16/[address] [facility] 7 13:52:29 Neck pain 21467522 Completed 07/16/2016 Juanita Costa-Sridhar adhikari [facility] 7 13:52:48 Cervical radiculo gume 76717992 Completed 07/16/2016 Juanita Costa-Sridhar mcraenrahul adhikari [facility] 7 13:52:42 Fatigue 31559401 Completed 07/16/[address] [facility] 7 13:52:51 Lumbar sprain 966795354 Completed 07/16/[address] [facility] 7 13:51:58 Lumbago with sciatica 332658925 Completed 07/16/2016 ESTEFANÍA NERI MD [address] [address], [place], [address] [place] [address] 4 11:20:35 Arthropa thy of lumbar facet joint 338935379 Completed 07/16/2016 Juanita Costa-Sridhar mcraenrahul adhikari [facility] 7 13:52:33 Degenera tion of lumbar interver tebral disc 08021493 Completed 07/16/2016 Juanita Costa-Sridhar mcraenrahul adhikari [facility] 7 13:52:22 Neoplasm of liver 372306285 Completed 07/16/2016 Juanita Costa-Sridhar centenoorenrahul adhikari [facility] 7 13:53:05 Dysuria 08451820 Completed 07/16/2016 Juanita Costa-Sridhar mcraenrahul adhikari [facility] 7 13:52:40 Chest discomfo rt 931538207 Completed 07/16/2016 Juanita Costa-Sridhar centenoorenrahul adhikari [facility] 7 13:52:19 Abdomina l pain 77263103 Completed 07/16/2016 Juanita Costa-D ilorenzo null, [facility] 7 13:51:55 Hydronep hrosis 70511878 Completed 07/16/2016 Juanita Costa-Sridhar centenoorenzo null, [facility] 7 13:52:35 Impacted cerumen 85488475 Completed 07/16/2016 Juanita Costa-D tarynorenzo null, [facility] 7 13:53:09 Ultrasou nd scan abnormal 823248625 Completed 07/16/2016 Juanita Costa-D tarynorenzo null, [facility] 7 13:51:52 Acute cervical sprain 868534419 Completed 07/16/2016 Juanita Costa-D tarynorenzo null, [facility] 7 13:52:37 Low back pain 315566210 Completed 07/16/2016 Juanita Costa-Sridhar centenoorenzo null, [facility] 7 13:52:10 Bipolar disorder 92273427 Active Juanitadolores Costa-D tarynorenzo null, [facility] 6 17:29:06 Knee pain Completed 07/16/2016 Juanita Costa-D ilorenzo null, [facility] 7 13:52:17 Lumbosac ral radiculo gume 1079486 Completed 07/16/2016 Juanita Costa-D ilorenzo null, [facility] 7 13:52:02 Screenin g for malignan t neoplasm of breast Completed 201009/11/2013 RECORDED 08/29/19 11 2:23PM BY PETRONA COX, OFFICE VISIT Cindy Satnley PA-C [address] [address], [place], [address] [place] [address] 6 12:49:54 Screenin g for malignan t neoplasm of breast Completed 201010/04/2013 RECORDED 08/29/19 11 2:23PM BY PETRONA COX, OFFICE VISIT Cindy [employer] [address], [place], [address], [facility] 6 12:49:54 Screenin g for malignan t neoplasm of breast Completed 201010/05/2013 RECORDED 08/29/19 11 2:23PM BY PETRONA COX, OFFICE VISIT Cindy Stanley NE-C [address], [facility] [place], [address], [facility] 6 12:49:54 Screenin g for malignan t neoplasm of colon Completed 201109/11/2013 RECORDED 11/15/19 12 9:48AM BY SARAH GUSTAFSON ON/ADDEN DUM Cindy drchronoC [address], [place], [address], [facility] 6 12:49:54 Low back pain 103802469 Completed 201109/11/2013 IMPRESSI ON: BETTER BUT STILL BOTHERSO ME, PT TO USE MEDS, HEAT SEE PSSP; RECORDED 11/15/19 12 9:48AM BY SARAH GUSTAFSON ON/ADDEN DUM [facility] 7 13:52:10 Nausea 990124397 Completed 201109/11/2013 RECORDED 11/15/19 12 9:48AM BY SARAH GUSTAFSON ON/ADDEN DUM Cindy drchronoC [address], [place], [address], [facility] 6 12:49:54 Enthesop athy 84073797 Completed 201109/11/2013 IMPRESSI ON: LEFT ELBOW, ICE HAD RECENT INJECITO N; RECORDED 11/15/19 12 9:48AM BY SARAH GUSTAFSON ON/ADDEN DUM Cindy Satnley NEAggregate KnowledgeC [address], [place], [address], [facility] 6 12:49:54 Epidemic vertigo 020420003 Completed 201109/11/2013 IMPRESSI ON: MOST LIKELY CAUSE OF HER DIZZINES S GIVEN THAT SHE HAS A VIRAL URI RIGHT NOW. IF THIS PERSISTS I WOULD CONSIDER CERVICAL DIZZINES S CAUSE WITH HER RECENT NECK ISSUES.; RECORDED 11/15/19 12 9:48AM BY SARAH GUSTAFSON ON/ADDEN DUM Cindy Stanley PA-C [address], [place], [address], [facility] 6 12:49:54 Screenin g for malignan t neoplasm of colon Completed 201110/04/2013 RECORDED 11/15/19 12 9:48AM BY SARAH GUSTAFSON ON/ADDEN DUM Cindy Stanley PA-C [address], [place], [address], [facility] 6 12:49:54 Low back pain 260430752 Completed 201110/04/2013 IMPRESSI ON: BETTER BUT STILL BOTHERSO ME, PT TO USE MEDS, HEAT SEE PSSP; RECORDED 11/15/19 12 9:48AM BY SARAH GUSTAFSON ON/ADDEN DUM [facility] 7 13:52:10 Nausea 719883724 Completed 201110/04/2013 RECORDED 11/15/19 12 9:48AM BY KWAN GUSTAFSONATI ON/ADDEN DUM Cindy Stanley PA-C [address], [place], [address], [facility] 6 12:49:54 Enthesop athy 90320243 Completed 201110/04/2013 IMPRESSI ON: LEFT ELBOW, ICE HAD RECENT INJECITO N; RECORDED 11/15/19 12 9:48AM BY SARAH GUSTAFSON ON/ADDEN DUM Cindy [employer] PA-C [address], [place], [address], [facility] 6 12:49:54 Epidemic vertigo 858361662 Completed 201110/04/2013 IMPRESSI ON: MOST LIKELY CAUSE OF HER DIZZINES S GIVEN THAT SHE HAS A VIRAL URI RIGHT NOW. IF THIS PERSISTS I WOULD CONSIDER CERVICAL DIZZINES S CAUSE WITH HER RECENT NECK ISSUES.; RECORDED 11/15/19 12 9:48AM BY SARAH GUSTAFSON ON/ADDEN DUM Cindy [employer] PA-C [address], [place], [address], [facility] 6 12:49:54 Screenin g for malignan t neoplasm of colon Completed 201110/05/2013 RECORDED 11/15/19 12 9:48AM BY SARAH GUSTAFSON ON/ADDEN DUM Cindy [employer] [address], [place], [address], [facility] 6 12:49:54 Low back pain 858810903 Completed 201110/05/2013 IMPRESSI ON: BETTER BUT STILL BOTHERSO ME, PT TO USE MEDS, HEAT SEE PSSP; RECORDED 11/15/19 12 9:48AM BY SARAH GUSTAFSON ON/ADDEN DUM [facility] 7 13:52:10 Nausea 878509120 Completed 201110/05/2013 RECORDED 11/15/19 12 9:48AM BY SARAH GUSTAFSON ON/ADDEN DUM Cindy [employer] PA-C [address], [place], [address], [facility] 6 12:49:54 Enthesop athy 22126879 Completed 201110/05/2013 IMPRESSI ON: LEFT ELBOW, ICE HAD RECENT INJECITO N; RECORDED 11/15/19 12 9:48AM BY SARAH GUSTAFSON ON/ADDEN DUM Cindy Stanley PA-C [address], [place], [address], [facility] 6 12:49:54 Epidemic vertigo 738444577 Completed 201110/05/2013 IMPRESSI ON: MOST LIKELY CAUSE OF HER DIZZINES S GIVEN THAT SHE HAS A VIRAL URI RIGHT NOW. IF THIS PERSISTS I WOULD CONSIDER CERVICAL DIZZINES S CAUSE WITH HER RECENT NECK ISSUES.; RECORDED 11/15/19 12 9:48AM BY SARAH GUSTAFSON ON/ADDEN DUM Cindy Stanley PA-C [address], [place], [address], [facility] 6 12:49:54 Acute pharyngi tis 872560931 Completed 201109/11/2013 RECORDED 01/14/20 12 2:39PM BY SARAH GUSTAFSON ON/ADDEN DUM Cindy Stanley PA-C [address] [facility] [address], [place], [address], [facility] 6 12:49:54 Acute upper respirat ory infectio n 32879196 Completed 201109/11/2013 RECORDED 01/14/20 12 2:39PM BY SARAH GUSTAFSON ON/ADDEN DUM Cindy Stanley PA-C [address], [place], [address], [facility] 6 12:49:54 Acute pharyngi tis 040808447 Completed 201110/04/2013 RECORDED 01/14/20 12 2:39PM BY SARAH GUSTAFSON ON/ADDEN DUM Cindy Stanley PA-C [address], [place], [address], [facility] 6 12:49:54 Acute upper respirat ory infectio n 16525865 Completed 201110/04/2013 RECORDED 01/14/20 12 2:39PM BY KWAN GUSTAFSONATI ON/ADDEN DUM Cindy Stanley PA-C [address], [place], [address], [facility] 6 12:49:54 Acute pharyngi tis 092331273 Completed 201110/05/2013 RECORDED 01/14/20 12 2:39PM BY KWAN GUSTAFSONATI ON/ADDEN DUM Cindy Stanley PA-C [address], [place], [address], [facility] 6 12:49:54 Acute upper respirat ory infectio n 07618015 Completed 201110/05/2013 RECORDED 01/14/20 12 2:39PM BY SARAH GUSTAFSON ON/ADDEN DUM Cindy Stanley PA-C [address], [place], [address], [facility] 6 12:49:54 Adult health examinat ion Completed 201209/11/2013 IMPRESSI ON: PAP IS DUE BUT DOES NOT WANT TODAY, WILL DO AT FOLLOWUP 11/10, IS EXERCISI GN EATING BETTER LOST WEIGHT; RECORDED 07/05/19 13 11:00AM BY KARINA HOLLAND MA, SARAH ON/ADDEN DUM Cindy Stanley PA-C [address], [place], [address], [facility] 6 12:49:54 Screenin g for malignan t neoplasm of cervix Completed 201209/11/2013 RECORDED 07/05/19 13 11:00AM BY KARINA HOLLAND MA, ANNOTATI ON/ADDEN DUM Cindy Stanley PA-C [address], [place], [address], [facility] 6 12:49:54 Menopaus al symptom 69595324 Completed 201209/11/2013 IMPRESSI ON: MOST LIKELY PERIMENO PASUAL, CHECK LABS; RECORDED 07/05/19 13 11:00AM BY KARINA HOLLAND MA, SARAH ON/ADDEN DUM Cindy Stanley PA-C [address], [place], [address], [facility] 6 12:49:54 Administ ration of diphther ia and tetanus vaccine Completed 201209/11/2013 RECORDED 07/05/19 13 11:00AM BY KARINA HOLLAND MA, SARAH ON/ADDEN DUM Cindybarbara Stanley PA-C [address], [place], [address], [facility] 6 12:49:54 Adult health examinat ion Completed 201210/04/2013 IMPRESSI ON: PAP IS DUE BUT DOES NOT WANT TODAY, WILL DO AT FOLLOWUP 11/10, IS EXERCISI GN EATING BETTER LOST WEIGHT; RECORDED 07/05/19 13 11:00AM BY KARINA HOLLAND MA, SARAH ON/ADDEN DUM Cindybarbara Stanley PA-C [address], [place], [address], [facility] 6 12:49:54 Screenin g for malignan t neoplasm of cervix Completed 201210/04/2013 RECORDED 07/05/19 13 11:00AM BY KARINA HOLLAND MA, KWANATI ON/ADDEN DUM Cindy Jaden PA-C [address], [place], [address], [facility] 6 12:49:54 Menopaus al symptom 46025582 Completed 201210/04/2013 IMPRESSI ON: MOST LIKELY PERIMENO PASUAL, CHECK LABS; RECORDED 07/05/19 13 11:00AM BY KARINA HOLLAND MA, ANNOTATI ON/ADDEN DUM Cindy Jaden PA-C [address], [place], [address], [facility] 6 12:49:54 Administ ration of diphther ia and tetanus vaccine Completed 201210/04/2013 RECORDED 07/05/19 13 11:00AM BY KARINA HOLLAND MA, ANNOTATI ON/ADDEN DUM Cindy Jaden PA-C [address], [place], [address], [facility] 6 12:49:54 Adult health examinat ion Completed 201210/05/2013 IMPRESSI ON: PAP IS DUE BUT DOES NOT WANT TODAY, WILL DO AT FOLLOWUP 11/10, IS EXERCISI GN EATING BETTER LOST WEIGHT; RECORDED 07/05/19 13 11:00AM BY KARINA HOLLAND MA, SARAH ON/ADDEN DUM Cindy Jaden PA-C [address], [place], [address], [facility] 6 12:49:54 Screenin g for malignan t neoplasm of cervix Completed 201210/05/2013 RECORDED 07/05/19 13 11:00AM BY KARINA HOLLAND MA, SARAH ON/ADDEN DUM Cindy Jaden SANCHEZ-C [address], [place], [address], [facility] 6 12:49:54 Menopaus al symptom 51940076 Completed 201210/05/2013 IMPRESSI ON: MOST LIKELY PERIMENO PASUAL, CHECK LABS; RECORDED 07/05/19 13 11:00AM BY KARINA HOLLAND MA, ANNOTMIGUEL ON/ADDEN DUM Cindy Jaden SANCHEZ-C [address], [place], [address], [facility] 6 12:49:54 Administ ration of diphther ia and tetanus vaccine Completed 201210/05/2013 RECORDED 07/05/19 13 11:00AM BY KARINA HOLLAND MA, ANNOTATI ON/DEQUAN TAYLA Cindybarbara Stanley PA-C [address] [facility] [address], [place], [address], [facility] 6 12:49:54 Generali zed anxiety disorder 61253605 Completed 201307/16/2016 RECORDED 06/05/19 14 1:32PM BY PETRONA COX, OFFICE VISIT Juanita adhikari [facility] 7 13:53:13 Backache 534556534 Completed 201309/05/2019 IMPRESSI ON: ACUTE L LOWER BACK PAIN STARTING APPROX 3 WEEKS AGO, ? LUMBAR STRAIN VS SACROILI ITIS LIKELY SECONDAR Y TO SNOW SHOVELIN G AND WORK DUTIES (FREQ LIFTING) . PROVIDED WITH PT INFO FROM [facility] RE SACROILI ITIS. ADVISED RE ACTIVITY MODIFICA [...] BY PETRONA COX, OFFICE VISIT Juanita adhikari [facility] 0 14:07:31 Depressi ve disorder 02325149 Completed 201307/16/2016 RECORDED 06/05/19 14 1:32PM BY PETRONA COX, OFFICE VISIT Juanita adhikari [facility] 7 13:52:27 Pure hypercho lesterol emia 432805633 Completed 201307/16/2016 RECORDED 06/05/19 14 1:32PM BY PETRONA COX, OFFICE VISIT Juanita adhikari, [facility] 7 13:52:06 Muscle, ligament and fascia disorder s 925390009 Completed 201307/16/2016 IMPRESSI ON: NEW PROBLEM PT TO SET UP PT; RECORDED 06/05/19 14 1:32PM BY PETRONA COX, OFFICE VISIT Juanita adhikari [facility] 7 13:52:13 Single major depressi ve episode Completed 201307/16/2016 RECORDED 06/05/19 14 1:32PM BY PETRONA COX, OFFICE VISIT Juanita adhikari [facility] 7 13:52:24 Osteoart hritis 298367117 Completed 201302/24/2024 ESTEFANÍA NERI MD [address] [facility] [address], [place], [address], [facility] 4 11:20:39 Brachial neuritis 07421606 Completed 201307/16/2016 IMPRESSI ON: PT IS GETTING PT AT [facility], WILL SEE DR FAJARDO AFTER AND MAY NEED INJECITO N, PAIN THER KRYSTA ND OFF FOR 2 YEARS.; RECORDED 06/05/19 14 2:19PM BY JUANITA Nelson MD, OFFICE VISIT Juanita adhikari [facility] 7 13:52:45 Costal chondrit is 14182095 Completed 201607/16/[address] [facility] 7 13:53:03 Chronic neck pain 38488663842 07 Active 2017 currentl y stable ESTEFANÍA NERI MD [address], [place], [address], [facility] 4 11:20:07 Polyp of colon 55239172 Active [address] [facility] 8 14:35:49 SARS-CoV -2 Completed 202010/31/2020 Juanita Renan thormiriamrahul null, [facility] 1 11:18:53 History of calculus of kidney 427317009 Active 2020 Juanita LawChuy thormiriamrahul null, [facility] 1 14:59:31 Pain of left shoulder joint 53725901392 260724 Completed 202002/24/2024 ESTEFANÍA NERI MD [address], [place], [address], [facility] 4 11:19:18 Lumbago with sciatica 924288580 Completed 202102/24/2024 ESTEFANÍA NERI MD [address], [place], [address], [facility] 4 11:20:35 Pain of right shoulder joint 44254438082 838999 Active 2022 Girma Stanley PA-C [address] [facility] [address], [place], [address], [facility] 3 14:42:12 Problem Notes None recorded. Procedures Surgical History Date Name Laterality Status Provider Name and Address Organization Details Recorded Time 12/02/19 24 Most Recent Mammogram completed Shannon Dwyer [facility] 12/05/2023 09:40:07 02/17/20 21 acromioplasty of shoulder completed Yeimy Rinaldi [facility] 02/24/2021 15:32:40 01/31/20 20 Mammogram screening completed Yeimy Rinaldi [facility] 02/08/2020 15:19:42 08/31/19 19 Mini-Cog Test completed Petrona Cox MA [facility] 08/30/2018 13:08:31 08/27/19 18 Orthopedic Surgery completed Loretta Hidalgo [facility] 09/06/2017 15:17:27 09/25/19 17 Date of Last [facility] 07/18[facility]2017 14:10:30 09/25/19 17 Colonoscopy completed Marcela Alberto CHLOE [facility] 09/29/2016 15:16:39 06/29/19 16 Orthopedic Surgery completed Petrona Cox MA [facility] 07/16/2015 10:54:21 Dxa bone density farhan vrt fx completed Karina jansen MA [facility] 07/16/2016 13:38:15 Orthopedic Surgery completed Petrona Cox MA [facility] 12/24/2021 10:28:24 Imaging Results None recorded. Procedure Notes None recorded. Medical Equipment None Reported. Allergies Allergen ID Allergen Name Allergen Category Reaction Reaction Severity Criticality Documentation Date Start Date Code Code System Note Provider Name and Address Organization Details Recorded Time 3570 Ultram medicatio n rash Not available Not available 09/11/20132013 59551 [address] [facility] 5 11:37:48 47480 tramadol medicatio n Not available Not available Not available 01/11/2025 91414 RxNorm Not Available carlos - External Data Service - prod 5 09:24:16 Medications Name Sig Start Date Stop Date [...] as directed for 30 days. 05/26 completed ryan Rayo increase d pt's med to 400mg in [...] 300 mg capsule TAKE 1 CAPSULE( S) IN THE EVENING NEEDED FOR 30 DAYS active Not Available Not Available No t Available diclofena c sodium 75 mg tablet,de layed [...] Updated DateTime 5 165.74 cm 26.4 kg/m2 30699.7 8 g 91 /min 99 % 99 % 18 /min 98.2 [degF] 142/82 mm[Hg] 142/81 mm[Hg] ESTEFANÍA NERI MD [address] [facility] [address], [place], [address] [place] [address] 5 13:51:30 Date Recorded Body height Body mass index (BMI) Body weight Oxygen saturation Oxygen saturation in Arterial blood by Pulse oximetry Heart rate Body temperature Systolic And Diastolic Systolic And Diastolic Provider Name and Address Organization Details Last Updated DateTime 5 165.74 cm 27.3 kg/m2 53846.4 4 g 99 % 99 % 93 /min 98.5 [degF] 143/89 mm[Hg] 164/87 mm[Hg] Petrona Cox MA [facility] 5 15:32:43 Date Recorded Pain severity - 0-10 verbal numeric rating [Score] - Reported Body temperature Body height Body mass index (BMI) Body weight Heart rate Oxygen saturation Oxygen saturation in Arterial blood by Pulse oximetry Systolic And Diastolic Provider Name and Address Organization Details Last Updated DateTime 4 6 97.6 [degF] 165.74 cm 26.6 kg/m2 74377.3 7 g 81 /min 98 % 98 % 158/83 mm[Hg] [facility] 4 11:33:10 Date Recorded Body height Body mass index (BMI) Body weight Heart rate Oxygen saturation Oxygen saturation in Arterial blood by Pulse oximetry Body temperature Systolic And Diastolic Provider Name and Address Organization Details Last Updated DateTime 5 165.74 cm 26.9 kg/m2 84452.5 6 g 107 /min 97 % 97 % 98 [degF] 120/72 mm[Hg] Eladio [facility] 5 11:10:54 Date Recorded Systolic And Diastolic Provider Name and Address Organization Details Last Updated DateTime 02/24/2024 130/82 mm[Hg] ESTEFANÍA NERI MD [address], [address], [facility] 02/24/2024 11:29:19 Date Recorded Body height Body mass index (BMI) Body weight Heart rate Oxygen saturation Oxygen saturation in Arterial blood by Pulse oximetry Body temperature Systolic And Diastolic Provider Name and Address Organization Details Last Updated DateTime 4 165.74 cm 26.8 kg/m2 45078.9 6 g 100 /min 98 % 98 % 97.6 [degF] 136/83 mm[Hg] Mere Bass [facility] 4 11:04:08 Social History Question Answer Notes LastModified by Organizat ion Details LastModified Time Tobacco Smoking Status Never Smoker Marcela adhikari [facility] 02/08/2014 15:06:40 Do You Have An Advance Directive? Yes HCP Signed On 07/16/16 [email or web address] Information not available 12/24/2021 Is Blood Transfusion Acceptable In An Emergency? Yes [email or web address] Information not available 04/18/2015 What Is Your Level Of Caffeine Consumption? Occasional [place] Information not available 02/24/2024 How Much Tobacco Do You Chew? None Information not available 07/16/2016 In The 14 Days Before Symptom Onset, Have You Had Close Contact With A Person Who Is Under Investigation For COVID-19 While That Person Was Ill? No [email or web address] Information not available 12/24/2021 What Type Of Diet Are You Following? REGULAR Information not available 07/16/2016 Which Illicit Or Recreational Drugs Have You Used? None Information not available 07/16/2016 Live Alone Or With Others? Alone Information not available 02/24/2024 Do You Take Precautions To Prevent Distracted Driving? Yes [email or web address] Information not available 04/18/2015 How Often Do You Need To Have Someone Help You When You Read Instructions, Pamphlets, Or Other Written Material From Your Doctor Or Pharmacy? Never [email or web address] Information not available 12/24/2021 Have You Served In The ? No Information not available 07/16/2016 Have You Or Anyone In Your Household Had Any Of The Following Symptoms In The Last 14 Days: Sore Throat, Cough, Chills, Body Aches For Unknown Reasons, Shortness Of Breath For Unknown Reasons, Loss Of Smell, Loss Of Taste, Fever At Or Greater Than 100 Degrees Fahrenheit? No [email or web address] Information not available 09/05/2019 Are You Or Anyone In Your Household A Health Care Provider Or Emergency Responder? No [email or web address] Information not available 09/05/2019 To The Best Of Your Knowledge Have You Been In Close Proximity To Any Individual Who Tested Positive For COVID-19? No Information not available 09/05/2019 Have You Recently Traveled To A COVID-19 High Risk Area Or Gathering In The Last 10 Days? No [email or web address] Information not available 03/10/2020 What Was The Date Of Your Most Recent Tobacco Screening? 02/24/2024 Information not available 02/24/2024 How Many Children Do You Have? 0 [email or web address] Information not available 12/24/2021 Do You Use Protection During Sex? No Information not available 07/16/2016 What Is Your Relationship Status? [email or web address] Information not available 12/24/2021 Do You Use Your Seat Belt Or Car Seat Routinely? Yes [email or web address] Information not available 12/24/2021 Seat Belts Used Routinely Yes [email or web address] Information not available 12/24/2021 Are You Sexually Active? No [email or web address] Information not available 12/24/2021 Smoke Alarm In Home Yes [email or web address] Information not available 12/24/2021 Do You Have Smoke And Carbon Monoxide Detectors In Your Home? Yes [email or web address] Information not available 12/24/2021 At What Age Did You Start Smoking Tobacco? 0 Information not available 07/16/2016 Are You Passively Exposed To Smoke? No Information not available 07/16/2016 How Much Tobacco Do You Smoke? No Information not available 07/16/2016 Do You Use Sunscreen Routinely? No [email or web address] Information not available 12/24/2021 How Many Years Have You Smoked Tobacco? 0 Information not available 07/16/2016 Sex: Unknown Functional Status Question Answer Note LastModified by Organizat ion Details LastModified Time Do you use any illicit or recreational drugs? No Information not available 12/05/2023 Do you or have you ever used any other forms of tobacco or nicotine? No [email or web address] Information not available 12/24/2021 What is your level of alcohol consumption? Moderate [email or web address] Information not available 12/24/2021 Do you or have you ever used smokeless tobacco? Never used smokeless tobacco [email or web address] Information not available 09/05/2019 Are you currently employed? No Unemployed Information not available 02/24/2024 Are you able to walk independently without assistance or assistive devices? YESWOREST [email or web address] Information not available 12/24/2021 Are you able [...] by Organization Details LastModified Time Mother Dementia [email or web address] Not avail able 05/23/2015 11:00:02 Mother Hypertensive disorder [email or web address] Not available 11:00:02 Mother Polyp of colon [email or web address] Not available 12/24 10:17:26 Mother Osteoporosis [email or web address] Not a vailable 05/23/2015 11:00:02 Mother Hypercholest erolemia [email or web address] Not available 11:00:02 Father Dementia [email or web address] Not avail able 05/23/2015 11:00:02 Medical History [...] mL dose 06/13/19 [address] [facility] 10/31/2020 11:05:38 COVID-19, mRNA, LNP-S, PF, 30 mcg/0.3 mL dose 07/07/19 21 completed CHLOE Cash, [facility] 10/31/2020 11:06:30 COVID-19, mRNA, LNP-S, PF, 30 mcg/0.3 mL dose 02/13/20 [address] [facility] 10/13/2021 09:30:50 COVID-19, mRNA, LNP-S, PF, 30 mcg/0.3 mL dose, cathie-sucrose 07/14/[address] [facility] 12/24/2021 10:18:01 zoster recombinant 06/27/19 25 completed Not Available [facility] 12/17/2024 10:58:19 zoster recombinant 09/23/19 25 completed Not Available [facility] 12/17/2024 10:58:19 Influenza, split virus, quadrivalent, PF 07/17/19 17 cancelled patient objection Not Available [facility] 03/17/2019 02:22:07 Tdap 06/03/19 13 completed Not Available [facility] 09/11/2013 13:42:23 Past Encounters Encounter ID Performer Location Encounter Start Date Encounter Closed Date Diagnosis/Indication Diagnosis SNOMED-CT Code Diagnosis ICD10 Code Diagnosis IMO Codes Diagnosis Note [id number] [facility]Comm erce [address] [facility] [place] [address] 08/28/2010 00:00:00 [id number] autoEComm erce [address] [facility] [place] [address] 03/12/2011 00:00:00 [id number] autoEComm erce [address] [place] [address] 04/09/2011 00:00:00 [id number] auto[address]Comm erce [address] [place] [address] 06/18/2011 00:00:00 [id number] autoEComm erce [address] [facility] [address] [place] [address] 11/15/2011 00:00:00 [id number] autoEComm erce [address] [place] [address] 01/14/2012 00:00:00 [id number] autoEComm erce [address] [place] [address] 03/17/2012 00:00:00 [id number] [address] [place] [address] 06/02/2012 00:00:00 [id number] autoEComm erce [address] [facility] [place] [address] 08/04/2012 00:00:00 [id number] autoEComm erce [address] [facility] [place], [place] [address] 04/24/2013 00:00:00 [id number] autoEComm erce [address] [facility] [place], [place] [address] 06/04/2013 00:00:00 [id number] Christiano Gonzalez [facility] Main Office [address] [address] [place] [address] 02/08/2014 14:44:31 02/08/2014 15:37:35 Sacroiliac disorder 964133414 if not improving she will contact [employer] [facility] who she has seen before [id number] Ender Zaman [facility] Main Office [address] [address] [place] [address] 03/29/2014 12:57:07 03/29/2014 13:31:15 Neoplasm of uncertain behavior of skin 62113703 Developed new skin lesion 7 months ago, she keeps picking at it and it bleeds then scabs. She is becoming concerned as it is getting larger. Will refer to derm for further eval. Osteoarthritis 789484983 P atient with hx bilateral knee surgeries, having some right knee pain, she requests referral to orthopedic s. Elevated blood-pressure reading without diagnosis of hypertension 341343721 Repeat BP WNL, will have this rechecked at her PE in May [id number] Juanita hogan MD Main Office [address] [address] [place] [address] 01/03/2015 14:00:29 01/03/2015 15:07:07 Neck pain 65876003 M54.2 pain is quite disruptive , and she is taking way too much motrin, limit motrin to 600mg at a time for for n ot take a break from it and try meds below, stop lifting heavy boxes Cervical radiculopathy 62416064 M54.12 Fatigue 56768894 R53.83 [id number] Cindy Stanley PA-C Main Office [address] [address] [place] [address] 02/07/2015 13:27:05 02/07/2015 14:18:31 Lumbar sprain 754962613 S33.9XXA Lumbago with sciatica 20 6300006 M54.40 New onset low back issues. Pt. has knee and neck degenerati ve problems. Will do lumbar spine XRAys ./ PT. has catracho with [facility] in February. Treat with Medrol dosepack and after with Naprosym BID. Pt. still has muscle relaxants at home. [id number] Cindy Stanley PA-C Main Office [address] [facility] [address] [facility] [address] 03/12/2015 13:53:19 03/12/2015 14:54:01 Arthropathy of lumbar facet joint 714100333 M46.96 Degenerati on of lumbar intervertebral disc 48485062 M51.36 Pt. has catracho next week with Dr. Maxwell. Schedule MRI at [facility]. Ibuprofen 800 mg TID with food . Oxycodone 5-325 mg PRN. MOist heat applicatio ns. Note for work to release her until next week. [id number] Juanita hogan MD Main Office [address] [facility] [address] [facility] [place] [address] 04/18/2015 13:15:52 04/18/2015 14:44:15 Adult health examination 623430301 Z00.00 Dysuria 67002968 R30.0 Screening for malignant neoplasm of colon 710436452 Z12.11 Chest discomfort 4664045 09 R07.89 Abdominal pain 72065611 R10.9 pt with a lot fo discomfort , bilateral flanks but diffuse, referred pain, hx fo chills and low grade fever here, normal urine dip, ? intraabdom inal infectious process needs eval and CT of abdomena nd pelvis for clarificat ion today, to ER. [id number] Juanita hogan MD Main Office [address] [facility] [address] [place] [address] 05/01/2015 08:44:24 05/01/2015 10:03:28 Backache 972143241 M54.9 on meds and in care Hydronephrosis 12573588 N13.30 seen on bedside US in ER, will repeat to look for resolution , they thought a kidney stone had passed Impacted cerumen 8631542 6 H61.23 cleaned out without problems Screening procedure 2012 5006 Z13.9 [id number] Cindy Jaden HUBER Main Office [address] [facility] [address] [place] [address] 05/23/2015 10:51:47 05/23/2015 11:46:03 Acute cervical sprain 308214485 S13.4XXA Acute neck sprain due to fall. Tension headache. Start Ibuprofen 800 mg TID with food, Cyclobenza tomi 10 mg BID for 5-7 days, moist heat and massage. Referral to PT at [facility] for 4 weeks. F/u as needed. [id number] Juanita hogan MD Main Office [address] [facility] [address] [place] [address] 07/16/2015 10:43:39 07/16/2015 11:29:32 Neck pain 04037105 M54.2 a bit better after PT, she needs more since still with neck pain, she will setup when she can afford the copay, pt is currently on crutches for recent knee surgerya dn has chronic back pain, unable to work due to these issues. History of operative procedure on knee 273491881 Z98.89 just had removal of screws in right knee form Dr Calix, is on one crutch Low back pain 329036273 M54.5 chronic, had 4 injections with orthopedic s, she was advised by her orthopedis t she is not able to work in the physical job she has been working at. it includes a lot of lifting, twisting, bending. Bipolar disorder 7610665 4 F31.9 pt is depressed, many health issues, she needs to see a prescriber for ehr meds for depression due to bipolar diagnosis, I will ask Amanda the therapist who owrks out of our office to help with this, pts therapist said she could not get her seen for meds before 11/13. [id number] Juanita hogan MD Main Office [address] [facility] [address] [place] [address] 08/25/2015 15:06:17 08/25/2015 15:40:26 Bipolar disorder 33920576 F31.9 just saw psychiatry today and was placed on lamictal, she will taper upward. Knee pain 76941144 M25.[address] Yogi, he removed a screw and has had pain since, not a new issue, there for weeks Low back pain 078371757 M54.5 injections helped but cannot get for awhile now [id number] Cindy Stanley PA-C Main Office [address] [address] [place] [address] 10/22/2015 10:45:53 10/22/2015 11:41:14 Lumbosacral radiculopathy 3903293 M54.17 Acute flare of lumbar radiculopa thy . Will start Prednisone taper and muscle relaxants. Followed by a week or so of NSAIDs, F/u with Dr. Maxwell. Elevated blood-pressure reading without diagnosis of hypertension 078938801 R03.0 Discontinu e or significan tly lower caffeine intake. Lower sodium. Test BP at home and returnin 10 days for f/u. [id number] Cindy Stanley PA-C Main Office [address] [place] [address] 11/04/2015 13:33:14 11/04/2015 14:49:08 Elevated blood-pressure reading without diagnosis of hypertension 572062858 R03.0 Continue no caffeine and low sodium diet. test BP at home daily and return as scheduled at the end of the month with PCP with BP readings to determine if medication addition is needed. [id number] Juanita hogan MD Main Office [address] [place] [address] 11/28/2015 14:53:54 11/28/2015 15:43:10 Low back pain 817083167 M54.5 injections helped but cannot get one in 01/[address] Goodwin she will call Dr Goodwin and ask if she can do PT. refilled soma today [id number] Cindy Stanley PA-C Main Office [address] [place] [address] 06/08/2016 10:56:39 06/08/2016 11:26:40 Bipolar disorder 74793402 F31.9 Generalize d anxiety disorder 03240051 F41.1 Insomnia 987763138 G47.0 0 INsomnia secondary to uncontroll ed bipolar d/o and discontinu ation of all the meds. Pt. is advised to immediatel y reinitiate all her meds including sleeping aids/Trazo done and schedule sooner catracho for this or next week with psych. [id number] Juanita hogan MD Main Office [address] [facility] [address] [place] [address] 07/16/2016 13:19:39 07/16/2016 14:16:48 Adult health examination 241089767 Z00.00 pt is very overdue for pap, will consider doing it here next time. Immunization refused 275 806894 Z28.21 does not want flu shot Screening for malignant neoplasm of colon 937330958 Z12.11 needs first one pt will arrange Bipolar disorder 9607269 4 F31.9 sees psychiatry and she tok herself off meds for now, feels well for a month, will discuss with them Fatigue 33642086 R53.83 refer to sleep medicine for sleep apnea eval [id number] Juanita hogan MD Main Office [address] [place] [address] 11/11/2016 13:49:16 11/11/2016 14:33:34 Neck pain 73411923 M54.2 flare of neck pain, very uncomforta ble, did PT in the past, will tx as below with gabapentin , muscle relaxer and refer to pain management , ? candidate for TENS unit ro injection? Cervical radiculopathy 26834805 M54.12 see above [id number] Juanita hogan MD Main Office [address] [place] [address] 03/24/2017 13:38:56 03/24/2017 14:33:13 Backache 366691372 M54.9 fell last night on ice, tender to palpation, will xray to rule out compressio n fracture Bipolar disorder 3627523 4 F31.9 not on meds Neck pain 76016234 M54.2 acute n chronic, heat, muscle relaxers, will see pain management back, argenis sk if needs a neurosurge on, is so will refer to Dr Narvaez [id number] Juanita hogan MD Main Office [address] [place] [address] 03/30/2017 13:28:12 03/30/2017 13:47:37 Tuberculosis screening 885751761 Z11.1 [id number] Juanita hogan MD Main Office [address] [facility] [address] [place] [address] 03/31/2017 14:08:44 03/31/2017 14:37:08 Cervical radiculopathy 55035962 M54.12 much worse after fall, left arm pain, no weakness, treat with prednisone , continue gabapentin adn muscle relaxer Bipolar disorder 5334163 4 F31.9 on meds by psychiatry [id number] Juanita hogan MD Main Office [address] [facility] [address] [place] [address] 04/01/2017 13:01:57 04/01/2017 13:36:43 [id number] Cindy Stanley PA-C Main Office [address] [address] [place] [address] 04/08/2017 09:50:29 04/08/2017 10:59:01 Neck pain 96171305 M54.2 acute on chronic neck pain exacerbate d by fall 2 weeks ago. Pain is radiating to the L. arm now. POssibly some nerve impingemen t. Pt. is seeing [facility] pain management on . In the mean [...] of the neck. Pain in right knee 37128 52416 29151 M25.561 secondary to fall. XRay to r/o fracture. recommend to apply ice 10 minutes every 2-4 hrs today. TID patrick. XRAy ordered. Fall due t o slipping on ice or snow 515541494 W00.0XXD [id number] Cindy Stanley PA-C Main Office [address] [facility] [address] [place] [address] 05/30/2017 14:34:35 05/30/2017 15:23:31 Hand pain 61705535 M79.642 Cervical radiculopathy 73160882 M54.12 Pt. is seeing [facility] on 06/08/17 for the results of the C-spine MRI. In the mean time , will start Prednisone and after will take Meloxicam 15 mg daily. Will try to increase Gabapentin to 500 mg total per day in 2 divided doses and if tolerated in 1 week go to 300 mg BID. [id number] Girma Stanley PA-C Main Office [address] [address] [place] [address] 07/14/2017 11:28:05 07/14/2017 12:18:09 Pain of right ankle joint 0354872032 6110226 M25.571 and edema - ? sprain vs fx - check xray - if + will send to ortho, meanwhile - will give aircast and send to PT - also rec prn tyl, cont rice, rec alphabet stretch [id number] Juanita hogan MD Main Office [address] [address] [place] [address] 07/18/2017 14:03:45 07/18/2017 14:40:31 Adult health examination 620452421 Z00.00 pr refuses pap, she does not want one here either, rest of screening is utd Chronic neck pain 753922 2560 107 M54.2 better, gabapentin helps, Sprain of ankle 44374772 S93.411S right ankle sprain, start PT continue using it, ROM Bipolar disorder 3691607 4 F31.9 on meds by psychiatry , continue [id number] Juanita hogan MD Main Office [address] [address] [place] [address] 10/12/2017 08:39:12 10/12/2017 19:16:17 [id number] Girma Stanley PA-C Main Office [address] [facility] [address] [place] [address] 10/18/2017 12:56:56 10/18/2017 13:55:41 Backache 099899423 M54.10 seen at ER then [facility] - rev note will add PT - [...] pending see Dr. Oglesby 10.4 Knee pain 10682479 M25.5 61 G89.29 s/p R knee arthroscop y by Dr. Rayo - but he does not do partial knee replacemen t - so has pending eval c neos (Dr. Gómez) 10.30 Chronic neck pain 392003 0973 107 M54.2 last seen by [facility] 4.18 - was d/c'd - better [id number] Juanita hogan MD Main Office [address] [address] 05/26/2018 15:10:48 05/26/2018 15:59:17 Pain in left knee 1677117268 01860 M25.562 secondary to injury , ? dislocatio n. Pt. will have XRay done. Compressio n, ice and antiinflam matory.If continues with swelling and pain , will refer to ortho for complete eval. Sprain of interphalangeal joint of finger 29390565 S63.630A Ice, immobilize and take NSAIDs as discussed. [id number] Wali Champagne MD Main Office [address] [address] 08/21/2018 16:12:51 08/21/2018 16:48:33 Acute bronchitis 95068719 J20.9 Cough 59450628 R05 [id number] Juanita hogan MD Main Office [address] [address] 08/30/2018 12:55:25 08/30/2018 13:42:37 Adult health examination 336254983 Z00.00 pr refuses pap, she does not want one here either, rest of screening to be done, will set up mammogram Screening for malignant neoplasm of breast 570748255 Z12.39 pt will arrange Hypercholesterolemia 136 51681 E78.00 Hand pain 54966248 M79.6 42 left first finger with tender lump, came on suddenly when she opened a jar Backache 694875582 M54.9 john gabapentin as needed [id number] Maik Goldman MD Main Office [address] [address] [place] [address] 03/27/2019 13:18:02 03/27/2019 13:28:51 Tuberculosis screening 815271197 Z11.1 [id number] Juanita hogan MD Main Office [address] [address] [place] [address] 03/30/2019 12:35:47 03/30/2019 13:32:06 Injury of great toe 044586689 S99.922A needs xrays, 10 weeks ago, minimal flexion Unintentio nal weight loss 965172589 R63.4 initially from stress from loss of , now eating better, maintainin g Pain of joint of hand 20 2727592 M25.542 better after OT Accidental ly struck by or against person or object in sports 940064818 W22.8XXA [id number] Maik Goldman MD [facility] [address] [address] [place] [address] 08/23/2019 13:14:26 08/23/2019 15:31:25 Cough 98992194 R05 cont otc meds (prn tyl, robitussin ) as dir, cont self-isola tion - reviewed guidelines and advised pt to check our website and will send to portal advised pt only to go to ER if significan t sob where may need to be admitted, o/w avoid going to hospital if at all possible Dyspnea 935258343 R06.00 rec prn alb Counseling 573597098 Z71 .9 Health advice, education or counseling done for COVID 19 Exposure t o viral disease 7112927474 98663 Z03.818 Diarrhea 01519269 R19.7 rec stay hydrated, rec brat diet [id number] Juanita hogan MD Main Office [address] [address] [place] [address] 09/05/2019 13:25:41 09/05/2019 14:32:49 Adult health examination 295551752 Z00.00 pr refuses pap, she does not want one here either, rest of screening to be done, pt to set upset up mammogram Bipolar disorder 9499232 4 F31.9 on meds by psychiatry , continue, mood doing pretty well despite loss of mother in law who lived with her Chronic neck pain 730531 2697 107 M54.2 better, gabapentin helps, Inadequate immune status 957913178 Z28.3 check labs for new job Disorder o f tendon of biceps 055929779 M67.929 concern for tear or rupture of left biceps tendon. pt has ortho appt next week with doc below, ice, [id number] Juanita hogan MD Telehealt [facility] [address] [facility] [address] [place] [address] 03/10/2020 13:00:32 03/11/2020 13:25:43 Dysuria 17651092 R30.0 pt with dysuria, hx of kidney stones, I will have pt give a clean catch urine sample today and start empiric abx today, call if any fever, vomiting or worsening and pt will see urology for eval to see if recurrent kidney stone Blood in urine 59213121 R31.9 uti vs kidney stone, treat for UTI and refer to urology SARS-CoV-2 821114467 U07 .1 dx in 02/16, over 14 days and feels better, no fever, will get pt a return to work note, no repeat covid test needed and explained to pt, cleared for work History of calculus of kidney 141303769 Z87.442 ? recurrence , has seen urology in our building in the past [id number] Maik Goldman MD Main Office [address] [facility] [address] [place] [address] 04/30/2020 15:20:52 04/30/2020 16:39:36 Myofascial pain 857295965 M79.10 rec. meloxicam qd, could use prn tyl, rec. moist heat prn, gentle stretching /massage (lee inside L shoulder blade), and prn m relaxer hs Pain of le ft shoulder joint 2265229770 7647800 M25.512 believe d/t combinatio n of both myofascial pain/spasm as well as RTC strain - will get ortho eval, see below [id number] Juanita hogan MD Main Office [address] [facility] [address] [place] [address] 10/31/2020 10:51:00 10/31/2020 11:44:19 Adult health examination 341733561 Z00.00 pr refuses pap, mammogram is utd overdue for colonoscop y she will arrange. 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 Screening for malignant neoplasm of colon 181775621 Z12.11 due for repeat due to polyps pt will arrange Osteoarthritis 548709087 M19.90 Bipolar disorder 6136048 4 F31.9 off of meds and she feels her mood is quite stable. PT is not followed by a counselor or psychiatri , feels stable and feels she does not need it. She had been in therapy at [facility] but her therapist changed over about 5 times, doing well without, knows to restart therapy and med provider if any early signs that her mood is not doing well. 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 Insomnia 162334089 G47.0 0 [id number] Juanita hogan MD Main Office [address] [facility] [address] [place] [address] 05/06/2021 09:35:17 05/06/2021 10:14:32 Insomnia 364274831 G47.00 trazodone work, uses as needed and doing meditation as well Pain of le ft shoulder joint 9805076636 7473942 M25.512 surgery 02/17, she is in PT gaining ROM Glenoid labrum tear 2022 36325 S43.432D surgery as above Bipolar disorder 4551025 4 F31.9 not on meds, mood is stable, doing meditation and spiritual work, able to work when she returns in 06/19 [id number] Joana Perales MD Main Office [address] [facility] [address] [place] [address] 10/13/2021 09:29:28 10/13/2021 10:10:50 Lumbago with sciatica 580701980 M54.40 Begin medrol dose pack as directed , muscle relaxants at HS, heat applicatio ns 10 minutes 2-3 times daily, back stretches BID. PT referral if pain persists. 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 no concerns, able to drive. refuses flu shot gets covid boosters. Osteoarthritis 349500230 M19.90 achy at times, tylenol Screening for malignant neoplasm of colon 690644752 Z12.11 due for repeat due to polyps pt will arrange Pain of ri ght shoulder joint 6776846304 2972825 M25.511 does not interfere with driving, will see ortho if not improving [id number] ESTEFANÍA NERI MD Main Office [address] [address] [place] [address] 04/05/2022 10:26:09 04/05/2022 11:00:33 Post-herpetic polyneuropathy 47537603 B02.23 - resent shingles infection treated however patient is still having a lot pain- started on gabapentin for 7 days- RTC if no improvemen t Herpes zoster 4848668 B0 2.9 - no new vesicles present- pt counselled on getting the vaccinatio n once the rash resolves- pt treated with valacyclov ir and prednisone [id number] Maik Goldman MD Main Office [address] [facility] [address] [place] [address] 08/19/2022 13:41:33 08/19/2022 14:41:36 Pain of right shoulder joint 1298885401 4052310 M25.511 suspicious for RTC strain/tea r - will get PT at pt request, pending see ortho 7.17.23 - no need for referral, pt declines xray at this time, trial of meloxicam - could use prn tyl as well [id number] Maik Goldman MD Main Office [address] [place] [address] 10/13/2022 11:22:59 10/13/2022 13:12:15 Pain of right shoulder joint 9167415595 7002065 M25.511 suspicious for RTC strain/tea r - will get PT at pt request, pending see ortho 7.17.23 - no need for referral, pt declines xray at this time, trial of meloxicam - could use prn tyl as well 8.23 - seen by ortho - no sig help alexandro betancourt, had 7 sessions of PT, and also had xray that rec mri for further eval --- so will get mri to help coordinate her care / which will assist her in getting a new ortho in [place] - will attempt to get PT notes to help get mri get covered by her ins co [id number] Wali Champagne MD Main Office [address] [place] [address] 12/05/2023 11:08:06 12/05/2023 12:00:34 Influenza vaccination declined 259612955 Z28.21 Pain of ri ght shoulder joint 9170489921 4804748 M25.511 x2 months-wor sening right shoulder pain after moving furniture- limited ROM, localized sharp/burn ing pain-suspi cious for RTC strain/tea r-was following with [facility]; looking to see [facility]-xray was ordered which rec. MRI [id number] ESTEFANÍA NERI MD Main Office [address] [place] [address] 02/24/2024 10:47:09 02/24/2024 11:49:34 Adult health examination 999763812 Z00.00 Health Maintenanc e FemaleA) Patient was counseled on healthy diet, exercise and nutrition due to BMI 26.8 B) ScreeningL ast Mammogram: start at age 50 stop at 74Date: 12/02/2023 Result: BIRADS-1Ne xt: 11/2024 Last Pap smear: start at age 21 to age 65Date: Results : ???Next: declines Last Colonoscop y: start at age 45-75Date: 09/16/2016R esult: tubular adenomaNex t: 3 years Last DEXA scan:Date: due at 65Result: ??? C) Vaccines:I nfluenza: declinesTd AP: 06/02/2012 -> orderedZos ter: orderedPCV 20: orderedCOV ID: 06/12/2020, 07/06/2020, 02/12/2021 , 07/13/2021 D) Routine blood work orderedE) Updated patient's history RTC in one year for annual exam or sooner if any acute complaints Bipolar disorder 7804025 4 F31.9 - pt did have treatment in the past however is not currently following anyone Screening for malignant neoplasm of cervix 944389269 Z12.4 - pt refuses Screening for malignant neoplasm of colon 914003429 Z12.11 Fatigue 62521306 R53.83 Hyperlipidemia 78332370 E78.5 HIV screening 079193449 Z11.4 Requires a tetanus booster 985209279 Z28.39 Administra tion of pneumococcal vaccine 74169340 Z23 Varicella vaccination 68 048329 Z23 Influenza vaccination declined 783378966 Z28.21 Pain of ri ght shoulder joint 6523700630 6863248 M25.511 - for shoulder replacemen t- c/w meloxicam 7.5mg QD as needed Numbness o f upper limb 483287540 R20.0 - located on the rigth wrist [...] Elevated blood-pressure reading without diagnosis of hypertension 588591280 R03.0 - BP today is 136/83 and on repeat 130/82- pt blood pressure could be elevated due to pain- RTC in 4 months for a recheck [id number] ESTEFANÍA NERI MD Main Office [address] [place] [address] 06/22/2024 13:26:09 06/22/2024 13:56:56 Bipolar disorder 66753871 F31.9 - pt did have treatment in the past however is not currently following anyone Pain of ri ght shoulder joint 5397092156 5027352 M25.511 - s/p shoulder replacemen t Elevated blood-pressure reading without diagnosis of hypertension 619542251 R03.0 - this is patient second visit elevated BP but she remains in pain- pt was told that at next visit if her BP is high we will need to start medicine- BP today is 142/82 and on repeat 142/81 Pain of knee region 1003 976188 M25.562 68719594 - started in April after patient twisted her knee- pt does have an appoitment with [facility] on July 19 therefore will hold imaging- concerned that there may be a tear- ordered diclofenac 75mg BID for 14 days an then as needed> pt advised to take medication with food- pt referred to physical therapy Cloudy urine 0290357 R82 .90 4092508 - will check UA [id number] ESTEFANÍA NERI MD Main Office [address] [place] [address] 10/16/2024 15:17:08 10/16/2024 15:59:18 Pain of knee region 1142000015 M25.562 86676320 - pt has been following with ortho -> last seen on 08/09, recommende d conservati ve treatment and physical therapy, no surgery at this time- started patient back on diclofenac 75mg BID as needed> pt advised to take medication with food> pt aware not to take any other NSAIDs- referred patient for a second opinion- has completed physical therapy Essential hypertension 07556256 I10 44080 - elevated- BP today was 164/87 and [...] your vision. Pain of elbow region 743 85283 M25.522 849092 - pain occurred after fall- also affected [...] gabapentin Pain of le ft shoulder region 2229246006 M25.512 80234410 - pain occurred after fall- also affected [...] with gabapentin Paresthesi a of upper limb 59156220 R20.0 R20.2 1639038557 - due to dull like pain going [...] tylenol PM with gabapentin History of fall 94676802 9 Z91.81 6463244 - affecting left shoulder, elbow and wrist> however pain worse at the shoulder and elbow [id number] Wali Champagne MD Main Office [address] [address] 12/17/2024 10:55:22 12/17/2024 11:43:34 Dysuria 28959823 R30.0 11427 pt notes of dysuria since this morning-no fever, chills, hematuria, pelvic pain-denie s of any associated symptoms-w ill order urine culture Chronic low back pain 27 6793067 M54.42 M54.41 G89.29 46692059 x10 years-was seeing [facility] and getting epidural [...] Rain Member ID Guarantor Name 06/22/2024 1 [facility] - DOS PRIOR TO 2022 - DUAL ELIGIBLE (MEDICARE REPLACEMENT/A DVANTAGE - HMO) Jean Moss [id number] Jean Moss 01/11/2025 2 [place]: [email or web address] Jean Moss [id number] Jean Moss 01/03/2025 1 [facility] - DOS ON OR AFTER 2022 - DUAL ELIGIBLE - [facility] OPTIONS AND ONE CARE (MEDICARE REPLACEMENT/A DVANTAGE - HMO) Jean Moss [id number] Jean Moss 06/22/2024 2 [place] [id number] Jean Moss [id number] Jean Moss 06/22/2024 1 [place] [employer] Jean Moss [id number] Jean Moss 06/22/2024 1 [place] [facility] (O) [id number] Jean Moss [id number] Jean Moss 01/11/2025 1 [facility] Jean Moss [id number] Jean Moss Notes Date Note Type Note [...] pain x2 months. Reports she was seeing [facility] last year. Dx with severe arthritis [...] ice, and lidocaine patches. DANIEL MONTELONGO [address], [address], [facility] 12/06/2023 20:18:06 02/24/20 24 text/htm l Generic [...] cataract)Diet: regularActivity: none ESTEFANÍA NERI MD [address], [address], [facility] [place] 02/24/2024 12:24:44 06/23/19 text/htm l Musculoskeletal PainReported by PatientHPIFor quality, [...] injections.Doesn't use assisted devices. ESTEFANÍA NERI MD [address], [address], [facility] 06/22/2024 15:02:27 10/17/19 text/htm l Musculoskeletal PainReported by PatientIFor quality, patient reportsaching. For location, patient reportsleft [...] to see them again. ESTEFANÍA NERI MD [address], [address], [facility] 10/16/2024 17:01:21 12/18/19 25 text/htm l Musculoskeletal [...] been taking gabapentin for relief. DANIEL MONTELONGO [address] [facility] [address], [place], [address], [facility] 12/17/2024 12:20:50 OBGyn Episode No OBEpisode recorded.
--- OUTSIDE RECORDS SUMMARY | 2025-01-11 21:44 | XMS_ITS | Data Portability ---
Author Organization [employer] Anaya [email or web address] Address [address] [place] [address] Care Team Providers Care Capacity Planning Engineer Name Role Phone RORYNATALIE CONTEHE Primary Care Provider Assessment No assessment recorded. Plan of Treatment Reminders Order Date Submit Date Provider Last Modified By Organization Details Last Modified Time Details Appointments None recorded. Lab None recorded. Referral None recorded. Procedures None recorded. Surgeries None recorded. Imaging None recorded. Medication Orders valacyclovi r 1 gram tablet 2022 023 [email or web address] [facility]acy #[id number], [address] [place], [address], 17:51:26 prednisone 20 mg tablet 2022 023 ABRIL [facility]/Pharmacy #[id number], [address] [place], [address], 17:51:23 Patient TargetsNo targets recorded. Patient Instructions Encounter Date Encounter Id Patient Instructions Last Modified By Organization Details Last Modified Time 03/19/2022 [id number] hives: care instructions [email or web address] Not available 03/19/2022 [...] dry and soothe the skin. Take an lcco-tzh-jcxeopa pain medicine, such as acetaminophen (Tylenol), ibuprofen [...] and Address Organization Details Recorded Time Arthritis 2387503 Active 023 DANIEL Broussard [facility] 03/19/2022 17:18:28 [...] Name and Address Organization Details Recorded Time 718325 tramadol medicatio n rash Not available low 03/19/2022 35009 RxNorm Lisa adhikari PA - [facility] [...] Updated DateTime 3 165.1 cm 24.6 kg/m2 08573.6 7 g 99 % 99 % 94 /min 20 /min 98.6 [degF] 166/83 mm[Hg] Lisa Cotto PA - [facility] 17:20:01 Social History Question Answer Notes LastModified by Seat 14A Details LastModified Time Tobacco Smoking Status Never Smoker Lisa Kirti null, PA - [facility] 03/19/2022 17:18:38 Have You Had Direct Contact, Or Contact During Intimacy, With Monkeypox Rash, Scabs, Or Body Fluids From A Person With Monkeypox? No Information not available 03/19/2022 Have You Recently Traveled Abroad? No Information not available 03/19/2022 Sex: Unknown Functional Status Question Answer Note LastModified by Seat 14A Details LastModified Time How many times per [...] 30 mcg/0.3 mL dose 02/12/2021 completed Lisa Lyons null, PA - [facility] 03/19/2022 17:17:25 COVID-19, mRNA, LNP-S, PF, 30 mcg/0.3 mL dose 07/06/2020 completed Lisa Lyons null, PA - [facility] 03/19/2022 17:17:25 COVID-19, mRNA, LNP-S, PF, 30 mcg/0.3 mL dose 06/12/2020 completed Lisa Lyons null, PA - [facility] 03/19/2022 17:17:25 COVID-19, mRNA, LNP-S, PF, 30 mcg/0.3 mL dose, cathie-sucrose 07/13/2021 completed Lisa Lyons null, PA - [facility] 03/19/2022 17:17:25 Tdap 06/02/2012 completed Lisa Kirti null, PA - [facility] 03/19/2022 17:17:25 Past Encounters Encounter ID Performer Location Encounter Start Date Encounter Closed Date Diagnosis/Indication Diagnosis SNOMED-CT Code Diagnosis ICD10 Code Diagnosis IMO Codes [place] [id number] [place] [address] [address] 03/19/2022 16:01:50 03/19/2022 17:54:35 Herpes zoster 8489233 B02.9 Health Concerns Section Related Observation LastModified by Organization Detai ls LastModified Time None Recorded Concern Status LastModified by Organization Details LastModified Time None Recorded Advance Directives Directive None Recorded Payers Insurance Date Sequence Insurance Name Policy Number Policy Rain Covered Member ID Rain Member ID Guarantor Name 03/26/2022 1 [facility] PRIOR TO 05/29/2022 (MEDICARE REPLACEMENT/ADV ANTAGE - HMO) Marylin Moss [id number] Marylin Moss 03/26/2022 1 [place] [employer] Marylin Moss [id number] Marylin Moss Notes Date Note Type Note Provider Name and Address Organization Details Recorded Time 03/19/2022 text/html UC Rash/Skin LesionReported by Patientvesicular rash x 10 days starting left side of neck and coming anteriorly left shoulder left upper chest. itchy , burning and painful also. Flynn Foster NP [address] [place], [address], PA - [facility] 03/19/2022 17:52:58 OBGyn Episode No OBEpisode recorded.
== END 2025-01-11 15:20 | disposition home or self-care (01) ==
LOC: HO.PMC 14:37
PROVIDERS: PCP Student in an Organized Health Care Education/Training Program; Visit Provider Nurse Practitioner Family
DX: M54.40 Lumbago with sciatica, unspecified side (principal); M47.817 Spondylosis without myelopathy or radiculopathy, lumbosacral region; M54.50 Low back pain, unspecified; G89.29 Other chronic pain
CPT/HCPCS: 99204

== ENCOUNTER → 2025-01-11 14:36 | Outpatient (BNVA) | payer OTHER, SELFPAY | PROVIDERS: PCP Student in an Organized Health Care Education/Training Program; Visit Provider Nurse Practitioner Family | DX: M47.817 Spondylosis without myelopathy or radiculopathy, lumbosacral region (principal); M54.50 Low back pain, unspecified; G89.29 Other chronic pain; K59.00 Constipation, unspecified | CPT/HCPCS: 99202 ==